=== PATIENT | female | born 1990 | race Caucasian/White ===

== ENCOUNTER 2018-05-20 16:44 | Emergency (ER) | payer MEDICAID ==
[~2018-05-20] VITALS: Ht 167.6 cm; Wt 81.7 kg
[~2018-05-20 16:44] MED LIST: ADVIL200 M1 PO; BACTRIM DS TAB1 EACH PO; CIPRO500 MG PO; NORCO 5-325 TA1 EACH PO; PERCOCET 5-3251 EACH PO; TAMSULOSIN HCL0.4 MG PO; ZOFRAN ODT4 MG PO; ZOFRAN ODT4 MG SL
[2018-05-20] MEDS ORDERED: CLEOCIN HCL300 MG PO (17:05)
== END 2018-05-20 20:35 | disposition short-term general hospital (02) ==
LOC: ED 16:44
DX: O86.0 Infection of obstetric surgical wound (principal); Z87.891 Personal history of nicotine dependence; Z88.0 Allergy status to penicillin; Z88.1 Allergy status to other antibiotic agents
CPT/HCPCS: 74177; 80053; 81001; 85025; 96361; 96374; 96375; 99284; J1170; J3370; J7030; J7060; Q9967

== ENCOUNTER 2020-06-02 13:11 | Emergency (ER) | payer OTHER ==
[~2020-06-02] VITALS: Ht 167.6 cm; Wt 81.7 kg
--- OUTSIDE RECORDS SUMMARY | ~2020-06-02 | XMS | Encounter Summary ---
Demographics + + + | Address | [address] | | | [place] [address] | + + + | Home Phone | | + + + | Preferred Language | Unknown | + + + | Marital Status | Single | + + + | Evangelical Affiliation | 1041 | + + + | Race | White | + + + | Ethnic Group | Not or | + + + Author + + + | Author | [facility] | | | and [place] | + + + | Organization | [facility] | | | and [place] | + + + | Address | Unknown | + + + | Phone | Unavailable | + + + Support + + +---------+ + | Name | Relationship | Address | Phone | + + +---------+ + | Kameron Jones | ECON | Unknown | | + + +---------+ + Care Team Providers + +------+ + | Care Satellite Manager Name | Role | Phone | + +------+ + | No, Physician | PCP | Unavailable | + +------+ + Encounter Details +--------+ + + + + | Date | Type | Department | Care Team | Description | +--------+ + + + + | 10/16/ | Hospital | [facility] | Durga Lozada | Encounter for | | 2020 | Encounter | CENTER OB PROCEDURES | MD Britt [address] | counseling | | | | [address] | [address] | (Primary Dx) | | | | [facility] [place] | [place] [address] | | | | | [address] | [phone] | | | | | [phone] | | | +--------+ + + + + Social History + +-------+ +--------+------+ | Tobacco Use | Types | Packs/Day | Years | Date | | | | | Used | | + +-------+ +--------+------+ | Former Smoker | | 0.25 | | | + +-------+ +--------+------+ + + + | Sex Assigned at | Date Recorded | | | | + + + | Not on file | | + + + documented as of this encounter Medications at Time of Discharge + + + +---------+ + + | Medication | Sig | Dispensed | Refills | Start | End Date | | | | | | Date | | + + + +---------+ + + | | TAKE 1 TO 2 CAPSULES | | 0 | 08/20/20 | | | [id number] | BY MOUTH 4 TIMES | | | 19 | | | UTALBITAL [phone] | DAILY NEEDED FOR | | | | | | MG CAPS | UP TO 10 DAYS | | | | | + + + +---------+ + + | docusate sodium | Take 1 capsule by | 60 | 0 | 10/15/20 | | | (COLACE) 100 mg | mouth 2 times daily. | capsule | | 19 | | | capsule | | | | | | + + + +---------+ + + | hydrOXYzine | Take 1 tablet by | 60 | 0 | 08/20/20 | | | hydrochloride | mouth every 6 hours | tablet | | 19 | | | (ATARAX) 25 mg | as needed for | | | | | | tablet | Itching, Anxiety or | | | | | | | Other (pain). | | | | | + + + +---------+ + + | methylPREDNISolone | Follow package | 21 | 0 | 10/15/20 | | | (MEDROL DOSEPAK) 4 | directions. | tablet | | 19 | | | mg tablet | | | | | | + + + +---------+ + + | Misc. Devices | Dispense 1 electric | 1 each | 0 | 08/05/20 | | | (BREAST PUMP) MISC | pump | | | 19 | | + + + +---------+ + + | 27-0.8 mg | Take 1 tablet by | | 0 | 03/05/20 | | | multivitamin tablet | mouth daily with | | | 18 | | | | breakfast. | | | | | + + + +---------+ + + | promethazine | Take 1 tablet by | 30 | 0 | 08/05/20 | | | (PHENERGAN) 25 mg | mouth every 8 hours | tablet | | 19 | | | tablet | as needed. | | | | | + + + +---------+ + + | ibuprofen | Take 1 tablet by | 30 | 0 | 10/15/20 | | | (ADVIL,MOTRIN) 800 | mouth every 8 hours | tablet | | 19 | 0 | | MG tablet | as needed for Pain | | | | | | | for up to 14 days. | | | | | + + + +---------+ + + | oxyCODONE | Take 1 tablet by | 12 | 0 | 10/15/20 | | | (ROXICODONE) 5 mg | mouth every 4 hours | tablet | | 19 | 0 | | tablet | as needed for Pain | | | | | | | for up to 6 days. | | | | | + + + +---------+ + + | | Take 1 tablet by | 14 | 0 | 10/16/19 | | | sulfamethoxazole-tri | mouth 2 times daily | tablet | | 20 | 0 | | methoprim (BACTRIM | for 7 days. | | | | | | DS) 800-160 mg per | | | | | | | tabletIndications: | | | | | | | Wound cellulitis | | | | | | | after surgery | | | | | | + + + +---------+ + + documented as of this encounter Miscellaneous Notes Note - Radha Laguerre RN - 10/16/2019 10:00 AM PSTPt here for PPC has been mos tly just and using occasional bottles of pumped milk as supplement. Pt pumped 2 oz from one breast yesterday. Baby latching well after a couple of attempts, then had sust ained rhythmic sucking with gulping at the breast. Having wet and yellow liquid stools at ea ch feeding. Nipples are not sore. Wt: 3232g, -3.7% Ac pc: 28g on the Left, 26 g on the Right= 54g total Bili: 10.3@83h, low risk Plan feed on demand, pump as needed to relieve engorgement, and pt to call for follow up qu estions about antbx Rx received for possible wound infection today, f/u for wound check at [facility] tomorrow per Dr. Mariscal. documented in this encounter Plan of Treatment Not on filedocumented as of this encounter Visit Diagnoses + + | Diagnosis | + + | Encounter for counseling - Primary | + + documented in this encounter"
--- OUTSIDE RECORDS SUMMARY | ~2020-06-02 | XMS | Encounter Summary ---
Demographics + + + | Address | [address] | | | [place] [address] | + + + | Home Phone | | + + + | Preferred Language | Unknown | + + + | Marital Status | Single | + + + | Episcopalian Affiliation | 1041 | + + + | Race | White | + + + | Ethnic Group | Not or | + + + Author + + + | Author | [facility] | | | and [place] | + + + | Organization | [facility] | | | and [...] Team Providers + +------+ + | Care Lining Feller Name | Role | Phone | + +------+ + | Unknown, Physician | PCP | | + +------+ + Reason for Visit + +--------+ + | Reason | Onset | Comments | | | Date | | + +--------+ + | Follow-up | 07/16/ | | | | 2019 | | + +--------+ + Encounter Details +--------+ + + + + | Date | Type | Department | Care Team | Description | +--------+ + + + + | 07/16/ | Telephone | [facility] | Jamir SHAN Fernández | Follow-up | | 2018 | | [facility] | | | | | | [facility] | | | | | | [address] | | | | | | [address] [facility] | | | | | | [place] [address] | | | | | | [phone] | | | +--------+ + + + [...] documented as of this encounter Miscellaneous Notes Telephone Encounter - Jolene Bowie RN - 07/16/2019 10:41 AM PDTPt called directly. She i s 25 weeks . She is having a backache and migraines off/on for 2 days. Says back p ain is sharp and constant. Says she is also feeling dizzy and having blurred vision. C/o h er hands feeling more swollen. Denies any urinary symptoms. Says she does get short of feliciano ath when she walks across the room. She has been eating regularly. Offered pt an appt today in office if someone is able to bring her. Declines this, as she lives in [place], [place]. P t will have someone drive her to [facility] to be seen, as it is closer. Advised he r to do this soon, as she at least needs her BP taken. States understanding and is agreeable . documented in this enc ounter Plan of Treatment Not on filedocumented as of this encounter Visit Diagnoses Not on filedocumented in this encounter"
--- OUTSIDE RECORDS SUMMARY | ~2020-06-02 | XMS | Encounter Summary ---
Demographics + + + | Address | [address] | | | [place] [address] | + + + | Home Phone | | + + + | Preferred Language | Unknown | + + + | Marital Status | Single | + + + | Mandaen Affiliation | 1041 | + + + | Race | White | + + + | Ethnic Group | Not or | + + + Author + + + | Author | [facility] | | | and [place] | + + + | Organization | [facility] | | | and [...] Team Providers + +------+ + | Care Employment Agency Manager Name | Role | Phone | + +------+ + | Unknown, Physician | PCP | | + +------+ + Reason for Visit + + + | Reason | Comments | + + + | Routine | | | Visit | | + + + Encounter Details +--------+ + + + + | Date | Type | Department | Care Team | Description | +--------+ + + + + | 08/20/ | Routine | [facility] | Marisela Garcia | GA: 30 | | 2019 | | [facility]ATED | MD [address] | | | | | [facility] | [address] | | | | | [address] | [place] [address] | | | | | [address] [place], | [phone] | | | | | [place] [address] | | | | | | [phone] | | | +--------+ + + + [...] + + documented as of this encounter Last Filed Vital Signs + + + + + | Vital Sign | Reading | Time Taken | Comments | + + + + + | Blood Pressure | 128/72 | 08/20/2019 9:10 AM | | | | | PST | | + + + + + | Pulse | - | - | | + + + + + | Temperature | - | - | | + + + + + | Respiratory Rate | - | - | | + + + + + | Oxygen Saturation | - | - | | + + + + + | Inhaled Oxygen | - | - | | | Concentration | | | | + + + + + | Weight | 95.4 kg (210 lb 6.4 | 08/20/2019 9:10 AM | | | | oz) | PST | | + + + + + | Height | - | - | | + + + + + | Body Mass Index | 33.96 | 03/07/2019 11:27 AM | | | | | PDT | | + + + + + documented in this encounter Progress Notes Jose, Marisela Summers MD - 08/20/2019 9:00 AM PSTPt denies any contractions, leaking, bleeding. Good movements. Normal symptoms of 3rd trimester discussed. PTL precautions. We discussed contraception options - not wanting TL [facility] needs preauth- will send in Hydroxyzine instead - to use with tylenol Labor process discussed forms signed today She does not want Tubal sterilization Continue DFMR F/U 2w Valerie Arevalo Automotive Painter - 08/20/2019 9:00 AM [id number] 30w1d BP 128/72 | Wt 95.4 kg (210 lb 6.4 oz) | BMI 33.96 kg/m TW.8 kg (30 lb 6.4 oz) IWlb Concerns: 1.) Unable to get [facility] Rx due to needed prior authorization. Will call pharmacy to fax ove r and completed LILIA. Tdap: planned - HD due to insurance Rhogam: not indicated do cumented in this encounter Plan of Treatment Not on filedocumented as of this encounter Visit Diagnoses + + | Diagnosis | + + | Supervision of high risk , antepartum - Primary | + + | Desires (vaginal after ) trial Previous delivery, | | unspecified as to episode of care or not applicable | + + | Previous delivery, antepartum | + + documented in this encounter"
--- OUTSIDE RECORDS SUMMARY | ~2020-06-02 | XMS | Encounter Summary ---
Demographics + + + | Address | [address] | | | [place] [address] | + + + | Home Phone | | + + + | Preferred Language | Unknown | + + + | Marital Status | Single | + + + | [employer] Affiliation | 1041 | + + + | Race | White | + + + | Ethnic Group | Not or | + + + Author + + + | Author | [facility] | | | and Hanyana | + + + | Organization | [facility] | | | [...] Team Providers + +------+ + | Care Breading Machine Tender Name | Role | Phone | + +------+ + PCP | Unavailable | + +------+ + Encounter Details +--------+ + + + + | Date | Type | Department | Care Team | Description | +--------+ + + + + | 02/18/ | Emergency | [facility] | Darrell Sow | Pelvic pain; | | 2016 | | [facility] | DO [address] | Elevated blood | | | | [facility] | [place] | pressure; PID (acute | | | | [address] | [place] | pelvic inflammatory | | | | [place] | [address] | disease) | | | | [address] | [phone] | | | | | [phone] | | | +--------+ + + + + Social History + +-------+ +--------+------+ | Tobacco Use | Types | Packs/Day | Years | Date | | | | | Used | | + +-------+ +--------+------+ | Never Assessed | | | | | + +-------+ +--------+------+ + [...] + + + | Blood Pressure | 133/77 | 02/18/2017 11:49 AM | | | | | PDT | | + + + + + | Pulse | 81 | 02/18/2017 11:49 AM | | | | | PDT | | + + + + + | Temperature | 36.6 C (97.9 F) | 02/18/2017 11:49 AM | | | | | PDT | | + + + + + | Respiratory Rate | 14 | 02/18/2017 11:49 AM | | | | | PDT | | + + + + + | Oxygen Saturation | - | - | | + + + + + | Inhaled Oxygen | - | - | | | Concentration | | | | + + + + + | Weight | 77.1 kg (169 lb 15.5 | 02/18/2017 11:49 AM | | | | oz) | PDT | | + + + + + | Height | 167.6 cm (5' 6") | 02/18/2017 11:49 AM | | | | | PDT | | + + + + + | Body Mass Index | 27.43 | 02/18/2017 11:49 AM | | | | | PDT | | + + + + + documented in this encounter ED Notes Conversion Transaction, Provider Unknown - 02/18/2017 10:23 AM PDTFormatting of this note m ight be different from the original. ED Notes by Gracie Cedillo RN at 02/18/17 1023 Author: Gracie Cedillo RN Service: (none) Author Type: Registered Nurse Filed: 02/18/17 1023 Date of Service: 02/18/17 102 Status: Signed Cotton Gin Yard Supervisor: Gracie Cedillo RN (Registered Nurse) Patient given instructions on how to obtain a clean catch urine specimen. Patient verbaliz ed understanding. Specimen cup and towelettes provided. Patient to bathroom to attempt col lection. Gracie Cedillo RN 02/18/17 1023 EEDEvans, Ash Burrell PA-C - 02/18/2017 10:23 AM PDT ED Provider Notes by Ash Anand PA-C at 02/18/17 1023 Author: Ash Anand PA-C Service: (none) Author Type: Physician Boxing Instructor Filed: 02/18/17 1258 Date of Service: 02/18/17 102 Status: Attested Cotton Gin Yard Supervisor: Ash Anand PA-C (Physician Boxing Instructor) Cosigner: Darrell Sow DO at 0 02/20/171846 Attestation signed by Darrell Sow DO at 02/20/171846 I have reviewed the patient's chart. I was available for consultation during the care of the patient. Darrell Sow DO Procedures [facility] EM[facility]Y [facility]MENT IN [place] History of Present Illness Patient Identification Hannah Cody is a 27 y.o. female. Patient information was obtained from patient. History/Exam limitations: none. Patient presented to the Emergency Department by: Car Chief Complaint Chief Complaint Patient presents with Pelvic Pain Pt reports bilateral "ovary pain" for a few months, which became unbearable today. 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 Pt denies abdnormal vagi nal bleeding or discharge. She also reports nausea but denies emesis, diarrhea, fever, and d ysuria. The patient complains of pelvic pain. Onset of symptoms was few months ago, worsening today . Pain is described as to her lower abdomen on both sides. Pt denies prior history of ovaria n cysts, endometriosis, vaginal bleeding, or vaginal discharge. Denies fever, diarrhea, or d ysuria. She denies concerns for STI. LMP 01/28/17. Pain not associated with menses. Past Medical History Diagnosis Date Kidney stones Past Surgical History Procedure Laterality Date Foot surgery Left 2005 Cholecystectomy 2012 Prior to Admission medications Medication Sig Start Date End Date Taking? Authorizing Provider albuterol (VENTOLIN HFA) 108 (90 Base) MCG/ACT inhaler Inhale 2 puffs into the lungs every 4 (four) hours as needed for Wheezing or Shortness of Breath (Or Cough). With spacer. Disp 1 spacer 02/13/17 02/13/18 Phil U Sam, PALLIATIVE CARE NURSE ALBUTEROL IN Inhale into the lungs. Historical Provider azithromycin (ZITHROMAX) 250 MG tablet 2 tablets PO on day 1. Then 1 tablet daily until go ne 02/13/17 Phil U Sam, PALLIATIVE CARE NURSE benzonatate (TESSALON) 200 MG capsule Take 1 capsule by mouth 3 (three) times daily as need ed for Cough. 02/13/17 02/20/17 Phil U Sam, PALLIATIVE CARE NURSE predniSONE (DELTASONE) 20 MG tablet Take 2 tablets by mouth daily. 02/13/17 02/17/17 Phil U Sam, PALLIATIVE CARE NURSE promethazine-dextromethorphan (PROMETHAZINE-DM) 6.25-15 MG/5ML syrup Take 10 mLs by mouth 3 (three) times daily as needed for Cough. 02/13/17 02/20/17 Phil U Sam, PALLIATIVE CARE NURSE Allergies Allergen Reactions Keflex [Cephalexin] Hives Penicillins Hives Social History Social History Marital Status: Single Spouse Name: N/A Number of Children: N/A Years of Education: N/A Occupational History Not on file. Social History Main Topics Smoking status: Current Every Day Smoker -- 0.25 packs/day for 7 years Smokeless tobacco: Never Used Alcohol Use: Yes Comment: occasional Drug Use: No Sexual Activity: Partners: Male Control/ Protection: Condom Other Topics Concern Not on file Social History Narrative History reviewed. No pertinent family history. ROS Review of Systems Constitutional: Negative for: fever, chills, fatigue, sweats or weight loss Eyes: Negative for: decreased vision or irritated eyes Nose: Negative for: nosebleed Throat: Negative for: mouth sores Cardiovascular/Respiratory: Negative for: chest pain, shortness of breath, cough Gastrointestinal: Negative for: abdominal pain, vomiting, diarrhea, black or bloody stools Genitourinary: Negative for: dysuria, hematuria, urinary problems Positive for: pelvic pain Musculoskeletal: Negative for: myalgias and arthralgias Skin: Negative for: laceration or lesion Neuro and psych: Negative for: fainting, head injury, seizure, trouble walking Endocrine/Heme/Lymph: Negative for: swollen lymph nodes, easy bruising Physical Exam BP 127/91 mmHg | Pulse 81 | Temp(Src) 97.9 F (36.6 C) (Oral) | Resp 12 | Ht 1.676 m (5' 6") | Wt 77.1 kg (169 lb 15.6 oz) | BMI 27.45 kg/m2 | SpO2 96% | LMP 01/28/2017 (Exact Date ) Pulse Oximetry interpretation: Normal General: Alert, in moderate distress, tearful Eyes: Normal inspection, pupils equal and round, non-icteric Cardiovascular: Rate and rhythm normal No murmurs Respiratory: Breath sounds normal bilaterally Abdomen: Soft, TTP to lower abdomen, non-distended No guarding or rebound Genitourinary: Normal external genitalia. Mild erythema to transition zone with small amoun t of offwhite discharge Tenderness with bimanual examination to bilateral adnexa's and cervix Rectal exam: Deferred Back: Normal inspection ED Course Medical Decision Making and Emergency Department Course ED Department Course Differential diagnosis includes, but not limited to: PID, ovarian cyst, ovarian torsion, ST I, endometrosis, IBD, UTI, appendicitis, versus others Discussed labs, pelvic exam and US for which patient is agreeable. 1050 Pelvic examination preformed with SHAN Bowman as size stamper, see above findings. 1055 CBC resulted, leukocytosis noted. 1115 CMP with mild hyponatremia otherwise unremarkable. CRP normal. Urine not overwhelming for UTI, automatically reflexed to culture. Wet prep with WBC's otherwise unremarkable. Kalyan morrissey US read 1117 POC reviewed with patient, awaiting US results. Pt appears comfortable at current time . Will treat with 1 g Azithromycin to cover chlamydia. Ceftriaxone not given secondary to Ke flex allergy. 1135 US resulted, normal in appearance. US reviewed with patient. Pt aware of culture callb ack. Pt is feeling better and ready for discharge. PID diagnosis discussed with patient. Fol low up with Delivery Driver recommended and return to ED if symptoms worsen. Records Reviewed Old medical records. Nursing notes. Labs & Radiology Results Laboratory Evaluation Results Procedure Component Value Ref Range Date/Time Genital culture [[id number]] Collected: 02/18/17 1048 Order Status: Sent Specimen Information: Genital from Cervix Updated: 02/18/17 1245 Wet Prep [[id number]] Collected: 02/18/17 1048 Order Status: Completed Specimen Information: Genital from Cervix Updated: 02/18/17 1 105 Specimen Description CERVIX CULTURE WBC'S SEEN NO YEAST,TRICHOMONAS,OR CLUE CELLS SEEN NO SPERM SEEN Complete Metabolic Panel [[id number]] (Abnormal) Collected: 02/18/17 1033 Order Status: Completed Specimen Information: Blood Updated: 02/18/17 1103 SODIUM 132 (L) 135 - 145 mmol/L POTASSIUM 3.7 3.5 - 4.9 mmol/L CHLORIDE 98 (L) 99 - 109 mmol/L CO2 29 23 - 32 mmol/L ANION GAP AGAP 9 5 - 20 mmol/L GLUCOSE 87 65 - 99 mg/dL BUN 12 8 - 25 mg/dL CREATININE 0.84 0.50 - 1.00 mg/dL BUN/CREAT 14 CALCIUM 9.2 8.5 - 10.5 mg/dL TOTAL PROTEIN 8.2 6.3 - 8.2 g/dL Albumin 4.4 3.6 - 5.0 g/dL GLOBULIN 3.8 1.3 - 4.9 g/dL A/G 1.2 1.0 - 2.4 TBIL 0.2 0.1 - 1.5 mg/dL ALK PHOS 85 35 - 115 U/L AST 16 10 - 45 U/L ALT 34 10 - 65 U/L EGFR >60 >60 mL/min/1.73m2 C-Reactive Protein [[id number]] Collected: 02/18/17 1033 Order Status: Completed Specimen Information: Blood Updated: 02/18/17 1103 CRP <0.2 <0.5 mg/dL GC/Chlamydia Probe-Aptima [[id number]] Collected: 02/18/17 1048 Order Status: Sent Specimen Information: Cervix, Endocervical Updated: 02/18/17 1056 Urine microscopic only [[id number]] (Abnormal) Collected: 02/18/17 1033 Order Status: Completed Updated: 02/18/17 1053 WBC 6-10 0 - 5 /hpf RBC 0-2 0 - 5 /hpf EPITHELIAL 16-25 /lpf BACTERIA 2+ (A) NONE SEEN Urinalysis Comments CULTURE TO FOLLOW Urinalysis (reflex to microscopic/reflex to culture) [[id number]] (Abnormal) Collected: 02/18/17 103 Order Status: Completed Specimen Information: Urine from Urine, Clean Catch Updated: 02/18/17 1052 COLOR UA YELLOW CLARITY CLEAR Specific [place], UA 1.010 1.001 - 1.035 LEUKOCYTE ESTERASE TRACE (A) NEGATIVE NITRITE NEGATIVE NEGATIVE UROBILINOGEN 0.2 <1.1 mg/dL PROTEIN NEGATIVE NEGATIVE mg/dL PH,URINE 6.0 4.6 - 8.0 BLOOD NEGATIVE NEGATIVE KETONES NEGATIVE NEGATIVE mg/dL BILIRUBIN NEGATIVE NEGATIVE GLUCOSE NEGATIVE NEGATIVE mg/dL Urine Test [[id number]] Collected: 02/18/17 103 Order Status: Completed Specimen Information: Urine from Urine, Clean Catch Updated: 02/18/17 1047 Preg Test, Ur NEGATIVE NEGATIVE CBC w Auto Diff [[id number]] (Abnormal) Collected: 02/18/17 1033 Order Status: Completed Specimen Information: Blood Updated: 02/18/17 1046 WBC 18.59 (H) 3.80 - 11.00 K/uL RBC 5.34 (H) 3.70 - 5.10 M/uL HGB 15.9 (H) 11.3 - 15.5 g/dL HCT 47.1 (H) 34.0 - 46.0 % MCV 88.3 80.0 - 100.0 fl MCH 29.9 27.0 - 34.0 pg MCHC 33.8 32.0 - 35.5 g/dL RDW SD 41.1 37 - 53 fl PLT 257 150 - 400 K/uL MPV 7.5 fl DIFF TYPE AUTOMATED NEUTROPHILS 76.52 % LYMPHOCYTES 17.68 % MONOCYTES 5.16 % EOSINOPHILS 0.30 % BASOPHILS 0.34 % NEUTROPHILS ABS 14.23 (H) 1.90 - 7.40 K/uL LYMPHOCYTES ABS 3.29 1.00 - 3.90 K/uL MONOCYTES ABS 0.96 (H) 0.00 - 0.80 K/uL EOSINOPHILS ABS 0.06 0.00 - 0.50 K/uL BASOPHILS ABS 0.06 0.00 - 0.10 K/uL Radiology and EKG Evaluation Imaging Results US FEED ELEVATOR WORKER pelvis transabd/endovaginal (Final result) Result time: 02/18/17 11:22:35 Final result by Rad Results In Eliecer (02/18/17 11:22:35) Impression: 1. Normal sonographic appearance of the uterus and ovaries. Narrative: HANNAH CODY 1990 US PELVIS WITH ENDOVAGINAL 02/18/2017 11:19 AM HISTORY: Generalized pelvic pain COMPARISON: None. TECHNIQUE: Transabdominal and endovaginal pelvic ultrasound performed, grayscale and color flow evaluation. FINDINGS: The uterus is anteverted in position. The ovaries are not seen on transabdominal imaging. On endovaginal pelvic ultrasound, the uterus measures 8.5 x 3.8 x 5.4 cm. The endometrial c omplex measures 1.1 cm in thickness with a trilaminar appearance. The left ovary measures 2.0 x 2.2 x 3.5 cm. Scattered follicles are seen along the peripher y of the left ovary. Normal arterial waveforms are documented. The right ovary measures 4.3 x 2.5 x 3.4 cm. There are normal arterial waveforms of the rig ht ovary. Scattered follicles are seen along the periphery of the right ovary. There is no f ree fluid in the cul-de-sac. Diagnosis & Disposition ED Diagnoses Final diagnoses Pelvic pain Elevated blood pressure PID (acute pelvic inflammatory disease) Disposition: ED Disposition Discharge Condition at discharge: Stable Follow-up Information Follow up With Details Comments Contact Info [facility] Emergency Department in [place] If symptoms worsen [address] [facility] [address] Your Delivery Driver Schedule an appointment as soon as possible for a visit Call for the nex t available appointment [facility] Schedule an appointment as soon as possible for a visit If you would prefer to follow up with another OB [address], [address] [facility] [address] [facility] MD [place] In 4 weeks For elevated blood pressure [address] [facility] [address] Discharge Medications: Discharge Medication List as of 02/18/2017 11:45 AM START taking these medications Details doxycycline (VIBRA-TABS) 100 MG tablet Take 1 tablet by mouth 2 (two) times daily., Startin g 02/18/2017, Until 03/04/17, Print HYDROcodone-acetaminophen (NORCO) 5-325 MG per tablet Take 1-2 tablets by mouth every 6 (si x) hours as needed. Do not exceed 8 in a 24 hour period. Do not take Tylenol, as this medic ation has Tylenol in it., Starting 02/18/2017, Until Discontinued, Print Ash Anand PA-C 02/18/17 1258 Darrell Sow DO 02/20/17 6657 documented in this encounter Plan of Treatment Not on filedocumented as of this encounter Procedures + +--------+ + + + | Procedure Name | Priori | Date/Time | Associated Diagnosis | Comments | | | ty | | | | + +--------+ + + + | US PELVIS W | Routin | 02/18/2017 | | Results for this | | TRANSVAGINAL | e | 11:19 AM | | procedure are in the | | | | PDT | | results section. | + +--------+ + + + | GC/CHLAM APTIMA | Routin | 02/18/2017 | | Results for this | | | e | 10:48 AM | | procedure are in the | | | | PDT | | results section. | + +--------+ + + + | RONAL GENITAL | Timed | 02/18/2017 | | Results for this | | | | 10:48 AM | | procedure are in the | | | | PDT | | results section. | + +--------+ + + + | COLLIN KING | STAT | 02/18/2017 | | Results for this | | | | 10:48 AM | | procedure are in the | | | | PDT | | results section. | + +--------+ + + + | EXTERNAL LAB: CBC | Routin | 02/18/2017 | | Results for this | | | e | 10:33 AM | | procedure are in the | | | | PDT | | results section. | + +--------+ + + + | URINALYSIS, REFLEX | Routin | 02/18/2017 | | Results for this | | MICROSCOPIC AND/OR | e | 10:33 AM | | procedure are in the | | CULTURE | | PDT | | results section. | + +--------+ + + + | URINALYSIS, | Routin | 02/18/2017 | | Results for this | | MICROSCOPIC ONLY | e | 10:33 AM | | procedure are in the | | | | PDT | | results section. | + +--------+ + + + | HCG, URINE, QUAL | Routin | 02/18/2017 | | Results for this | | | e | 10:33 AM | | procedure are in the | | | | PDT | | results section. | + +--------+ + + + | CULTURE, URINE | Routin | 02/18/2017 | | Results for this | | | e | 10:33 AM | | procedure are in the | | | | PDT | | results section. | + +--------+ + + + | C-REACTIVE PROTEIN | Routin | 02/18/2017 | | Results for this | | | e | 10:33 AM | | procedure are in the | | | | PDT | | results section. | + +--------+ + + + | COMPREHENSIVE | Routin | 02/18/2017 | | Results for this | | METABOLIC PANEL | e | 10:33 AM | | procedure are in the | | | | PDT | | results section. | + +--------+ + + + documented in this encounter Results US Pelvis W Transvaginal (02/18/2017 11:19 AM PDT) + + | Specimen | + + | | + + + + + | Impressions | Performed At | + + + | 1. Normal sonographic appearance of the uterus and ovaries. | | | | | + + + + + + | Narrative | Performed At | + + + | HANNAH GLO 1990 US PELVIS WITH ENDOVAGINAL 02/18/2017 | | | 11:19 AM HISTORY: Generalized pelvic pain COMPARISON: None. | | | TECHNIQUE: Transabdominal and endovaginal pelvic ultrasound | | | performed, grayscale and color flow evaluation. FINDINGS: The | | | uterus is anteverted in position. The ovaries are not seen on | | | transabdominal imaging. On endovaginal pelvic ultrasound, the | | | uterus measures 8.5 x 3.8 x 5.4 cm. The endometrial complex measures | | | 1.1 cm in thickness with a trilaminar appearance. The left ovary | | | measures 2.0 x 2.2 x 3.5 cm. Scattered follicles are seen along the | | | periphery of the left ovary. Normal arterial waveforms are documented. | | | The right ovary measures 4.3 x 2.5 x 3.4 cm. There are normal | | | arterial waveforms of the right ovary. Scattered follicles are seen | | | along the periphery of the right ovary. There is no free fluid in the | | | cul-de-sac. | | + + + + + | Procedure Note | + + | Harry Gonzáles Conversion - 05/30/2019 2:18 AM PDT HANNAH CODY1990US PELVIS WITH | | ENDOVAGINAL02/18/2017 11:19 AM HISTORY: Generalized pelvic pain COMPARISON: None. | | TECHNIQUE: Transabdominal and endovaginal pelvic ultrasound performed, grayscale and | | color flow evaluation. FINDINGS: The uterus is anteverted in position. The ovaries are | | not seen on transabdominal imaging. On endovaginal pelvic ultrasound, the uterus | | measures 8.5 x 3.8 x 5.4 cm. The endometrial complex measures 1.1 cm in thickness with a | | trilaminar appearance. The left ovary measures 2.0 x 2.2 x 3.5 cm. Scattered follicles | | are seen along the periphery of the left ovary. Normal arterial waveforms are | | documented. The right ovary measures 4.3 x 2.5 x 3.4 cm. There are normal arterial | | waveforms of the right ovary. Scattered follicles are seen along the periphery of the | | right ovary. There is no free fluid in the cul-de-sac. IMPRESSION: 1. Normal | | sonographic appearance of the uterus and ovaries. | |On endovaginal pelvic ultrasound, the uterus measures 8.5 x 3.8 x 5.4 cm. The endometrial c omplex measures 1.1 cm in thickness with a trilaminar appearance. | | | |The left ovary measures 2.0 x 2.2 x 3.5 cm. Scattered follicles are seen along the peripher y of the left ovary. Normal arterial waveforms are documented. | | | |The right ovary measures 4.3 x 2.5 x 3.4 cm. There are normal arterial waveforms of the rig ht ovary. Scattered follicles are seen along the periphery of the right ovary. There is no f ree fluid in the cul-de-sac. | | | |IMPRESSION: | |1. Normal sonographic appearance of the uterus and ovaries. | | | | | + + Culture, Genital (02/18/2017 10:48 AM PDT) + + | Specimen | + + | | + + + + + | Narrative | Performed At | + + + | Specimen Description CERVIX CULTURE | EXTERNAL LAB | | 2+ | | | NORMAL GENITAL AMOR | | | NO FURTHER WORKUP | | + + + + +---------+ + + | Performing | Address | City/State/Zipcode | Phone Number | | Organization | | | | + +---------+ + + | EXTERNAL LAB | | | | + +---------+ + + [place], Genital (02/18/2017 10:48 AM PDT) + + | Specimen | + + | | + + + + + | Narrative | Performed At | + + + | Specimen Description CERVIX CULTURE | EXTERNAL LAB | | WBC'S SEEN | | | NO YEAST,TRICHOMONAS,OR CLUE CELLS | | | SEEN NO SPERM | | | SEEN | | + + + + +---------+ + + | Performing | Address | City/State/Zipcode | Phone Number | | Organization | | | | + +---------+ + + | EXTERNAL LAB | | | | + +---------+ + + GC/Chlam Aptima (02/18/2017 10:48 AM PDT) + + + + + + | Component | Value | Ref Range | Performed | Pathologist | | | | | At | Signature | + + + + + + | Source | CERVIXComment: Testing | | EXTERNAL | | | | performed at [facility], [address] | [address] | | [address], | | | | | | [place] [address] | | | | + + + + + + | Chlamydia | Not Detected | | EXTERNAL | | | Trachomatis | | | LAB | | | Naat | | | | | + + + + + + | Result | Not DetectedComment: | | EXTERNAL | | | | Testing performed at | | LAB | | | | [facility], [address] [facility] | | | | | | [place] | | | | | | [address] | | | | + + + + + + + + | Specimen | + + | | + + + +---------+ + + | Performing | Address | City/State/Zipcode | Phone Number | | Organization | | | | + +---------+ + + | EXTERNAL LAB | | | | + +---------+ + + Culture, Urine (02/18/2017 10:33 AM PDT) + + | Specimen | + + | | + + + + + | Narrative | Performed At | + + + | Specimen Description CLEAN CATCH URINE CULTURE | EXTERNAL LAB | | <10,000 CFU/ML | | | MIXED GRAM POSITIVE AMOR | | | NO FURTHER WORKUP | | + + + + +---------+ + + | Performing | Address | City/State/Zipcode | Phone Number | | Organization | | | | + +---------+ + + | EXTERNAL LAB | | | | + +---------+ + + Urinalysis, Reflex Microscopic and/or Culture (02/18/2017 10:33 AM PDT) + + + + + + | Component | Value | Ref Range | Performed | Pathologist | | | | | At | Signature | + + + + + + | Color | YELLOW | | EXTERNAL | | | | | | LAB | | + + + + + + | Clarity, | CLEAR | | EXTERNAL | | | Urine | | | LAB | | + + + + + + | Specific | 1.010 | 1.001 - 1.035 | EXTERNAL | | | [place], | | | LAB | | | Urine | | | | | + + + + + + | Leukocyte | TRACE (A) | | EXTERNAL | | | Esterase, | | | LAB | | | Urine | | | | | + + + + + + | Nitrite, | NEGATIVE | | EXTERNAL | | | Urine | | | LAB | | + + + + + + | Urobilinoge | 0.2 | mg/dL | EXTERNAL | | | n, Urine | | | LAB | | + + + + + + | Protein, | NEGATIVE | mg/dL | EXTERNAL | | | Urine | | | LAB | | + + + + + + | pH, Urine | 6.0 | 4.6 - 8.0 | EXTERNAL | | | | | | LAB | | + + + + + + | Blood, | NEGATIVE | | EXTERNAL | | | Urine | | | LAB | | + + + + + + | Ketones | NEGATIVE | mg/dL | EXTERNAL | | | | | | LAB | | + + + + + + | Bilirubin, | NEGATIVE | | EXTERNAL | | | Urine | | | LAB | | + + + + + + | Glucose, | NEGATIVEComment: Testing | mg/dL | EXTERNAL | | | Urine | performed at [facility], [address] | | [address] | | | | [address], | | | | | | [place] [address] | | | | + + + + + + + + | Specimen | + + | Urine specimen | | (specimen) | + + + +---------+ + + | Performing | Address | City/State/Zipcode | Phone Number | | Organization | | | | + +---------+ + + | EXTERNAL LAB | | | | + +---------+ + + , Urine, Qual (02/18/2017 10:33 AM PDT) + + + + + + | Component | Value | Ref Range | Performed | Pathologist | | | | | At | Signature | + + + + + + | Preg Test, | NEGATIVEComment: Testing | | EXTERNAL | | | Ur | performed at [facility], [address] | | LAB | | [address] | [address], | | | | | | [place] [address] | | | | + + + + + + + + | Specimen | + + | Urine specimen | | (specimen) | + + + +---------+ + + | Performing | Address | City/State/Zipcode | Phone Number | | Organization | | | | + +---------+ + + | EXTERNAL LAB | | | | + +---------+ + + Urinalysis, Microscopic Only (02/18/2017 10:33 AM PDT) + + + + + + | Component | Value | Ref Range | Performed | Pathologist | | | | | At | Signature | + + + + + + | WBC, UA | 6-10 | 0 - 5 /hpf | EXTERNAL | | | | | | LAB | | + + + + + + | RBC, UA | 0-2 | 0 - 5 /hpf | EXTERNAL | | | | | | LAB | | + + + + + + | Epithelial | 16-25 | /lpf | EXTERNAL | | | Cells | | | LAB | | + + + + + + | Bacteria, | 2+ (A) | | EXTERNAL | | | UA | | | LAB | | + + + + + + | Urinalysis | CULTURE TO | | EXTERNAL | | | Comments | FOLLOWComment: Testing | | LAB | | | | performed at [facility], [address] | | [address], | | | | | | [place] [address] | | | | + + + + + + + + | Specimen | + + | | + + + +---------+ + + | Performing | Address | City/State/Zipcode | Phone Number | | Organization | | | | + +---------+ + + | EXTERNAL LAB | | | | + +---------+ + + External Lab: CBC (02/18/2017 10:33 AM PDT) + + + + + + | Component | Value | Ref Range | Performed | Pathologist | | | | | At | Signature | + + + + + + | WBC | 18.59 (H) | 3.80 - 11.00 | EXTERNAL | | | | | K/uL | LAB | | + + + + + + | Non- | 5.34 (H) | 3.70 - 5.10 | EXTERNAL | | | Red Blood | | M/uL | LAB | | | Cells | | | | | | Counted | | | | | + + + + + + | Hemoglobin | 15.9 (H) | 11.3 - 15.5 | EXTERNAL | | | | | g/dL | LAB | | + + + + + + | Hematocrit, | 47.1 (H) | 34.0 - 46.0 % | EXTERNAL | | | POC | | | LAB | | + + + + + + | MCV | 88.3 | 80.0 - 100.0 fl | EXTERNAL | | | | | | LAB | | + + + + + + | MCH | 29.9 | 27.0 - 34.0 pg | EXTERNAL | | | | | | LAB | | + + + + + + | MCHC | 33.8 | 32.0 - 35.5 | EXTERNAL | | | | | g/dL | LAB | | + + + + + + | RDW-CV | 41.1 | 37 - 53 fl | EXTERNAL | | | | | | LAB | | + + + + + + | Platelet | 257 | 150 - 400 K/uL | EXTERNAL | | | Count | | | LAB | | | Plasma | | | | | + + + + + + | MPV | 7.5 | fl | EXTERNAL | | | | | | LAB | | + + + + + + | Differentia | AUTOMATED | | EXTERNAL | | | l Type | | | LAB | | + + + + + + | % Segmented | 76.52 | % | EXTERNAL | | | | | | LAB | | | Neutrophils | | | | | + + + + + + | % | 17.68 | % | EXTERNAL | | | Lymphocytes | | | LAB | | + + + + + + | % Monocytes | 5.16 | % | EXTERNAL | | | | | | LAB | | + + + + + + | % | 0.30 | % | EXTERNAL | | | Eosinophils | | | LAB | | + + + + + + | % Basophils | 0.34 | % | EXTERNAL | | | | | | LAB | | + + + + + + | Absolute | 14.23 (H) | 1.90 - 7.40 | EXTERNAL | | | Segmented | | K/uL | LAB | | | Neutrophils | | | | | + + + + + + | Absolute | 3.29 | 1.00 - 3.90 | EXTERNAL | | | Lymphocytes | | K/uL | LAB | | + + + + + + | Absolute | 0.96 (H) | 0.00 - 0.80 | EXTERNAL | | | Monocytes | | K/uL | LAB | | + + + + + + | Absolute | 0.06 | 0.00 - 0.50 | EXTERNAL | | | Eosinophils | | K/uL | LAB | | + + + + + + | Absolute | 0.06Comment: Testing | 0.00 - 0.10 | EXTERNAL | | | Basophils | performed at [facility], [address] | [address] | | | | [address] [place], | | | | | | [place] [address] | | | | + + + + + + + + | Specimen | + + | Blood specimen | | (specimen) | + + + +---------+ + + | Performing | Address | City/State/Zipcode | Phone Number | | Organization | | | | + +---------+ + + | EXTERNAL LAB | | | | + +---------+ + + C-Reactive Protein (02/18/2017 10:33 AM PDT) + + + + + + | Component | Value | Ref Range | Performed | Pathologist | | | | | At | Signature | + + + + + + | CRP | <0.2Comment: Testing | mg/dL | EXTERNAL | | | | performed at [facility], [address] | | LAB | | | | [address], | | | | | | [place] [address] | | | | + + + + + + + + | Specimen | + + | Blood specimen | | (specimen) | + + + +---------+ + + | Performing | Address | City/State/Zipcode | Phone Number | | Organization | | | | + +---------+ + + | EXTERNAL LAB | | | | + +---------+ + + Comprehensive Metabolic Panel (02/18/2017 10:33 AM PDT) + + + + + + | Component | Value | Ref Range | Performed | Pathologist | | | | | At | Signature | + + + + + + | Na | 132 (L) | 135 - 145 | EXTERNAL | | | | | mmol/L | LAB | | + + + + + + | K | 3.7 | 3.5 - 4.9 | EXTERNAL | | | | | mmol/L | LAB | | + + + + + + | Cl | 98 (L) | 99 - 109 mmol/L | EXTERNAL | | | | | | LAB | | + + + + + + | CO2 | 29 | 23 - 32 mmol/L | EXTERNAL | | | | | | LAB | | + + + + + + | Anion Gap | 9 | 5 - 20 mmol/L | EXTERNAL | | | | | | LAB | | + + + + + + | Glucose, | 87 | 65 - 99 mg/dL | EXTERNAL | | | Fasting | | | LAB | | + + + + + + | BUN | 12 | 8 - 25 mg/dL | EXTERNAL | | | | | | LAB | | + + + + + + | Creatinine | 0.84 | 0.50 - 1.00 | EXTERNAL | | | | | mg/dL | LAB | | + + + + + + | BUN/Creatin | 14 | | EXTERNAL | | | ine Ratio | | | LAB | | + + + + + + | Calcium | 9.2 | 8.5 - 10.5 | EXTERNAL | | | | | mg/dL | LAB | | + + + + + + | Protein, | 8.2 | 6.3 - 8.2 g/dL | EXTERNAL | | | Total | | | LAB | | + + + + + + | Albumin | 4.4 | 3.6 - 5.0 g/dL | EXTERNAL | | | | | | LAB | | + + + + + + | Globulin | 3.8 | 1.3 - 4.9 g/dL | EXTERNAL | | | | | | LAB | | + + + + + + | A/G Ratio | 1.2 | 1.0 - 2.4 | EXTERNAL | | | | | | LAB | | + + + + + + | Bilirubin | 0.2 | 0.1 - 1.5 mg/dL | EXTERNAL | | | Total | | | LAB | | + + + + + + | ALP, | 85 | 35 - 115 U/L | EXTERNAL | | | External | | | LAB | | + + + + + + | AST | 16 | 10 - 45 U/L | EXTERNAL | | | | | | LAB | | + + + + + + | ALT | 34 | 10 - 65 U/L | EXTERNAL | | | | | | LAB | | + + + + + + | Estimated | >60Comment: GFR <60: | mL/min/1.73m2 | EXTERNAL | | | GFR | CHRONIC KIDNEY DISEASE, | | LAB | | | | IF FOUND OVER A 3 MONTH | | | | | | PERIOD.GFR <15: KIDNEY | | | | | | FAILURE.FOR | | | | | | AMERICANS, MULTIPLY THE | | | | | | CALCULATED GFR BY | | | | | | 1.210.Testing performed | | | | | | at [facility], [address] | | | | | | [place] | | | | | | [address] | | | | + + + + + + + + | Specimen | + + | Blood specimen | | (specimen) | + + + +---------+ + + | Performing | Address | City/State/Zipcode | Phone Number | | Organization | | | | + +---------+ + + | EXTERNAL LAB | | | | + +---------+ + + documented in this encounter Visit Diagnoses + + | Diagnosis | + + | Pelvic pain | + + | Elevated blood pressure Elevated blood pressure reading without diagnosis of | | hypertension | + + | PID (acute pelvic inflammatory disease) Acute parametritis and pelvic cellulitis | + + documented in this encounter
--- OUTSIDE RECORDS SUMMARY | ~2020-06-02 | XMS | Encounter Summary ---
Demographics + + + | Address | [address] | | | [place] [address] | + + + | Home Phone | | + + + | Preferred Language | Unknown | + + + | Marital Status | Single | + + + | Yarsani Affiliation | 1041 | + + + | Race | White | + + + | Ethnic Group | Not or | + + + Author + + + | Author | [facility] | | | and Hanyana | + + + | Organization | [facility] | | | and [...] Team Providers + +------+ + | Care Merchandise Buyer Name | Role | Phone | + +------+ + | No, Physician | PCP | Unavailable | + +------+ + Encounter Details +--------+ + + + + | Date | Type | Department | Care Team | Description | +--------+ + + + + | 03/05/ | Orders Only | [facility] | Conversion | | | 2018 | | CONVERSION [phone] | Transaction, | | | | | [address] | Provider Unknown | | | | | [place], [place] | | | | | | [phone] | (Fax) | | | | | | | | +--------+ + + + [...] + + documented as of this encounter Plan of Treatment Not on filedocumented as of this encounter Visit Diagnoses Not on filedocumented in this encounter"
--- OUTSIDE RECORDS SUMMARY | ~2020-06-02 | XMS | Clinical Summary ---
Demographics + + + | Address | [address] | | | [place] [address] | + + + | Home Phone | | + + + | Preferred Language | Unknown | + + + | Marital Status | Single | + + + | Cheondoism Affiliation | 1041 | + + + | Race | White | + + + | Ethnic Group | Not or | + + + Author + + + | Author | [facility] | | | and Hanyana | + + + | Organization | [facility] | | | and [...] Team Providers + +------+ + | Care Training Representative Name | Role | Phone | + +------+ + | No, Physician | PCP | Unavailable | + +------+ + Allergies + + + + + + | Active Allergy | Reactions | Severity | Noted | Comments | | | | | Date | | + + + + + + | Chlorhexidine | Rash | High | 11/07/19 | I recommend using | | Gluconate | | | 20 | iodine-based prep in | | | | | | the future. Very | | | | | | clinically | | | | | | significant rash | | | | | | occurred in the area | | | | | | of the ChloraPrep | | | | | | exposed prep area. | | | | | | Did not cause any | | | | | | respiratory issues | | | | | | but required | | | | | | systemic steroid | | | | | | therapy to control | | | | | | the itching symptoms | + + + + + + | Cephalexin | Hives | High | 02/14/20 | | | | | | 17 | | + + + + + + | Penicillins | Hives | High | 02/14/20 | | | | | | 17 | | + + + + + + | Sumatriptan | Other (See Comments) | Medium | 01/01/20 | | | | | | 19 | | + + + + + + | Vancomycin | Hives | High | 08/27/20 | | | | | | 18 | | + + + + + + Medications + + + +---------+------+------+-------+ | Medication | Sig | Dispensed | Refills | Star | End | Statu | | | | | | t | Date | s | | | | | | Date | | | + + + +---------+------+------+-------+ | 27-0.8 mg | Take 1 tablet by | | 0 | 05/2 | | Activ | | multivitamin tablet | mouth daily with | | | 1/20 | | e | | | breakfast. | | | 18 | | | + + + +---------+------+------+-------+ | Misc. Devices | Dispense 1 electric | 1 each | 0 | 10/2 | | Activ | | (BREAST PUMP) MISC | pump | | | 1/20 | | e | | | | | | 19 | | | + + + +---------+------+------+-------+ | promethazine | Take 1 tablet by | 30 | 0 | 10/2 | | Activ | | (PHENERGAN) 25 mg | mouth every 8 hours | tablet | | 1/20 | | e | | tablet | as needed. | | | 19 | | | + + + +---------+------+------+-------+ +---+ + | | Additional | | | InformationPatient | | | not taking. Reported | | | on 10/17/2019 2:20 | | | PM | +---+ + + + +--------+---+------+---+-------+ | hydrOXYzine | Take 1 tablet by | 60 | 0 | 11/0 | | Activ | | hydrochloride | mouth every 6 hours | tablet | | 5/20 | | e | | (ATARAX) 25 mg | as needed for | | | 19 | | | | tablet | Itching, Anxiety or | | | | | | | | Other (pain). | | | | | | + + +--------+---+------+---+-------+ +---+ + | | Additional | | | InformationPatient | | | not taking. Reported | | | on 10/17/2019 2:20 | | | PM | +---+ + + + +---------+---+------+---+-------+ | | TAKE 1 TO 2 CAPSULES | | 0 | 11/0 | | Activ | | [id number] | BY MOUTH 4 TIMES | | | 5/20 | | e | | UTALBITAL 50-325-40 | DAILY NEEDED FOR | | | 19 | | | | MG CAPS | UP TO 10 DAYS | | | | | | + + +---------+---+------+---+-------+ | methylPREDNISolone | Follow package | 21 | 0 | 12/3 | | Activ | | (MEDROL DOSEPAK) 4 | directions. | tablet | | /20 | | e | | mg tablet | | | | 19 | | | + + +---------+---+------+---+-------+ | docusate sodium | Take 1 capsule by | 60 | 0 | 12/3 | | Activ | | (COLACE) 100 mg | mouth 2 times daily. | capsule | | 1/20 | | e | | capsule | | | | 19 | | | + + +---------+---+------+---+-------+ | clotrimazole | Apply twice daily to | 24 g | 1 | 01/0 | | Activ | | (LOTRIMIN) 1% | affected area | | | 2/20 | | e | | creamIndications: | | | | 20 | | | | Tinea cruris | | | | | | | + + +---------+---+------+---+-------+ Active Problems + + + | Problem | Noted Date | + + + | Tinea cruris | 10/17/2019 | + + + + + | Overview: October 17, 2019, some evidence of tinea cruris in | | her pannus fold and groin, antifungal recommended. Image taken | | and can be seen in the media tab | + + + + + | Allergic reaction to chemical substance | 10/17/2019 | + + + + + | Overview: 10/17/2019, pt had a rxnto the abdominal prep | | solution at time of her , it has now worsened and she | | has issues w/ her pannus fold, no bactera infection | + + + + + | Delivered by delivery following previous | 10/14/2019 | | delivery | | + + + | Delivery outcome of single liveborn | 10/14/2019 | + + + | Urticaria | 10/14/2019 | + + + | Onset (spontaneous) of labor after 37 completed weeks of | 10/12/2019 | | gestation but before 39 completed weeks gestation, with delivery | | | by (planned) section | | + + + + + | Overview: Patient presented in early labor and underwent | | repeat delivery | + + + + + | Excessive growth affecting management of in third | 08/05/2019 | | trimester | | + + + | Supervision of high risk , antepartum | 07/08/2019 | + + + + + | Overview: Patient is high risk due to history of prior | | delivery | + + + + + | Short interval between pregnancies affecting , | 03/19/2019 | | antepartum | | + + + | Previous delivery, antepartum | 03/19/2019 | + + + + + | Overview: Operation Report dated 05/14/2018. [id number], | | Arrest of Dilation. Primary Low Transverse Section | + + + + + | Desires (vaginal after ) trial | 03/19/2019 | + + + + + | Overview: Based on recent obstetrical visit patient has opted | | for repeat section and this was scheduled for October 21 | | with Dr. Garcia | + + + + + | History of acute PID | 02/28/2017 | + + + Immunizations + + + + | Name | Administration Dates | Next Due | + + + + | DTP (PED) | 1996, 09/03/1992, 1991, | | | | 1991, 1991 | | + + + + | HEP A, 2 DOSE | 02/23/2000, 07/22/1999 | | | (PED/ADOL) | | | + + + + | HIB HBOC CONJUGATE, | 07/15/1992, 06/19/1992, 1991, | | | 4 DOSE (PED) | 1991, 1991 | | + + + + | Hep B (PED/ADOL) 3 | 12/10/1999, 05/07/1999, 03/25/1999 | | | DOSE | | | + + + + | INFLUENZA TRIV | 08/29/2019 | | | W/PRES(PED/ADOL/ADUL | | | | T),MULTIDOSE | | | + + + + | MMR, 2 DOSE | 05/07/1999, 07/15/1992, 06/19/1992 | | | (PED/ADULT) | | | + + + + | POLIOVIRUS,OPV | 1996, 09/03/1992, 1991, | | | (LIVE) | 1991 | | + + + + | TDAP, (ADOL/ADULT) | 08/29/2019, 03/13/2018, 11/21/2013 | | + + + + Family History + + +------+ + | Medical History | Relation | Name | Comments | + + +------+ + | Diabetes, NIDDM | Father | | | + + +------+ + | Multiple sclerosis | Mother | | | + + +------+ + | Breast cancer | Neg Hx | | | + + +------+ + | Diabetes, IDDM | Neg Hx | | | + + +------+ + | Heart defect | Neg Hx | | | + + +------+ + | Heart disease | Neg Hx | | | + + +------+ + | Uterine cancer | Neg Hx | | | + + +------+ + + +------+ + + | Relation | Name | Status | Comments | + +------+ + + | Brother | | Alive | | + +------+ + + | Father | | Alive | | + +------+ + + | Father | | | | + +------+ + + | Maternal Grandfather | | | | + +------+ + + | Maternal Grandmother | | | | + +------+ + + | Mother | | Alive | | + +------+ + + | Mother | | | | + +------+ + + | Paternal Grandfather | | | | + +------+ + + | Paternal Grandmother | | Alive | | + +------+ + + | Sister | | Alive | | + +------+ + + | Sister | | Alive | | + +------+ + + | Sister | | Alive | | + +------+ + + Social History + +-------+ +--------+------+ [...] on file | | + + + Last Filed Vital Signs + + + + + | Vital Sign | Reading | Time Taken | Comments | + + + + + | Blood Pressure | 118/68 | 10/17/2019 2:17 PM | | | | | PST | | + + + + + | Pulse | 64 | 10/17/2019 2:17 PM | | | | | PST | | + + + + + | Temperature | 36.6 C (97.9 F) | 10/15/2019 8:00 AM | | | | | PST | | + + + + + | Respiratory Rate | 18 | 10/15/2019 8:00 AM | | | | | PST | | + + + + + | Oxygen Saturation | 100% | 10/17/2019 2:17 PM | | | | | PST | | + + + + + | Inhaled Oxygen | - | - | | | Concentration | | | | + + + + + | Weight | 95.3 kg (210 lb 1.6 | 10/17/2019 2:17 PM | | | | oz) | PST | | + + + + + | Height | 168.1 cm (5' 6.2") | 10/12/2019 1:31 PM | | | | | PST | | + + + + + | Body Mass Index | 33.71 | 10/12/2019 1:31 PM | | | | | PST | | + + + + + Plan of Treatment + + + + + | Health Maintenance | Due Date | Last | Comments | | | | Done | | + + + + + | Hepatitis C | | | | | Screening | 1 | | | + + + + + | Cervical Cancer | | | | | Screening (Pap) | 2 | | | + + + + + | Vaccine: Influenza | | 08/29/20 | | | (#1) | 0 | 19 | | + + + + + | Vaccine: | | 08/29/20 | | | Dtap/Tdap/Td (9 - | | 19, | | | Td) | | 03/13/20 | | | | | 18, | | | | | 11/21/19 | | | | | 14, | | | | | Addition | | | | | al | | | | | history | | | | | exists | | + + + + + Results Not on filefrom Last 3 Months Insurance + +--------+ +--------+ +---------+--------+ | Payer | Benefi | Subscriber | Effect | Phone | Address | Type | | | t Plan | ID | shannan | | | | | | / | | Dates | | | | | | Group | | | | | | + +--------+ +--------+ +---------+--------+ | [place] | MEDICA | [id number] | 10/16/19 | [phone] | | Med[place] | | | [place] | | 19-Pre | 2 | | id | | | PLUS | | sent | | | | + +--------+ +--------+ +---------+--------+ + +--------+ +--------+ + + | Guarantor Name | Accoun | Relation to | Date | Phone | Billing Address | | | t Type | Patient | of | | | | | | | | | | + +--------+ +--------+ + + | Hannah Reddy | Person | Self | [birth year] | [address] [place], | | [place] | al/Fam | | 1989 | [phone] | [place] [address] | | | karen | | | 9 (Home) | | + +--------+ +--------+ + + Advance Directives + + + + + | Type | Date Recorded | Patient | Explanation | | | | Psychological Operations | | + + + + + | Power of | | | | | Assistant Signal Maintainer | | | | + + + + + | Advance | 10/12/2019 | | | | Directive | 2:05 PM | | | + + + + + + + + + + | Code Status | Date | Date | Comments | | | Activated | Inactivated | | + + + + + | Full Code | 10/12/2019 | 10/15/2019 | | | | 8:56 PM | 3:17 PM | | + + + + +
--- OUTSIDE RECORDS SUMMARY | ~2020-06-02 | XMS | Encounter Summary ---
Demographics + + + | Address | [address] | | | [place] [address] | + + + | Home Phone | | + + + | Preferred Language | Unknown | + + + | Marital Status | Single | + + + | Bahai Affiliation | 1041 | + + + | Race | White | + + + | Ethnic Group | Not or | + + + Author + + + | Author | [facility] | | | and Hanyana | + + + | Organization | [facility] | | [...] Team Providers + +------+ + | Care Speech And Language Assistant Name | Role | Phone | + +------+ + | No, Physician | PCP | Unavailable | + +------+ + Encounter Details +--------+ + + + + | Date | Type | Department | Care Team | Description | +--------+ + + + + | 10/17/ | Orders Only | 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
--- OUTSIDE RECORDS SUMMARY | ~2020-06-02 | XMS | Encounter Summary ---
Demographics + + + | Address | [address] | | | [place] [address] | + + + | Home Phone | | + + + | Preferred Language | Unknown | + + + | Marital Status | Single | + + + | Orthodoxy Affiliation | 1041 | + + + | Race | White | + + + | Ethnic Group | Not or | + + + Author + + + | Author | [facility] | | | and Hanyana | + + + | Organization | [facility] | | | and [...] Team Providers + +------+ + | Care Fishing Rod Mechanic Name | Role | Phone | + +------+ + | Unknown, Doctor | PCP | | + +------+ + Encounter Details +--------+ + + + + | Date | Type | Department | Care Team | Description | +--------+ + + + + | 08/27/ | Orders Only | [facility] | Max Anderson PA-C | | | 2017 | | URGENT CARE XRAY | [address] | | | | | [address] | [place] | | | | | [place] | [address] | | | | | [address] | | | | | | [phone] | | | +--------+ + + + [...] | + +--------+ + + + | XR CHEST 2 VIEWS | Routin | 08/27/2018 | | Results for this | | | e | 2:59 PM | | procedure are in the | | | | PST | | results section. | + +--------+ + + + documented in this encounter Results XR Chest 2 Vws (08/27/2018 2:59 PM PST) + + | Specimen | + + | | + + + + + | Impressions | Performed At | + + + | 1. No acute process. | | + + + + + + | Narrative | Performed At | + + + | [facility] X[facility] CHEST 2 VIEW FRONTAL AND LATERAL HISTORY: | | | 28 years. Female. Cough. TECHNIQUE: Frontal and lateral views of | | | the chest were obtained. COMPARISON: 09/02/2017 FINDINGS: | | | The heart is normal in size. No pulmonary vascular congestion. No | | | pneumothorax. No focal airspace disease or pleural effusion. | | + + + + + | Procedure Note | + + | Eliecer, Rad Conversion - 06/06/2019 4:36 PM PDT [facility] CHEST 2 VIEW FRONTAL | | AND LATERAL HISTORY:28 years. Female. Cough. TECHNIQUE:Frontal and lateral views of the | | chest were obtained. COMPARISON:09/02/2017 FINDINGS:The heart is normal in size. No | | pulmonary vascular congestion. No pneumothorax. No focal airspace disease or pleural | | effusion. IMPRESSION: 1. No acute process. | |TECHNIQUE: | |Frontal and lateral views of the chest were obtained. | | | |COMPARISON: | |09/02/2017 | | | |FINDINGS: | |The heart is normal in size. No pulmonary vascular congestion. No pneumothorax. No focal ai rspace disease or pleural effusion. | | | |IMPRESSION: | |1. No acute process. | | | | | + + documented in this encounter Visit Diagnoses Not on filedocumented in this encounter"
--- OUTSIDE RECORDS SUMMARY | ~2020-06-02 | XMS | Encounter Summary ---
Demographics + + + | Address | [address] | | | [place] [address] | + + + | Home Phone | | + + + | Preferred Language | Unknown | + + + | Marital Status | Single | + + + | Sabianism Affiliation | [id number] | + + + | Race | White | + + + | Ethnic Group | Not or | + + + Author + + + | Author | [facility] | | | and [place] | + + + | Organization | [facility] | | [...] Team Providers + +------+ + | Care Parts Identifier Name | Role | Phone | + +------+ + PCP | Unavailable | + +------+ + Encounter Details +--------+ + + + + | Date | Type | Department | Care Team | Description | +--------+ + + + + | 05/13/ | Orders Only | [facility] | Rahul Eli | | | 2019 | | [facility]OC[facility]ATED | Tony ROMERO MD [address] | | | | | [facility] | [address] | | | | | [address] | [place] [address] | | | | | [address], | [phone] | | | | | [place] [address] | | | | | | [phone] | | | +--------+ + + + [...] + + + | Blood Pressure | 112/62 | 05/13/2019 1:53 PM | | | | | PDT | [...] + + + + | Weight | 86.2 kg (190 lb) | 05/13/2019 1:53 PM | | | | | PDT | | + + + + + | Height | - | - | | + + + + + | Body Mass Index | 30.67 | 03/07/2019 11:27 AM | | | | | PDT | | + + + + + documented in this encounter Progress Notes Rahul Eli III, MD - 05/13/2019 1:40 PM PDT Progress Notes by Rahul Eli III, MD at 05/13/19 3272 Author: Rahul Eli III, MD Service: (none) Author Type: Physician Filed: 05/18/19 0630 Encounter Date: 05/13/2019 Status: Signed Anchor Operator: Rahul Eli III, MD (Physician) Records reviewed, scan date 05/13/2019. Operation Report dated 05/14/2018. [id number], Arrest of Dilation. Primary Low Transverse Section Rahul Zhang III, MD - 05/13/2019 1:40 PM PDTFormatting of this note might be differen t from the original. Progress Notes by Rahul Eli III, MD at 05/13/19 1340 Author: Rahul Eli III, MD Service: (none) Author Type: Physician Filed: 05/13/19 5655 Encounter Date: 05/13/2019 Status: Signed Anchor Operator: Rahul Eli III, MD (Physician) I recommended [facility]SA[facility] for ONTD screening. She declines at this time. She would reconsider this after her anatomy ultrasound. Rahul Zhang III, MD - 05/13/2019 1:40 PM PDTFormatting of this note might be differen t from the original. Progress Notes by Rahul Eli III, MD at 05/13/19 8183 Author: Rahul Eli III, MD Service: (none) Author Type: Physician Filed: 05/13/19 8335 Encounter Date: 05/13/2019 Status: Signed Anchor Operator: Rahul Eli III, MD (Physician) 29-year-old P2 [id number] MANUEL of October 28 based from 8-week ultrasound labs reviewed. She is Rh+. Panorama results are low risk, female fetus. Complains of UTI symptoms today, urine dip is negative. Will send urine for culture and tr eat accordingly. First was delivered vaginally. This was followed by her primary section April 2018 secondary to nonreassuring feta l heart tracing. Surgery was done at [facility]. We will request the operation report. She would like a trial o f labor after . We discussed control options. She had never used hormonal control. She is not wanting permanent sterilization. I recommended norethindrone. onvers ion Transaction, Provider Unknown - 05/13/2019 1:40 PM PDT Progress Notes by Kristine Moura MA at 05/13/19 1340 Author: Kristine Moura MA Service: (none) Author Type: Retail Sales Teammate Filed: 05/13/19 1403 Encounter Date: 05/13/2019 Status: Signed Anchor Operator: Kristine Moura MA (Retail Sales Teammate) IWlb TWlb Concerns: Pt thinks she might have a UTI. Reports having urinary frequency. Anatomical US scheduled 06/10/19. docume nted in this encounter Plan of Treatment Not on filedocumented as of this encounter Procedures + +--------+ + + + | Procedure Name | Priori | Date/Time | Associated Diagnosis | Comments | | | ty | | | | + +--------+ + + + | POCT URINALYSIS | Routin | 05/13/2019 | | Results for this | | DIPSTICK | e | 2:08 PM | | procedure are in the | | | | PDT | | results section. | + +--------+ + + + documented in this encounter Results POCT Urinalysis Dipstick Non-Automated (05/13/2019 2:08 PM PDT) + + + + + + | Component | Value | Ref Range | Performed | Pathologist | | | | | At | Signature | + + + + + + | Color, UA, | Yellow | | EXTERNAL | | | POC | | | LAB | | + + + + + + | Clarity, | Clear | | EXTERNAL | | | UA, POC | | | LAB | | + + + + + + | Glucose, | Negative | mg/dl | EXTERNAL | | | UA, POC | | | LAB | | + + + + + + | Bilirubin, | Negative | | EXTERNAL | | | UA, POC | | | LAB | | + + + + + + | Ketones, | Negative | mg/dl | EXTERNAL | | | POC | | | LAB | | + + + + + + | Specific | 1.010 | 1.001 - 1.030 | EXTERNAL | | | [place], | | | LAB | | | UA, POC | | | | | + + + + + + | Blood, UA, | Negative | | EXTERNAL | | | POC | | | LAB | | + + + + + + | pH, UA, POC | 6.5 | 5.0 - 7.5 | EXTERNAL | | | | | | LAB | | + + + + + + | Protein, | Negative | mg/dl | EXTERNAL | | | UA, POC | | | LAB | | + + + + + + | Urobilinoge | 0.2 | 0.2 - 1.0 mg/dl | EXTERNAL | | | n, UA, POC | | | LAB | | + + + + + + | Leukocyte | Negative | | EXTERNAL | | | Esterase, | | | LAB | | | UA, POC | | | | | + + + + + + | Nitrite, | Negative | | EXTERNAL | | | UA, POC | | | LAB | | + + + + + + | Appearance, | | | EXTERNAL | | | Body Fluid | | | LAB | | + [...]
--- OUTSIDE RECORDS SUMMARY | ~2020-06-02 | XMS | Encounter Summary ---
Demographics + + + | Address | [address] | | | [place] [address] | + + + | Home Phone | | + + + | Preferred Language | Unknown | + + + | Marital Status | Single | + + + | Buddhist Affiliation | [id number] | + + + | Race | White | + + + | Ethnic Group | Not or | + + + Author + + + | Author | [facility] | | | and Hanyana | + + + | Organization | [facility] | | | [...] Team Providers + +------+ + | Care Battalion Fire Chief Name | Role | Phone | + +------+ + | No, Physician | PCP | Unavailable | + +------+ + Reason for Visit + + + | Reason | Comments | + + + | Contractions | Started about 3 hours ago consistently; hazel HAMMER DFM, | | | bleeding. | + + + Auth/Cert +--------+--------+ + + + + | Status | Reason | Specialty | Diagnoses / | Referred By | Referred To | | | | | Procedures | Contact | Contact | +--------+--------+ + + + + | | | | Diagnoses | | | | | | | Previous | | | | | | | | | | | | | | delivery, | | | | | | | antepartum | | | | | | | Procedures | | | | | | | NE FULL | | | | | | | CHARBEL REAVES | | | | | | | CARE,CESAREA | | | | | | | N DELIV | | | | | | | REPEAT | | | | | | | | | | | | | | SECTION | | | +--------+--------+ + + + + Encounter Details +--------+---------+ + + + | Date | Type | Department | Care Team | Description | +--------+---------+ + + + | 10/12/ | Surgery | [facility] | Jose Mariseladiane Vazqueza | REPEAT | | 2019 | | [facility] | MD [address]ina [address] | SECTION | | | | [address] DEL[address] | [address] | | | | | [address] | [place] [address] | | | | | [place], [place] | [phone] | | | | | [address] | | | | | | [phone] | | | +--------+---------+ + + + Social History + +-------+ [...] + + + | Blood Pressure | 118/73 | 10/12/2019 9:23 PM | | | | | PST | | + + + + + | Pulse | 74 | 10/12/2019 9:23 PM | | | | | PST | | + + + + + | Temperature | 36.7 C (98 F) | 10/12/2019 8:37 PM | | | | | PST | | + + + + + | Respiratory Rate | 15 | 10/12/2019 8:37 PM | | | | | PST | | + + + + + | Oxygen Saturation | - | - | | + + + + + | Inhaled Oxygen | - | - | | | Concentration | | | | + + + + + | Weight | 98.4 kg (216 lb 14.9 | 10/12/2019 1:31 PM | | | | oz) | PST | | + + + + + | Height | 168.1 cm (5' 6.2") | 10/12/2019 1:31 PM | | | | | PST | | + + + + + | Body Mass Index | 34.8 | 10/12/2019 1:31 PM | | | | | PST | | + + + + + documented in this encounter Discharge Summaries Durga Lozada MD - 10/15/2019 12:43 PM PST [facility] Service: Obstetrics and Gynecology Discharge Summary Date of Admission: 10/12/2019 Date of Discharge: 10/15/2019 Discharge Provider: Durga Lozada MD Attending Provider: Durga Lozada MD BRIEF HISTORY OF PRESENTATION: Hannah Reddy is a 29 y.o. female who presented in labor with history of prio r delivery. HOSPITAL COURSE: Primary OB Provider: Dr. Lozada weight caller OB Clinician: Dr. Lozada CHIEF COMPLAINT: Contractions and lower abdominal pain HISTORY OF PRESENT ILLNESS The patient is a 29 y.o. female with No LMP recorded. Patient is . who pres ents with 37-week 5-day EGA. Patient is known to me from care we have a s ection planned on 21 October. Patient reports significant lower abdominal pain with the cont ractions but the pain comes and goes with contractions. She denies tearing or searing type pain. She has had 1 prior section as well as a prior vaginal delivery. She has op colten for repeat section. She desires to keep fertility options open. Surgery was subsequently carried out. A repeat low transverse section without ext ensions was performed. I will include the operative note below for completeness sake. Post operatively the patient did well with the exception of a significant rash that looked very s imilar to PPUPs however it was in the distribution of the prep and most likely was because of that. We tried topical therapy but subsequently ended up having to use oral steroids bec ause the pruritus was so significant that it did require systemic steroid therapy. She was sent home on a Medrol Dosepak. Past Medical History: Diagnosis Date Kidney stones stones Past Surgical History: Procedure Laterality Date SECTION 05/14/2018 [facility] SECTION N/A 10/12/2019 Procedure: REPEAT SECTION; Surgeon: Marisela Garcia MD; [place] [facility] [place] [facility] CHOLE[facility]STECTOMY 2013 FOOT SURGERY Left 2006 [facility] Allergies Allergen Reactions Keflex [Cephalexin] Hives Penicillins Hives Vancomycin Hives Sumatriptan Other (See Comments) Medications Prior to Admission Medication Sig Dispense Refill [id number]-[id number] 50-325-40 MG CAPS TAKE 1 TO 2 CAPSULES BY MOUTH 4 TIMES D AILY NEEDED FOR UP TO 10 DAYS 0 hydrOXYzine hydrochloride (ATARAX) 25 mg tablet Take 1 tablet by mouth every 6 hours as needed for Itching, Anxiety or Other (pain). 60 tablet 0 Misc. Devices (BREAST PUMP) MISC Dispense 1 electric pump 1 each 0 27-0.8 mg multivitamin tablet Take 1 tablet by mouth daily with breakfast. promethazine (PHENERGAN) 25 mg tablet Take 1 tablet by mouth every 8 hours as needed. 3 0 tablet 0 DISCHARGE EXAM Last Vital Signs: BP 139/83 | Pulse 80 | Temp 36.6 C (97.9 F) (Oral) | Resp 18 | Ht 1.681 m (5' 6.2") | Wt 98.4 kg (216 lb 14.9 oz) | SpO2 99% | Unknown | BM I 34.80 kg/m Physical Exam Physical Exam Constitutional: She is oriented to person, place, and time. She appears well-developed and well-nourished. Pulmonary/Chest: Effort normal. Abdomina/Gl: Soft. Appropriate tenderness for post op status. Incision looks great and is C/D/I.. Fundus firm, not tender, appropriate for stage Genitourinary: Scant non-foul locia Neurological: She is alert and oriented to person, place, and time. Skin: Skin is warm and dry and has a significant papular rash throughout the distribution o f the areas where the prep was utilized. ChloraPrep will be added to her allergies. I woul d encourage only Betadine preps in the future. Psychiatric: Her behavior is normal. Thought content normal. Vitals reviewed. DATA No results found for this or any previous visit (from the past 48 hour(s)). PLAN Disposition: home Condition: Good Code Status: Full Code Discharge Procedure Orders Ambulatory referral to Standing Status: Future Referral Priority: Routine Referral Type: Evaluate & Treat Referral Reason: Specialty Services Required Requested Specialty: Services Number of Visits Requested: 1 Expiration Date: 10/11/20 Follow up: [facility] [address] [facility] [phone] Go on 12/03/2019 as scheduled already [address] Dr[address] Garcia Discharge Medications New Medications Details methylPREDNISolone 4 mg tablet Follow package directions. aka: MEDROL DOSEPAK Unchanged Medications Details UZGUNNDILAMYS-CZNO-HTTBANLVEI 50-325-40 MG Caps TAKE 1 TO 2 CAPSULES BY MOUTH 4 TIMES DAILY NEEDED FOR UP TO 10 DAYS Breast Pump Misc Dispense 1 electric pump hydrOXYzine hydrochloride 25 mg tablet Take 1 tablet by mouth every 6 hours as needed for Itching, Anxiety or Other (pain). aka: ATARAX 27-0.8 mg multivitamin tablet Take 1 tablet by mouth daily with breakfast. promethazine 25 mg tablet Take 1 tablet by mouth every 8 hours as needed. aka: PHENERGAN Discharge took 25 minutes, to include final examination, discussion of admission, and prepa ration of prescriptions, instructions for on-going care, follow-up and documentation of disc harge summary. Durga Lozada MD 10/15/2019 documented in this encounter Discharge Instructions Instructions Elva Khanna RN - 10/15/2019POSTPARTUM DISCHARGE INSTRUCTIONS Warning Signs Check List Notify your clinician immediately if you are experiencing any of the following: Heavy bleeding from the vagina (blood is bright-red and soaks a pad in an hour or less) Normal bleeding decreases in amount over time and is: Bright-red (lasts two to three days). Pinkish or brown (lasts from about the third day to the tenth day). Creamy or yellow (usually lasts one to two weeks). Discharge from the vagina that has a bad odor. Temperature over 100.4 (38 C) or you feel cold and have the chills (you are shiv ering). Urination that is painful, difficult, or too frequent. Difficulty having a bowel movement. Painful, very red, and swollen incision or leaking of any fluids. Breasts that are full and or/painful (swollen, hot, tight, itchy, lumpy, shiny, flat nip ples, or sore spots with flu-like symptoms). Pain that becomes worse and unrelieved by medication. Trouble breathing, dizziness, or faintness. Crying spells or mood swings that feel out of control. Pain, redness, warmth or firmness in the lower calf. Unusual or excessive swelling in your face or hands. Severe or constant headaches. Blurred vision or spots in front of your eyes. Sudden weight gain of more than one pound a day for several days. Persistent pain in the upper right part of your abdomen. Activity/Exercise Do not drive while you are taking narcotics. If you had a section, try driving maneuvers while parked to ensure no increase in incisional pain. Gradually increase your daily activities until you are back to your normal routine. Rest frequently. Remember to continue to drink plenty of fluids and eat frequently if yo u are . Heavy lifting or other strenuous exertion is unlikely to disrupt your incision or lacera tion but it may cause an increase in pain. Your provider will tell you if additional restric tions apply to you. Bowels and Regularity constipation is common; you make take Docusate sodium or Milk of Magnesia to alleviate discomfort Painful bowel movements or rectal pain may result from hemorrhoids; use Tucks and/or top ical treatment like Anusol-HC. Sitz baths can also help. Normal Bleeding Vaginal spotting may last up to six weeks. It is important that you change your pad on a regular basis. Your menstrual period may occur as early as six weeks to two months after your delivery. Care of Stitches You should feel less discomfort every day from your stitches. Perineal stitches will dissolve within 2-4 weeks. You may shower or bathe with stitches; drip plain or soapy water over the incision and d ry gently with a clean towel. If you have serina you may shower (no tub bathing), and dry g ently with a clean towel. If you had any serina that were not removed during your hospitalization they will need to be removed in your provider's office. Steri-strips may fall off on their own or can be removed at post-op visit. Sex/Douching/Tampons Do not place anything in the vagina for the first six weeks after delivery. Your healthcare provider may advise you to wait up to six weeks for intercourse. Once th e bleeding has stopped, it is alright to have intercourse if you feel ready. Keep in mind yo u are at risk of getting . You may find your vagina feels dry, making sex uncomfortable. This can last several hany hs due to changing hormone levels. To help lubricate your vagina, you may purchase a waterso luble lubricant (e.g., Astroglide) from your local drug store. This will help make intercour se more comfortable. SECTION POST OPERATIVE RECOMMENDATIONS, LIMITATIONS, AND EXPECTATIONS Once at home I would like you to not lift more than the weight of the baby and car seat co mbined for the first week After the first week I would still like for you to avoid lifting more than 20 pounds until at least 6 weeks after surgery if you can avoid doing that If you do have to lift more than 20 pounds then try and use the best body mechanics you can and to minimize the times that you need to do exertional activity or lift more than 20 poun ds. Another way of looking at activity restrictions is to practice what I call "SMART ACTIVITY" and means that I want you to, "Be Smart and avoid doing strenuous activity " As a general rule I would like you to avoid the following as much as possible for the first 6 weeks after surgery: significant repetitive bending, straining, squatting or lifting vigorous activity, exercise sex I understand that there will be circumstances where you may need to deviate from these qing mmendations, but please do try to follow them as a general rule. It is likely that you will be able to drive by the end of the second first week and almost certainly by the end of the third week as long as you are able to move your foot safely from gas to brake, turn to check your blind spots quickly and pain-free, and of course be off a ll narcotics. You will likely have some spotting, and maybe even bleeding, that may occur up to 3 months after surgery. It should not require more than a light panty liner however. PAIN MANAGEMENT STRATEGY Please use ibuprofen as instructed on the bottle for the first 3 days after surgery whether it is needed or not. Then use the ibuprofen as needed to maintain pain relief as instructed on the bottle. If the ibuprofen does not meet your pain management needs, please continue taking the ibupr ofen and add Tylenol/acetaminophen. These 2 medications are different from each other and work in different ways. Tylenol and ibuprofen can be used at the same time. Use them both a s directed on the bottles. You may purchase theTylenol/acetaminophen at your pharmacy without a prescription. . If you still need even more pain relief, then continue taking the ibuprofen and acetaminoph en/Tylenol as directed, and add the oxycodone or tramadol as well. I want you to continue t o take the ibuprofen and acetaminophen because even if they do not provide enough pain relie f, they are doing something to help with pain relief however you may simply require the wanda tional medication. If this does not provide adequate pain management then please contact e office documented in this encounter Medications at Time of Discharge + + + +---------+ + + | Medication | Sig | Dispensed | Refills | Start | End Date | | | | | | Date | | + + + +---------+ + + | | TAKE 1 TO 2 CAPSULES | | 0 | 08/20/20 | | | [id number] | BY MOUTH 4 TIMES | | [...] + + documented as of this encounter Progress Notes Elva Khanna RN - 10/15/2019 10:09 AM PSTRash to abdomen, around incision and pubic re gion is reddened, raised and warm to the touch. None of the raised bumps are open at this t shivani though some appear to be close to opening. Bumps are more raised on lower abdomen around th incision area and onto pubic region. Entire rash remains itchy. Hyun Edwards MD - 10/15/2019 5:53 AM PST [facility] Service: Obstetrics Physician Progress Note Hannah Reddy - 10/15/2019 APW analytical scientist for stay: Dr. Lozada Brief Summary: Hannah Reddy is a 29 y.o.-year-old who presented on 10/12/2019 with contr actions. She delivered on 10/12/19 via delivery. Indication for delivery w as prior section. See delivery note for details. Complications of labor and deliver y include: none. Since delivery the patient has developed an urticarial rash on her abdomen extending to the mons pubis. This is believed to be secondary to C/S prep. Subjective She is post- day 3 status post repeat delivery. She feels okay overall. She complains of the rash on her abdomen. She has received benadryl, hydrocortisone cream, and k enalog cream. She believes the benadryl has helped to improve the itchiness a lot and thinks it looks a little less red compared to yesterday. She continues to experience incisional pain, requiring multiple doses of oral oxycodone thr oughout the day. She is passing flatus and is tolerating a diet. She is ambulating. Lochia normal. She denie s fevers, chills, headaches, shortness of breath, chest pain. Also denies: headache, blurry vision, visual changes, right upper quadrant pain, shoulder p ain, sudden weight gain, low back pain. Objective BP 130/82 | Pulse 84 | Temp 36.7 C (98 F) (Oral) | Resp 16 | Ht 1.681 m (5' 6.2") | Wt 98.4 kg (216 lb 14.9 oz) | SpO2 99% | Unknown | BMI 34.80 kg/m I/O last 3 completed shifts: In: 750 [P.O.:750] Out: 2350 [Urine:2350] Physical Exam General: no apparent distress HEENT: normocephalic atraumatic Neck: supple, no lymphadenopathy Cardiac: regular rate and rhythm Chest/Pulmonary: bilateral breath sounds Abdominal: Soft, appropriately tender to palpation, nondistended. Fundus firm and near leve l of umbilicus. Pfannenstiel incision is intact. Serous, non-purulent fluid observed to be d raining from incision site onto peripad. Urticarial rash present, but feels less warm to tavares ch and appears less erythematous. Extremities: moves all extremities equally. Trace nonpitting lower extremity edema Skin: warm and well-perfused Neurological: nonfocal. Normal reflexes Back: nontender. No deformities Lab Results Component Value Date WBC 16.78 (H) 10/13/2019 HGB 11.4 10/13/2019 HCT 33.4 (L) 10/13/2019 MCV 88.5 10/13/2019 PLT 222 10/13/2019 Principal Problem: Delivered by delivery following previous delivery Active Problems: Previous delivery, antepartum Onset (spontaneous) of labor after 37 completed weeks of gestation but before 39 complete d weeks gestation, with delivery by (planned) section Delivery outcome of single liveborn Urticaria A&P 1. 29 y.o.-year-old female, post- day 3 status post repeat delivery for prev ious C/S. She is doing well. - Encourage ambulation as tolerated - General diet - Pain control with scheduled acetaminophen and ibuprofen. Oxycodone as needed - Incentive spirometer 10x/hour for pulmonary toilet - Continue current routine care - Appreciate help of nursing staff 2. Urticaria Likely secondary to cleanser. Patient continues to be afebrile and does not have purulent d rainage. The rash's improvement following benadryl administration is reassuring. - Continue to monitor drainage and incision site today - Continue kenalog cream - Continue Benadryl, PO, Q6H PRN - Continue hydrocortisone cream PRN The preceding was discussed with Durga Lozada MD who agreed with the assessment and p isidro. Hyun Freeman MD Resident Physician [facility] [place], [place] 10/15/2019 5:53 AM Associated attestation - Durga Lozada MD - 10/22/2019 8:18 AM PSTAttending attestat vidal, I agree with the note below and have been directly supervising the PGY-1 Family Medicin e Resident during care of this patient Baldemar Watts RN - 10/15/2019 4:21 AM PSTRN noted incision was very moist, so RN instru cted patient to keep jennifer pad at incision at all times. Patient currently afebrile. Educated patient on s/sx of infection and told her to notify nurse if symptoms occur. Baldemar Watts RN Hyun Edwards MD - 10/14/2019 5:58 PM PST [facility] Service: Obstetrics Physician Progress Note Hannah Reddy - 10/14/2019 APW analytical scientist for stay: Dr. Lozada Brief Summary: Hannah Reddy is a 29 y.o.-year-old who presented on 10/12/2019 with contr actions. She delivered on 10/12/19 via delivery. Indication for delivery w as prior section. See delivery note for details. Complications of labor and deliver y include none. Subjective She is post- day 2 status post delivery. She feels okay overall. She complai ns of incisional pain and an itchy rash around incision and abdomen. She is concerned that t here is an infection because she had cellulitis following her previous C/S. This is thought to be secondary to cleanser used for C/S. Nursing has started to apply kenalog cream, but do es not believe it has improved so far.She is passing flatus and is tolerating a diet. She is ambulating. Lochia normal. She denies fevers, chills, headaches, shortness of breath, chest pain. Also denies: headache, blurry vision, visual changes, right upper quadrant pain, shoulder p ain, sudden weight gain, anxiety, low back pain. Objective BP 127/88 | Pulse 85 | Temp 36.3 C (97.4 F) (Oral) | Resp 20 | Ht 1.681 m (5' 6.2") | Wt 98.4 kg (216 lb 14.9 oz) | SpO2 100% | Unknown | BMI 34.80 kg/m I/O last 3 completed shifts: In: 2600 [I.V.:2600] Out: 7650 [Urine:7050; Blood:600] Physical Exam General: no apparent distress HEENT: normocephalic atraumatic Neck: supple, no lymphadenopathy Cardiac: regular rate and rhythm Chest/Pulmonary: bilateral breath sounds Abdominal: Soft, appropriately tender to palpation, nondistended. Fundus firm and near leve l of umbilicus. Pfannenstiel is clean, dry, and intact. No drainage observed. The mons pubis is covered by an urticarial rash that extends to the upper 2/3's of the abdomen. The rash i s erythematous with wheals and slightly warm to palpation. It is poorly demarcated and appea rs worse in areas compressed by underwear and sleeping pajamas. Extremities: moves all extremities equally. Trace nonpitting lower extremity edema Skin: warm and well-perfused Neurological: nonfocal. Normal reflexes Back: nontender. No deformities Lab Results Component Value Date WBC 16.78 (H) 10/13/2019 HGB 11.4 10/13/2019 HCT 33.4 (L) 10/13/2019 MCV 88.5 10/13/2019 PLT 222 10/13/2019 Principal Problem: Delivered by delivery following previous delivery Active Problems: Previous delivery, antepartum Onset (spontaneous) of labor after 37 completed weeks of gestation but before 39 complete d weeks gestation, with delivery by (planned) section Delivery outcome of single liveborn Urticaria A&P 1. 29 y.o.-year-old female, post- day 2 status post repeat delivery for prev ious C/S. She is doing well. - Encourage ambulation as tolerated - General diet - Pain control with scheduled acetaminophen and ibuprofen. Oxycodone as needed - Incentive spirometer 10x/hour for pulmonary toilet - Continue current routine care - Consider discharge tomorrow - Appreciate help of nursing staff 2. Urticaria Likely secondary to cleanser used in C/S. DDx included cellulitis and abscess, which are le ss likely in an afebrile patient without induration or purulent drainage. Patient reassured and encouraged to wear less tight fitting clothing. - Continue topical kenalog - Reevaluate in AM The preceding was discussed with Durga Lozada MD who agreed with the assessment and p isidro. Hyun Freeman MD Resident Physician [facility] [place], [place] 10/14/2019 5:58 PM Associated attestation - Durga Lozada MD - 10/22/2019 8:19 AM PSTAttending attestat vidal, I agree with the note below and have been directly supervising the PGY-1 Family Medicin e Resident during care of this patient Donna Marshall RN - 10/13/2019 11:15 PM PSTPt has apparent reaction to iodine from CS. Notified Dr. Paige and he ordered 25-50 mg Benadryl and 0.1% Kenalog creme. Gloria ctronically signed by Donna Marshall RN at 10/13/2019 11:17 PM Ashanti Souza MD - 10/13/2019 9:45 AM PSTFormatting of this note might be different from the origi nal. Pt was seen by me in the am of 10/13/19 As I left after my call shift ended Vs reviewed , pt interviewed and evaluated Doing well with good pain management at that time Plan to reeval in am 10/14 I spoke with rn that am and pt needing to work on pain control issues Plan was to eval later RN tells me pain management still and issue so will have pgy 1 see pt and will anticipate p ossible discharge tomorrow; Lab Results Component Value Date WBC 16.78 (H) 10/13/2019 HCT 33.4 (L) 10/13/2019 MCV 88.5 10/13/2019 LABPLAT 223 03/19/2019 PLT 222 10/13/2019 haz Mello DO - 10/13/2019 2:33 AM PST [facility] Service: Obstetrics Physician Progress Note Hannah Reddy - 10/13/2019 APW analytical scientist for stay: Dr. Lozada Brief Summary: Hannah Reddy is a 29 y.o.-year-old who presented on 10/12/2019 with contr actions. She delivered on 10/12/19 via delivery. Indication for delivery w as repeat . See delivery note for details. Complications of labor and delivery incl ude: none. Subjective She is post- day 1 status post delivery. She feels good overall. She compla ins of incisional pain. She is passing flatus and is tolerating a diet. She ambulating. Loch ia normal. She denies fevers, chills, headaches, shortness of breath, chest pain. Also denies: headache, blurry vision, visual changes, right upper quadrant pain, shoulder p ain, sudden weight gain, anxiety, low back pain. Scheduled Meds: acetaminophen 1,000 mg Oral 3 times per day ferrous sulfate 325 mg Oral Daily with breakfast ketorolac 30 mg Intravenous 4 times per day Followed by [START ON 10/14/2019] ibuprofen 600 mg Oral 3 times per day 27-0.8 mg multivitamin 1 tablet Oral Daily rho(D) immune globulin 300 mcg Intramuscular One Time Vaccine Continuous Infusions: oxytocin 350 connie-units/min (10/12/192037) PRN Meds:.aluminum & magnesium hydroxide-simethicone, calcium carbonate, carboprost, diphen hydrAMINE, docusate sodium, ePHEDrine, fentaNYL (PF), fentaNYL (PF), HYDROmorphone, labetalo l, lanolin, loperamide, meperidine, methylergonovine, miSOPROStol OR miSOPROStol, nalbup pravin, naloxone, ondansetron, ondansetron, oxytocin, oxytocin, promethazine, simethicone, tra nexamic acid Objective BP 116/61 | Pulse 68 | Temp 36.4 C (97.6 F) (Axillary) | Resp 14 | Ht 1.681 m (5' 6 .2") | Wt 98.4 kg (216 lb 14.9 oz) | Unknown | BMI 34.80 kg/m I/O last 3 completed shifts: In: 2600 [I.V.:2600] Out: 5300 [Urine:4700; Blood:600] Physical Exam General: no apparent distress HEENT: normocephalic atraumatic Neck: supple, no lymphadenopathy Cardiac: regular rate and rhythm Chest/Pulmonary: bilateral breath sounds Abdominal: Soft, appropriately tender to palpation, nondistended. Fundus firm and below lev el of umbilicus. Incision clean, dry and free of discharge and bleeding Extremities: moves all extremities equally. Trace nonpitting lower extremity edema Skin: warm and well-perfused Neurological: nonfocal. Normal reflexes Back: nontender. No deformities Lab Results Component Value Date WBC 16.78 (H) 10/13/2019 HGB 11.4 10/13/2019 HCT 33.4 (L) 10/13/2019 MCV 88.5 10/13/2019 PLT 222 10/13/2019 Principal Problem: Previous delivery, antepartum Active Problems: Onset (spontaneous) of labor after 37 completed weeks of gestation but before 39 complete d weeks gestation, with delivery by (planned) section A&P 1. 29 y.o.-year-old female, post- day 1 status post . She is doing well. - Encourage ambulation as tolerated - General diet - Pain control with scheduled acetaminophen and ibuprofen. Oxycodone as needed - Incentive spirometer 10x/hour for pulmonary toilet - Continue current routine care - Appreciate help of nursing staff The preceding was discussed with Durga Lozada MD who agreed with the assessment and p isidro. Chaz Mello DO Resident Physician [facility] [place], [place] 10/13/2019 7:59 AM Associated attestation - Durga Lozada MD - 10/13/2019 11:17 AM PSTAttending attestat vidal I agree with the note below and have been directly supervising the PGY-1 Family Medicin e Resident during care of this patient documented in this encounter H&P Notes Durga Lozada MD - 10/12/2019 6:52 PM PST [facility] Service: Obstetrics & Gynecology Admission and History Note Subjective: Primary OB Provider: Dr. Lozada weight caller OB Clinician: Dr. Lozada CHIEF COMPLAINT: Contractions and lower abdominal pain HISTORY OF PRESENT ILLNESS The patient is a 29 y.o. female with No LMP recorded. Patient is . who pres ents with 37-week 5-day EGA. Patient is known to me from care we have a s ection planned on 21 October. Patient reports significant lower abdominal pain with the cont ractions but the pain comes and goes with contractions. She denies tearing or searing type pain. She has had 1 prior section as well as a prior vaginal delivery. She has op colten for repeat section. She desires to keep fertility options open. Symptom description: Location of pain/issue: Lower abdomen and pelvic region Quality of issue describes as contractions and sharp pain during the contraction. Severity of pain: moderate in nature Duration of symptoms: Started this morning and has been persistent throughout the day despi te IV hydration and morphine here in labor and delivery Timing/frequency of issue: Contractions occurring every 5 minutes or more frequently. Context of pain: This was a spontaneous series of contractions Modifying factors: None and not relieved with subcutaneous morphine Other associated signs and symptoms besides the chief complaint: Reports her fetus is a ctive, denies vaginal bleeding or ruptured membranes REVIEW OF SYSTEMS ROS obtained from patient. Overall Neg except as per the HPI CONSTITUTIONAL: negative EYES: negative for Blurry vistion or scotomata HEENT: negative for earaches and sore throat RESPIRATORY: negative for cough, or breathing problems CARDIOVASCULAR: negative for chest pain, palpitations GASTROINTESTINAL: negative for nausea, vomiting GENITOURINARY: negative for dysuria, hematuria and genital lesions and vaginal discharge INTEGUMENT/BREAST: rash and skin lesion(s) HEMATOLOGIC/LYMPHATIC: negative for bruising and lymphadenopathy ENDOCRINE: negative for heat intolerance, cold intolerance MUSCULOSKELETAL: negative for myalgias and arthralgias NEUROLOGICAL: negative for headaches, dizziness, seizures, coordination problems, gait pro blems and pain BEHAVIOR/PSYCH: negative for agitated and anxiety OB History Para Term AB Living 3 2 2 0 0 2 SAB TAB Ectopic Molar Multiple Live Births 0 0 0 0 0 2 # Outcome Date GA Lbr Sanchez/2nd Weight Sex Delivery Anes PTL Lv 3 Current 2 Term 05/14/18 39w0d 3.374 kg (7 lb 7 oz) M CS-Unspec Spinal N DEMETRIUS Comments: umbilical cord was wrapped around the neck and shoulder Name: Asif Gannon Term 08/19/10 41w0d 3.685 kg (8 lb 2 oz) M Vag-Spont EPI N DEMETRIUS Name: Kameron Past Medical History: Diagnosis Date Kidney stones stones Past Surgical History: Procedure Laterality Date SECTION 05/14/2018 [facility] CHOLECYSTECTOMY 2013 FOOT SURGERY Left 2006 [facility] Allergies Allergen Reactions Keflex [Cephalexin] Hives Penicillins Hives Vancomycin Hives Sumatriptan Other (See Comments) Medications Prior to Admission Medication Sig Dispense Refill BOMDGLIEQUNUR-[id number] 50-325-40 MG CAPS TAKE 1 TO 2 CAPSULES BY MOUTH 4 TIMES D AILY NEEDED FOR UP TO 10 DAYS 0 hydrOXYzine hydrochloride (ATARAX) 25 mg tablet Take 1 tablet by mouth every 6 hours as needed for Itching, Anxiety or Other (pain). 60 tablet 0 Misc. Devices (BREAST PUMP) MISC Dispense 1 electric pump 1 each 0 27-0.8 mg multivitamin tablet Take 1 tablet by mouth daily with breakfast. promethazine (PHENERGAN) 25 mg tablet Take 1 tablet by mouth every 8 hours as needed. 3 0 tablet 0 Family History Problem Relation Age of Onset Multiple sclerosis Mother Diabetes, NIDDM Father Breast cancer Neg Hx Uterine cancer Neg Hx Diabetes, IDDM Neg Hx Heart defect Neg Hx Heart disease Neg Hx Social History Tobacco Use Smoking Status Former Smoker Packs/day: 0.25 Social History Substance and Sexual Activity Alcohol Use Not on file Comment: Alcoholic Drinks/day: occasional Social History Substance and Sexual Activity Drug Use Not on file Comment: Drug use: No Spouse/partner name Kameron Beasley Objective: BP 131/84 | Pulse 81 | Ht 1.681 m (5' 6.2") | Wt 98.4 kg (216 lb 14.9 oz) | BMI 34.80 kg/m General: alert, appears stated age and cooperative Skin: warm and dry, no rash noted Head and Neck Without apparent abnormality, no LAD , thyroid not enlarged Lungs: clear to auscultation bilaterally Heart: regular rate and rhythm Back No CVAT Abdomen: Gravid, soft, non-tender FHT: category 1 / Pelvis: Cervix is 2+ centimeters dilated, soft cervix, rather posterior, -4 station, ballotable Uterine Size: appropriate for gestational age Presentation: vertex Extremities: Neurologic exam: Not tender, calves soft Grossly intact, normal gait, no deficit noted Lab Review CBC: Lab Results Component Value Date WBC 10.61 07/31/2019 RBC 4.16 07/31/2019 RBC 4.82 03/19/2019 HGB 12.8 07/31/2019 HGB 16.7 (A) 07/08/2017 HCT 37.6 07/31/2019 MCV 90.2 07/31/2019 MCH 30.6 07/31/2019 MCHC 34.0 07/31/2019 PLT 231 07/31/2019 MPV 8.4 07/31/2019 DIFFTYPE AUTOMATED 07/31/2019 Platelets: Lab Results Component Value Date PLT 231 07/31/2019 CMP: Lab Results Component Value Date NA 141 09/22/2017 K 3.9 09/22/2017 CL 110 (H) 09/22/2017 CO2 24 09/22/2017 ANIONGAP 11 09/22/2017 GLUF 82 08/02/2019 BUN 9 09/22/2017 GLOB 3.2 09/22/2017 AGRATIO 1.2 09/22/2017 BILITOT 0.2 09/22/2017 AST 16 09/22/2017 ALT 29 09/22/2017 EGFR >60 09/22/2017 Hepatic Function Panel: Lab Results Component Value Date BILITOT 0.2 09/22/2017 AST 16 09/22/2017 ALT 29 09/22/2017 GTT: @breiflab(gtt)@ HgBA1c: No results found for: LABGLYC TSH: No results found for: TSH ABO Rh Date Value Ref Range Status 03/19/2019 o positive Final , No results found for: LABANTI, Hematocrit Date Value Ref Range Status 07/31/2019 37.6 34.0 - 46.0 % Final , Hemoglobin, POC Date Value Ref Range Status 07/08/2017 16.7 (A) 11.3 - 15.5 g/dL Final Comment: abnormal results verified by repeat anaylsis Hemoglobin Date Value Ref Range Status 07/31/2019 12.8 11.3 - 15.5 g/dL Final , No components found for: HEPBSAG, No components found for: TREP, Rubella IgG Ab, Screen Date Value Ref Range Status 03/19/2019 137.6 [iU]/mL Final Comment: Susceptible: <5.0 Indeterminate: 5 to 10 Immune: >10 , No components found for: HIV1X2, No results found for: GLUTP PROBLEM LIST Principal Problem: Previous delivery, antepartum ASSESSMENT & PLAN This does not appear to be advancing labor however with the severity of the patient 's pain and discomfort the concern is for potential scar separation. I discussed w ith her options of expectant management and continued in-house observation versus proceeding with delivery. Risks and benefits of both of those were discussed. Patient would like to proceed with delivery at this time and I think that is a very reasonable option. A lthough I do not clinically believe that she has a uterine separation the risks and benefits of gambling against that and being wrong is certainly not worth that effort at this stage o f the . She understands that even though she is at 37 weeks and 5 days EGA and it is a female fetus, certain issues such as breathing difficulties currently could occur and a ffect the fetus as well as its course. Risks and benefits to the patient regardin g delivery were discussed. Appropriate consents explained and signed and she accep colten meyer as I deem necessary. This document has been prepared with a voice recognition system. The possibility of "sound alike" lab asst errors, addition and/or deletions may occur. If there is any question p lease contact the author of the document. documented in this encounter Miscellaneous Notes Note - Radha Laguerre RN - 10/15/2019 10:45 AM PSTPt states baby is latching b jodi and milk is coming in, she has a pump and is continuing the feeding plan. PPC 10/16.Elec tronically signed by Radha Laguerre RN at 10/15/2019 11:42 AM PSTPlan of Care - Hyacinth Khanna RN - 10/15/2019 9:50 AM PST Problem: Adult Inpatient Plan of Care Goal: Plan of Care Review Outcome: Ongoing, progressing Plan of care for the day reviewed. No further needs at this time. lan of Care - Baldemar Watts RN - 10/14/2019 9:43 PM PST Problem: Pain ( Vaginal Delivery) Goal: Acceptable Pain Control Outcome: Ongoing, progressing Pain managed with oxycodone. actation Note - Deanna Benson RN - 10/14/2019 11:07 AM PSTVisited with pt about breast feeding, pumping and returning for a clinic appt along with repeat bili check. Set up appt and discussed the joao efit of pumping after feeds to help maintain good milk supply since baby was born 2 weeks ea rly and may have issues with milk transfer. Pt very interested in return for clinic and has a pump at home. lan [facility] - Gege Geller RN - 10/14/2019 8:56 AM PST Problem: Adult Inpatient Plan of Care Goal: Plan of Care Review Outcome: Ongoing, progressing Goal: Patient-Specific Goal Outcome: Ongoing, progressing Goal: Absence of Hospital-Acquired Illness or Injury Outcome: Ongoing, progressing Goal: Optimal Comfort and Wellbeing Outcome: Ongoing, progressing Goal: Readiness for Transition of Care Outcome: Ongoing, progressing Goal: Rounds/Family Conference Outcome: Ongoing, progressing Problem: Bleeding ( Delivery) Goal: Bleeding is Controlled Outcome: Ongoing, progressing Problem: Adjustment to Role Transition ( Delivery) Goal: Successful Maternal Role Transition Outcome: Ongoing, progressing Problem: Postoperative Nausea and Vomiting ( Delivery) Goal: Nausea and Vomiting Relief Outcome: Ongoing, progressing Plan of care reviewed TPlan [facility] - Donna Marshall RN - 10/14/2019 12:22 AM PST Problem: Adult Inpatient Plan of Care Goal: Optimal Comfort and Wellbeing Outcome: Ongoing, progressing Problem: Bleeding ( Delivery) Goal: Bleeding is Controlled Outcome: Ongoing, progressing Problem: Adjustment to Role Transition ( Delivery) Goal: Successful Maternal Role Transition Outcome: Ongoing, progressing Pt vs stable, pain is being managed with oxycodone, pt showered and abd removed, bleeding is light, attentive to infant needs, will continue to monitor. nesthesia Pain Management - Micaela Aguirre CRNA - 10/13/2019 9:15 PM PSTFormatting of this note might be different from the o riginal. Patient is status post section 1 Day Post-Op. Patient with no current complaints. Tolerating food by mouth, no current nausea or vomiting, patient ambulating without any dif ficulty and denies symptoms of a post dural puncture headache. Patient states good pain con trol with current pain regimen. Patient states return of normal sensory and motor function of extremities. doing well. Vital signs: BP 128/78 | Pulse 86 | Temp 36.7 C (98.1 F) (Oral) | Resp 18 | Ht 1.68 1 m (5' 6.2") | Wt 98.4 kg (216 lb 14.9 oz) | SpO2 97% | Unknown | BMI 34. 80 kg/m Temp: 36.7 C (98.1 F) Pulse: 86 Resp: 18 BP: 128/78 SpO2:97 % Recent Labs Lab 10/13/19 0518 10/12/19 1835 WBC 16.78* 11.51* RBC 3.77 4.22 HGB 11.4 12.8 HCT 33.4* 37.2 MCV 88.5 88.0 MCH 30.2 30.3 MCHC 34.1 34.4 PLT 222 234 MPV 8.2 8.2 VSS, NAD, return of motor and sensory function with no observed weakness or sensory deficit s. Assesment/Plan: 1. Patient doing well post op. 2. Resolution of spinal morphine appropriate. 3. No complications noted. 4. No additional follow up needed. Vitals: 10/13/19 0224 10/13/19 0800 10/13/19 1400 10/13/19 1933 BP: 116/61 121/68 117/65 128/78 Pulse: 68 70 78 86 Resp: 14 18 16 18 Temp: 36.4 C (97.6 F) 36.6 C (97.9 F) 36.9 C (98.4 F) 36.7 C (98.1 F) TempSrc: Axillary Axillary Axillary Oral SpO2: 97% Weight: Height: actation Note - Rekha Iglesias RN - 10/13/2019 7:30 PM PSTExperienced mother stated she breast fed he r 10 yr old for one month and her 18 month old for 4 months until she had to return to work. Her has been sleepy today but has still be eating every 2 - 3 hours. She has also supplemented her with formula afterwards. She had her latched in the cradle position . Reviewed correct latch techniques and helped with a deeper more comfortable latch. Her [facility] office is in [place]. 7: 30 PM PSTPlan of Care - Hannah Gary RN - 10/12/2019 9:46 PM PSTRN reviewed plan of care with patient, patient stated understanding. No questions at this time. p Note - Durga Lozada MD - 10/12/2019 8:57 PM PSTPREOP DIAGNOSIS: Prior section, desires fertility options to reain open, Early labor , abdominal pain over scar area POST OP DX: Same PROCEDURE: Repeat low transverse section without extensions SURGEON: Durga Lozada M.D. REGIONAL MARKETING DIRECTOR: Dr. Chaz Mello PGY-1 ANESTHESIOLOGY PROVIDER:Narciso Guzman CRNA ANESTHETIC TYPE: spinal with duamorph EBL: 600 ml FINDINGS: viable female infant, clear fluid, apgars 9 and 9. Normal placenta and 3 VC , Normal uterus, ovaries and fallopian tubes, lower segment normal thickness, Normal appen janae noted Patient was taken to the room identified and anesthesia was administered. A timeout was hel d appropriate consents were verified and confirmed. She had been prepped and draped in usual manner and Nuñez catheter was draining clear urine. Pfannenstiel incision was made through the old scar. Subcutaneous tissue divided and fascia identified. Fascia was incised and extended cephalad and laterally. Fascia was dissected off the rectus muscle. Midline was identified and and the peritoneal cavity entered sharply. The incision was extended then a self-retaining Michael O. Retractor was placed. Once deploy ed the inner ring was inspected and failed to reveal any evidence of entrapped bowel or omen donovan. A bladder flap was created. A hysterotomy was performed and extended by finger fractionation. Clear fluid was noted. head was flexed and delivered through the hysterotomy with gentle fundal pressure. Nuchal cord was noted and reduced. Suctioning was carried out on the abdomen and again after delivery of the remainder of the body. The cord was doubly clamped and divided after allowing approximately 45-60 seconds for expa nsion of lungs and pulmonary vascular system to open up The infant was handed off to the waiting pediatric team for evaluation. Cord gases were not indicated. An aliquot of blood was obtained. The placenta was delivered spontaneously, intact, and the three-vessel cord was noted. A cord segment was obtained per protocol. The uterus remained in situ, was curetted with a dry lap sponge, and then the hysterotomy w as reapproximated with a 0 Monocryl suture in a locking stitch and then an imbricating stitc h. The uterus tubes and ovaries were then inspected and the external surface was noted to be n ormal. The appendix was inspected and appeared to be normal. Counts were noted to be correct after irrigation was carried out and the gutters were noted to be clean and dry. The retractor was then removed. Peritoneum was closed with 2-0 Vicryl in a running stitch and then the muscle then was reap proximated with interrupted stitches of 2-0 Vicryl as well. Fascia was closed across a dry muscle bed with a 0 PDS x2 in a running stitch which met in the midline. Subcutaneous tissue was copiously irrigated, small bleeders rendered hemostatic with the Alex vie, 2-0 plain gut was used to reapproximate the subcutaneous tissue. The skin was then closed with 4-0 Vicryl in a subcuticular manner. Benzoin and Steri-Strips were then applied. A dressing was placed and the vagina was then expressed of residual blood and clot. Patient was transferred to her bed and taken to her room for recovery in excellent conditio n. lan of Care - Mayra Mayo RN - 10/12/2019 6:37 PM PSTFundal checks per order documented in this encounter Plan of Treatment + + +--------+ + + | Name | Type | Priori | Associated Diagnoses | Order Schedule | | | | ty | | | + + +--------+ + + | Ambulatory referral | Outpatient | Routin | Previous | 1 Occurrences | | to | Referral | e | delivery, antepartum | starting 10/15/2019 | | | | | | until 10/11/2020 | + + +--------+ + + documented as of this encounter Procedures + +--------+ + + + | Procedure Name | Priori | Date/Time | Associated Diagnosis | Comments | | | ty | | | | + +--------+ + + + | CBC NO DIFFERENTIAL | Routin | 10/13/2019 | | Results for this | | | e | 5:18 AM | | procedure are in the | | | | PST | | results section. | + +--------+ + + + | REPEAT | | 10/12/2019 | Previous | | | SECTION | | 7:04 PM | delivery, antepartum | | | | | PST | | | + +--------+ + + + | CBC NO DIFFERENTIAL | STAT | 10/12/2019 | | Results for this | | | | 6:35 PM | | procedure are in the | | | | PST | | results section. | + +--------+ + + + | TYPE AND SCREEN | STAT | 10/12/2019 | | Results for this | | | | 6:35 PM | | procedure are in the | | | | PST | | results section. | + +--------+ + + + documented in this encounter Results CBC no Differential (10/13/2019 5:18 AM PST) + + + + + + | Component | Value | Ref Range | Performed | Pathologist | | | | | At | Signature | + + + + + + | WBC | 16.78 (H) | 3.80 - 11.00 | [facility] | | | | | K/uL | LABORATORY | | + + + + + + | Red Blood | 3.77 | 3.70 - 5.10 | [facility] | | | Cells | | M/uL | LABORATORY | | + + + + + + | Hemoglobin | 11.4 | 11.3 - 15.5 | [facility] | | | | | g/dL | LABORATORY | | + + + + + + | Hematocrit | 33.4 (L) | 34.0 - 46.0 % | [facility] | | | | | | LABORATORY | | + + + + + + | MCV | 88.5 | 80.0 - 100.0 fl | [facility] | | | | | | LABORATORY | | + + + + + + | MCH | 30.2 | 27.0 - 34.0 pg | [facility] | | | | | | LABORATORY | | + + + + + + | MCHC | 34.1 | 32.0 - 35.5 | [facility] | | | | | g/dL | LABORATORY | | + + + + + + | RDW-SD | 42.4 | 37 - 53 fl | [facility] | | | | | | LABORATORY | | + + + + + + | Platelet | 222 | 150 - 400 K/uL | [facility] | | | Count | | | LABORATORY | | + + + + + + | MPV | 8.2Comment: Testing | fl | [facility] | | | | performed at [facility], [address] | | LABORATORY | | | | [address] [place], | | | | | | [place] [address] | | | | + + + + + + + + | Specimen | + + | Blood | + + + + + + + | Performing | Address | City/State/Zipcode | Phone Number | | Organization | | | | + + + + + | [facility] | [address] | [place] [address] | [phone] | + + + + + CBC no Differential (10/12/2019 6:35 PM PST) + + + + + + | Component | Value | Ref Range | Performed | Pathologist | | | | | At | Signature | + + + + + + | WBC | 11.51 (H) | 3.80 - 11.00 | [facility] | | | | | K/uL | LABORATORY | | + + + + + + | Red Blood | 4.22 | 3.70 - 5.10 | [facility] | | | Cells | | M/uL | LABORATORY | | + + + + + + | Hemoglobin | 12.8 | 11.3 - 15.5 | [facility] | | | | | g/dL | LABORATORY | | + + + + + + | Hematocrit | 37.2 | 34.0 - 46.0 % | [facility] | | | | | | LABORATORY | | + + + + + + | MCV | 88.0 | 80.0 - 100.0 fl | [facility] | | | | | | LABORATORY | | + + + + + + | MCH | 30.3 | 27.0 - 34.0 pg | [facility] | | | | | | LABORATORY | | + + + + + + | MCHC | 34.4 | 32.0 - 35.5 | [facility] | | | | | g/dL | LABORATORY | | + + + + + + | RDW-SD | 42.4 | 37 - 53 fl | [facility] | | | | | | LABORATORY | | + + + + + + | Platelet | 234 | 150 - 400 K/uL | [facility] | | | Count | | | LABORATORY | | + + + + + + | MPV | 8.2Comment: Testing | fl | [facility] | | | | performed at [facility] [place] | | LABORATORY | | | | [address];[place] | | | | | | [id number] | | | | + + + + + + + + | Specimen | + + | Blood | + + + + + + + | Performing | Address | City/State/Zipcode | Phone Number | | Organization | | | | + + + + + | [facility] | [address] | [place] [address] | [phone] | + + + + + Type and Screen (10/12/2019 6:35 PM PST) + + + + + + | Component | Value | Ref Range | Performed | Pathologist | | | | | At | Signature | + + + + + + | ABO Rh | O POSITIVE | | [facility] | | | | | | LABORATORY | | + + + + + + | Antibody | NEGATIVE | | [facility] | | | Screen | | | LABORATORY | | + + + + + + | BB BAND | [address] | | [facility] | | | | | | LABORATORY | | + + + + + + | BB BAND | Testing performed at | | [facility] | | | | [facility];[address] | LABORATORY | | | | [address];[place] [address] | | | | + + + + + + + + | Specimen | + + | Blood | + + + + + + + | Performing | Address | City/State/Zipcode | Phone Number | | Organization | | | | + + + + + | [facility] | [address] | [place] [address] | [phone] | + + + + + documented in this encounter Visit Diagnoses + + | Diagnosis | + + | Previous delivery, antepartum | + + documented in this encounter Admitting Diagnoses + + | Diagnosis | + + | Previous delivery, antepartum | + + documented in this encounter Administered Medications + +--------+ + +------+------+ | Medication Order | MAR | Action | Dose | Rate | Site | | | Action | Date | | | | + +--------+ + +------+------+ | acetaminophen (TYLENOL) tablet | Given | 10/15/20 | 1,000 mg | | | | 1,000 mg 1,000 mg, Oral, 3 TIMES | | 19 12:10 | | | | | DAILY, First dose (after last | | PM PST | | | | | modification) on 10/13/19 at | | | | | | | 2000, Start 8 hours after pre-op | | | | | | | dose., | | | | | | + +--------+ + +------+------+ +-------+ + +---+---+ | Given | 10/15/20 | 1,000 mg | | | | | 19 4:12 | | | | | | AM PST | | | | +-------+ + +---+---+ | Given | 10/14/20 | 1,000 mg | | | | | 19 8:01 | | | | | | PM PST | | | | +-------+ + +---+---+ + +---+ | | | + +---+ | benzocaine 20%-menthol | | | (DERMOPLAST) topical spray | | | Topical, EVERY 6 HOURS PRN, Pain, | | | Starting 10/15/19 at 0440, | | | Apply to: Abdomen-LLQ, | | | Abdomen-LUQ, Abdomen-RLQ, | | | Abdomen-RUQ, Groin-Left, | | | Groin-Right | | + +---+ | | | + +---+ + +-------+ +-------+---+---+ | diphenhydrAMINE (BENADRYL) | Given | 10/15/20 | 25 mg | | | | capsule 25 mg 25 mg, Oral, EVERY | | 19 10:07 | | | | | 6 HOURS PRN, Itching, Starting | | AM PST | | | | | 10/13/19 at 2312 | | | | | | + +-------+ +-------+---+---+ +-------+ +-------+---+---+ | Given | 10/15/20 | 25 mg | | | | | 19 4:12 | | | | | | AM PST | | | | +-------+ +-------+---+---+ | Given | 10/14/20 | 25 mg | | | | | 19 2:21 | | | | | | PM PST | | | | +-------+ +-------+---+---+ +---+---+ | | | +---+---+ + +-------+ +--------+---+---+ | docusate sodium (COLACE) | Given | 10/15/20 | 100 mg | | | | capsule 100 mg 100 mg, Oral, 2 | | 19 8:18 | | | | | TIMES DAILY, First dose on Sun | | AM PST | | | | | 10/13/19 at 1130, 1st line agent | | | | | | | for constipation relief., | | | | | | + +-------+ +--------+---+---+ +-------+ +--------+---+---+ | Given | 10/14/20 | 100 mg | | | | | 19 8:02 | | | | | | PM PST | | | | +-------+ +--------+---+---+ | Given | 10/14/20 | 100 mg | | | | | 19 8:36 | | | | | | AM PST | | | | +-------+ +--------+---+---+ +---+---+ | | | +---+---+ + +-------+ +--------+---+---+ | ferrous sulfate tablet 325 mg | Given | 10/15/20 | 325 mg | | | | 325 mg, Oral, DAILY WITH | | 19 8:17 | | | | | BREAKFAST, First dose on Sun | | AM PST | | | | | 10/13/19 at 0800, | | | | | | + +-------+ +--------+---+---+ +-------+ +--------+---+---+ | Given | 10/14/20 | 325 mg | | | | | 19 8:36 | | | | | | AM PST | | | | +-------+ +--------+---+---+ | Given | 10/13/20 | 325 mg | | | | | 19 8:07 | | | | | | AM PST | | | | +-------+ +--------+---+---+ +---+---+ | | | +---+---+ + +-------+ +---+---+---+ | hydrocortisone 1% cream | Given | 10/15/20 | | | | | Topical, PRN, Rash, itching, | | 19 10:08 | | | | | Starting 10/15/19 at 0455, | | AM PST | | | | | Apply to: Abdomen-LLQ, | | | | | | | Abdomen-LUQ, Abdomen-RLQ, | | | | | | | Abdomen-RUQ | | | | | | + +-------+ +---+---+---+ +-------+ +---+---+---+ | Given | 10/15/20 | | | | | | 19 5:31 | | | | | | AM PST | | | | +-------+ +---+---+---+ +---+---+ | | | +---+---+ + +-------+ +------+---+---+ | HYDROmorphone (DILAUDID) | Given | 10/12/20 | 1 mg | | | | injection 0.25-1 mg 0.25-1 mg, | | 19 10:36 | | | | | Intravenous, EVERY 2 HOURS PRN, | | PM PST | | | | | Pain, Starting 10/12/19 at | | | | | | | 2056, If oral route not an | | | | | | | option. Slow IV push, not faster | | | | | | | than 0.3mg/minute. First dose | | | | | | | must be lowest dose, titrate to | | | | | | | effective dose by repeat of | | | | | | | lowest dose every 30 minutes prn | | | | | | | pain, may not exceed maximum dose | | | | | | | ordered per interval. Use Pasero | | | | | | | Sedation Scale., Post-op/Phase | | | | | | | II | | | | | | + +-------+ +------+---+---+ +---+---+ | | | +---+---+ + +-------+ +--------+---+---+ | ibuprofen (ADVIL,MOTRIN) tablet | Given | 10/15/20 | 600 mg | | | | 600 mg 600 mg, Oral, 3 TIMES | | 19 12:10 | | | | | DAILY, First dose (after last | | PM PST | | | | | modification) on 10/13/19 at | | | | | | | 2000, Give with food., | | | | | | + +-------+ +--------+---+---+ +-------+ +--------+---+---+ | Given | 10/15/20 | 600 mg | | | | | 19 4:12 | | | | | | AM PST | | | | +-------+ +--------+---+---+ | Given | 10/14/20 | 600 mg | | | | | 19 8:02 | | | | | | PM PST | | | | +-------+ +--------+---+---+ + +---+ | | | + +---+ | miSOPROStol (CYTOTEC) tablet | | | 600 mcg 600 mcg, Oral, PRN, | | | Post- hemorrhage, Starting | | | 10/12/19 at 2055, For 1 dose, | | | If general anesthesia give per | | | rectum. May give only after | | | delivery., | | + +---+ | | | + +---+ | miSOPROStol (CYTOTEC) tablet | | | 800 mcg 800 mcg, Rectal, PRN, | | | Post- hemorrhage, Starting | | | 10/12/19 at 2055, For 1 dose, | | | If unable to administer orally. | | | May give only after delivery., | | | | | + +---+ | | | + +---+ + +-------+ +------+---+---+ | oxyCODONE (ROXICODONE) tablet | Given | 10/15/20 | 5 mg | | | | 5-10 mg 5-10 mg, Oral, EVERY 4 | | 19 12:10 | | | | | HOURS PRN, Pain, Starting Sun | | PM PST | | | | | 10/13/19 at 1042, First dose must | | | | | | | be the lowest dose, can titrate | | | | | | | to effective dose by repeat of | | | | | | | lowest dose every 60 minutes prn | | | | | | | pain, may not exceed maximum dose | | | | | | | ordered per interval. Use Pasero | | | | | | | Sedation Scale., Post-op/Phase | | | | | | | II | | | | | | + +-------+ +------+---+---+ +-------+ +-------+---+---+ | Given | 10/15/20 | 10 mg | | | | | 19 8:18 | | | | | | AM PST | | | | +-------+ +-------+---+---+ | Given | 10/15/20 | 10 mg | | | | | 19 4:12 | | | | | | AM PST | | | | +-------+ +-------+---+---+ +---+---+ | | | +---+---+ + +-------+ + +---+---+ | 27-0.8 mg multivitamin | Given | 10/15/20 | 1 tablet | | | | 1 tablet 1 tablet, Oral, DAILY, | | 19 8:18 | | | | | First dose on 10/13/19 at | | AM PST | | | | | 0900, | | | | | | + +-------+ + +---+---+ +-------+ + +---+---+ | Given | 10/14/20 | 1 tablet | | | | | 19 8:36 | | | | | | AM PST | | | | +-------+ + +---+---+ | Given | 10/13/20 | 1 tablet | | | | | 19 8:28 | | | | | | PM PST | | | | +-------+ + +---+---+ +---+---+ | | | +---+---+ + +-------+ +-------+---+---+ | simethicone (MYLICON) chewable | Given | 10/13/20 | 80 mg | | | | tablet 80 mg 80 mg, Oral, 4 | | 19 7:32 | | | | | TIMES DAILY Suad AYALA for | | PM PST | | | | | indigestion, dyspepsia, Starting | | | | | | | 10/12/19 at 6, | | | | | | + +-------+ +-------+---+---+ +-------+ +-------+---+---+ | Given | 10/13/20 | 80 mg | | | | | 19 1:31 | | | | | | PM PST | | | | +-------+ +-------+---+---+ | Given | 10/13/20 | 80 mg | | | | | 19 8:07 | | | | | | AM PST | | | | +-------+ +-------+---+---+ +---+---+ | | | +---+---+ + +-------+ +---+---+---+ | triamcinolone (KENALOG) 0.1% | Given | 10/15/20 | | | | | cream Topical, 2 TIMES DAILY, | | 19 8:18 | | | | | First dose on 10/13/19 at | | AM PST | | | | | 2330, Apply to: Abdomen-LLQ, | | | | | | | Arm-Left Upper | | | | | | + +-------+ +---+---+---+ +-------+ +---+---+ + | Given | 10/14/20 | | | | | | 19 8:03 | | | | | | PM PST | | | | +-------+ +---+---+ + | Given | 10/14/20 | | | Abdomen- | | | 19 8:37 | | | LLQ | | | AM PST | | | | +-------+ +---+---+ + +---+---+ | | | +---+---+ documented in this encounter
--- OUTSIDE RECORDS SUMMARY | ~2020-06-02 | XMS | Encounter Summary ---
Demographics + + + | Address | [address] | | | [place] [address] | + + + | Home Phone | | + + + | Preferred Language | Unknown | + + + | Marital Status | Single | + + + | Taoist Affiliation | [id number] | + + + | Race | White | + + + | Ethnic Group | Not or | + + + Author + + + | Author | [facility] | | | and Hanyana | + + + | Organization | [facility] | | [...] Team Providers + +------+ + | Care Patient Day Coordinator Name | Role | Phone | + [...] | +--------+ + + + + | 08/05/ | Routine | [facility] | Rahul Eli | GA: 280d | | 2019 | | ASSOCIATED | Tony ROMERO MD [address] | | | | | [facility] | [address] | | | | | [address] | [place] [address] | | | | | [address] [facility] [phone] | | | | | [place] [address] | | | | | | [phone] | Marisela Garcia | | | | | | MD Melina [address] | | | | | | [address] | | | | | | [place] [address] | | | | | | [phone] | | | | | | | [...] + + + | Blood Pressure | 112/72 | 08/05/2019 11:13 AM | | | | | PDT [...] + + + + | Weight | 94.8 kg (209 lb) | 08/05/2019 11:13 AM | | | | | PDT | | + + + + + | Height | - | - | | + + + + + | Body Mass Index | 33.73 | 03/07/2019 11:27 AM | | | | | PDT | | + + + + + documented in this encounter Patient Instructions Patient Instructions Valerie Thorne, Nuclear Waste Process Operator - 08/05/2019 10:40 AM PDTYou loulou n receive the Tdap and Flu vaccine at any Health Department in [place] or your pharmacy. Kick Counts It s normal to worry about your baby s health. One way you can knowyour baby s doin g well is to record the baby s movements once a day. This is called a kick count.Alleye r to take your kick count records to all your appointments with your healthcare provider. How to count kicks Here are tips for counting kicks: Choose a time when the baby is active, such as after a meal. Sit comfortably or lie on your side. The first time the baby moves,write downthe time. Count each movement until the baby has [id number]. This can take from 20 minutes t o 2hours. Try to do it at the same time each day. When to call your healthcare provider Call your healthcare providerright awayif you notice any of the following: Your baby moves fewer than 10times [id number] while you re doing kick counts. Your baby moves much less often than on thedays before. You have not felt your baby move all day. Date Last Reviewed: 09/15/[id number] [employer]. [address] [place] [address], [place] [address]. All righ ts reserved. This information is not intended as a substitute for professional medical care. Always follow your healthcare professional's instructions. documented in this encounter Progress Notes Marisela Garcia MD - 08/05/2019 10:40 AM PDTPt denies any contractions, leaking, bleeding. Good movements. USG done - Anatomy complete wnl. Growth 95%tile LGA GTT wnl Normal symptoms of 3rd trimester discussed. PTL precautions. Discussed HAMM- Esgic prn Nausea- Promethazine prn PIH precaution We discussed breast feeding And breast pump We discussed contraception options - TL Assistant Counsel decided - [facility] Flu / TDAP Discussed- To [place] [facility] Continue DFMR Will get USG for growth at 37w Would like to Last was 8lbs 4 oz. Then C section for distress- discussed i f LGA- higher Chances of having another c section Will decide after EFW check at 37w SIGN And TUBAL STERILIZATION forms next time F/U 2w Valerie Jackson, Nuclear Waste Process Operator - 08/05/2019 10:40 AM [id number] 28w0d BP 112/72 | Wt 94.8 kg (209 lb) | BMI 33.73 kg/m TW.2 kg (29 lb) IWlb Concerns: 1.) Daily migraines, taking tylenol without relief. Went to the ED due to migraine that [place] 3 days and was given [place] that helped. 2.) Pain in the top of her belly - has some mild heartburn. 3.) Jerson samuel contractions. [facility] instruction sheet added to AVS. Rhogam: not indicated Tdap: planned - Referred to HD due to [place] insurance. 28w labs have been completed. do cumented in this encounter Plan of Treatment Not on filedocumented as of this encounter Results US OB Limited 1 or More Fetus (09/30/2019 9:48 AM PST) + + | Specimen | + + | | + + + + + | Narrative | Performed At | + + + | Indication | [facility] | | ========= Evaluation of growth Method ====== Transabdominal | | | ultrasound examination ========= [place] . | | | Number of fetuses: 1. Dating ====== | | | Date | | | Details | | | | | | Gest. age MANUEL External | | | assessment | | | | | | | | | 36 w + 0 d 10/28/2019 | | | U/S 09/30/2019 | | | based upon AC, BPD, Femur, HC | | | 38 w + 0 | | | d 10/14/2019 Assigned dating | | | Dating performed on 09/30/2019, based on the external | | | assessment 36 w | | | + 0 d 10/28/2019 General Evaluation | | | Cardiac activity present. FHR 142 bpm. Presentation | | | cephalic. Placenta anterior. Amniotic fluid MVP 4.5 cm. ABDIRIZAK 13.7 cm. | | | Q1 2.9 cm, Q2 3.5 cm, Q3 4.5 cm, Q4 2.8 cm. Biometry | | | Main Biometry: BPD | | | 92.6 mm | | | 37w 4d 92% | | | Hadlock OFD | | | 117.9 mm | | | -/- | | | 75% Nicolaides HC | | | 335.7 mm | | | 38w 3d | | | 78% Hadlock AC | | | 352.2 mm | | | 39w 1d | | | >99% Hadlock Femur | | | 72.3 mm | | | 37w 0d 72% | | | Hadlock HC / AC | | | 0.95 | | | -/- | | | 10% Smith Weight Calculation: EFW | | | 3,482 | | | g 39w 2d | | | 96% Hadlock EFW | | | (lb,oz) 7 lb 11 | | | oz EFW by | | | Hadlock ([id number]) Head / Face / Neck Biometry: Cephalic | | | index 0.79 | | | | | | 45% Chitty | | | Extremities / Bony Struc Biometry: FL / BPD | | | 0.78 | | | -/- | | | Hadlock FL / HC | | | 0.22 | | | -/- | | | Hadlock FL / | | | AC 0.21 | | | 17w 4d | | | Hadlock | | | Other Structures Biometry: AF MVP | | | 4.5 cm | | | | | | ABDIRIZAK | | | 13.7 cm | | | | | | FHR | | | 142 | | | bpm Impression ========= | | | Measurements are large for dates. The four quadrant ABDIRIZAK is cm | | | (normal).. The patient received thermal prints. Recommendation | | | BPD/HC is not an accurate due to position of the head | | | lying very low in the pelvis. LGA fetus discuss today Electronically | | | signed by: Marisela Garcia MD on 09/30/2019 at 10:04 | | | | | | | | + + + + + | Procedure Note | + + | Eliecer, Rad Results In - 09/30/2019 10:04 AM PST Indication ========= Evaluation of | | growth Method ====== Transabdominal ultrasound examination ========= | | [place] . Number of fetuses: 1. Dating ====== | | Date Details | | Gest. age MANUEL | | External assessment | | 36 w + 0 d | | 10/28/2019 U/S 09/30/2019 | | based upon AC, BPD, Femur, HC | | 38 w + 0 d 10/14/2019 Assigned dating Dating | | performed on 09/30/2019, based on the external assessment | | 36 w + 0 d 10/28/2019 General Evaluation | | Cardiac activity present. FHR 142 bpm. Presentation cephalic. Placenta anterior. | | Amniotic fluid MVP 4.5 cm. ABDIRIZAK 13.7 cm. Q1 2.9 cm, Q2 3.5 cm, Q3 4.5 cm, Q4 2.8 cm. | | Biometry Main Biometry: BPD | | 92.6 mm 37w 4d 92% | | Hadlock OFD 117.9 mm | | -/- 75% Nicolaides HC | | 335.7 mm | | 38w 3d 78% Hadlock AC | | 352.2 mm 39w 1d | | >99% Hadlock Femur 72.3 | | mm 37w 0d 72% Hadlock | | HC / AC 0.95 | | -/- 10% Smith Weight | | Calculation: EFW 3,482 g | | 39w 2d 96% Hadlock EFW (lb,oz) | | 7 lb 11 oz EFW by | | Hadlock ([id number]) Head / Face / Neck Biometry: Cephalic index | | 0.79 | | 45% Chitty Extremities / Bony Struc Biometry: FL / BPD | | 0.78 -/- | | Hadlock FL / HC | | 0.22 -/- | | Hadlock FL / AC 0.21 | | 17w 4d | | Hadlock Other Structures Biometry: AF MVP 4.5 | | cm | | ABDIRIZAK 13.7 cm | | FHR | | 142 bpm Impression | | ========= Measurements are large for dates. The four quadrant ABDIRIZAK is cm (normal).. | | The patient received thermal prints. Recommendation BPD/HC is not an | | accurate due to position of the head lying very low in the pelvis. LGA fetus discuss | | today | |EFW 3,482 g 3 9w 2d 96% Hadlock | |EFW (lb,oz) 7 lb 11 oz | |EFW by Hadlock ([id number]) | |Head / Face / Neck Biometry: | |Cephalic index 0.79 45% Chitty | |Extremities / Bony Struc Biometry: | |FL / BPD 0.78 -/- Hadlock | |FL / HC 0.22 -/- Hadlock | |FL / AC 0.21 17w 4d Hadlock | |Other Structures Biometry: | |AF MVP 4.5 cm | |ABDIRIZAK 13.7 cm | |FHR 142 bpm | | | |Impression | |========= | | | |Measurements are large for dates. The four quadrant ABDIRIZAK is cm (normal).. The patient rec eived thermal prints. | | | |Recommendation | | | | | |BPD/HC is not an accurate due to position of the head lying very low in the pelvis. | |LGA fetus | |discuss today | | | | | | | + + + +---------+ + + | Performing | Address | City/State/Zipcode | Phone Number | | Organization | | | | + +---------+ + + | [facility] | | | | + +---------+ + + documented in this encounter Visit Diagnoses + + | Diagnosis | + + | Short interval between pregnancies affecting , antepartum - Primary | + + | Excessive growth affecting management of in third trimester, single or | | unspecified fetus | + + | Desires (vaginal after ) trial Previous delivery, | | unspecified as to episode of care or not applicable | + + documented in this encounter"
--- OUTSIDE RECORDS SUMMARY | ~2020-06-02 | XMS | Encounter Summary ---
Demographics + + + | Address | [address] | | | [place] [address] | + + + | Home Phone | | + + + | Preferred Language | Unknown | + + + | Marital Status | Single | + + + | Hinduism Affiliation | 1041 | + + + | Race | White | + + + | Ethnic Group | Not or | + + + Author + + + | Author | [facility] | | | and [place]anyana | + + + | Organization | [facility] | | | and [...] Team Providers + +------+ + | Care Pump House Technician Name | Role | Phone | + +------+ + | No, Physician | PCP | Unavailable | + +------+ + Reason for Visit Auth/Cert +--------+--------+ + + + + | [...] | | | | | | | DE FULL | | | | | | | ROUT OBSTE | | | | | | | CARE,CESAREA | | | | | | | N DELIV | | | | | | | REPEAT | | | | | | | | | | | | | | SECTION | | | +--------+--------+ + + + + Encounter Details +--------+ + + + + | Date | Type | Department | Care Team | Description | +--------+ + + + + | 10/12/ | Anesthesia | [facility] | Narciso Guzman, | | | 2019 | Event | [facility] | LOT ATTENDANT [address] | | | | | [address] | [place] [address] | | | | | [address] | [phone] | | | | | [place], [place] | | | | | | [address] | | | | | | [phone] | | | +--------+ + + + + Anesthesia Record + + + + + | Procedure Name | Responsible | Anesthesia Start | Anesthesia Stop Time | | | Anesthesiologist | Time | | + + + + + | REPEAT | Narciso Guzman CRNA | 10/[birth year]/191923 | 10/12/192040 | | SECTION (N/A | | | | | Abdomen) | | | | + + + + + +----+---+ + + | Da | T | Event | Comment | | te | i | | | | | m | | | | | e | | | +----+---+ + + | 12 | 1 | An Start | Reassessment prior to anesthesia induction/procedure. | | /2 | 9 | | | | 8/ | 2 | | | | 20 | 4 | | | | 19 | | | | +----+---+ + + | | 1 | Quick Note | Clindamycin given immediately preop by SHAN. No further abx needed | | | 9 | | per Dr Lozada | | | 2 | | | | | 4 | | | +----+---+ + + | | 1 | Anesthesia | | | | 9 | Ready | | | | 2 | | | | | 9 | | | +----+---+ + + | | 1 | Quick Note | Skin incision without sensation | | | 9 | | | | | 4 | | | | | 5 | | | +----+---+ + + | | 1 | First | | | | 9 | Inc/Proc St | | | | 4 | | | | | 5 | | | +----+---+ + + | | 1 | Quick Note | Uterine incision | | | 9 | | | | | 5 | | | | | 2 | | | +----+---+ + + | | 1 | Baby Deliv | | | | 9 | | | | | 5 | | | | | 3 | | | +----+---+ + + | | 1 | Quick Note | Placenta in utero; uterine tone adequate per Dr Lozada | | | 9 | | | | | 5 | | | | | 4 | | | +----+---+ + + | | 1 | Quick Note | Placenta in utero; uterine tone adequate per Dr Lozada | | | 9 | | | | | 5 | | | | | 5 | | | +----+---+ + + | | 1 | Quick Note | Placenta in utero; uterine tone adequate per Dr Lozada | | | 9 | | | | | 5 | | | | | 6 | | | +----+---+ + + | | 1 | Quick Note | Placenta expelled; uterine tone adequate per Dr Lozada | | | 9 | | | | | 5 | | | | | 7 | | | +----+---+ + + | | 1 | Quick Note | Major blood loss controlled | | | 9 | | | | | 5 | | | | | 8 | | | +----+---+ + + | | 2 | an stop | | | | 0 | data | | | | 3 | | | | | 4 | | | +----+---+ + + | | 2 | Quick Note | Depart OR | | | 0 | | | | | 3 | | | | | 4 | | | +----+---+ + + | | 2 | An Stop | Patient handed off to recovery nurse. | | | 4 | | | | | 1 | | | +----+---+ + + +------+ | Meds | +------+ + + + | Name | Total | + + + | morphine (Intrathecal) | 200 mcg | + + + | fentaNYL (PF) 50 mcg/mL | 10 mcg | | (intrathecal) | | + + + | bupivacaine 0.75%-dextrose 8.25% | 13 mg | | (MARCAINE SPINAL) | | + + + | oxytocin in IV Bag | 20 Units | + + + | ondansetron | 4 mg | + + + | dexamethasone | 8 mg | + + + | ketorolac | 30 mg | + + + | LR (Infusion) | 2,600 mL | + + + + + | Name | + + | N2O Flow Rate (L/Min) | + + | O2 Flow Rate (L/Min) | + + | Insp O2 | + + | Exp N2O | + + | Air Flow Rate (L/Min) | + + | Secondary O2 Flow Rate | + + + + | No blood administrations on file. | + + +--------+ + + + | Type | Details | Placement | Removal | +--------+ + + + | Wound | 10/12/19; 1910; Incision; | 10/12/191910 by | | | | Bilateral; abdomen | Hannah Nicolas, | | | | | RN | | +--------+ + + + | Periph | 10/12/19; 1834; Right; Posterior | 10/12/191834 by | 10/14/19650 by | | shakira | (dorsal); Forearm; 18 gauge; | Karina Hobbs RN | Donna De La Torre | | IV | Blood Bank, Hematology; 0; | | SHAN Marshall | | | distraction; 10/14/19; 650 | | | +--------+ + + + | Urethr | 10/12/19; 1944; indicated due to | 10/12/191944 by | 10/13/19 1400 by Sharon | | al | specific surgical procedure; All | Hannah Nicolas, | Imani Larry RN | | Cathet | elements; All elements; All | RN | | | er | elements; indwelling single lumen | | | | | catheter; latex; 16; None; 1; | | | | | 10; 10; none; distraction; leg | | | | | bag to dependent drainage; | | | | | 10/13/19; 1400 | | | +--------+ + + + documented in this encounter Social History + +-------+ +--------+------+ | Tobacco [...] + + documented as of this encounter OR Notes Anesthesia Postprocedure Evaluation - Narciso Guzman CRNA - 10/12/2019 9:42 PM PSTFormatt ing of this note might be different from the original. ANESTHESIA POSTANESTHESIA EVALUATION Hannah Reddy 29 y.o. female 1990 [id number] Procedure(s) REPEAT SECTION (N/A Abdomen) Cooperates? Yes Mental Status Performs simple tasks. Respiratory Satisfactory - Airway patent (self maintained). Cardiovascular Satisfactory - Blood pressure and heart rate acceptable Temperature Satisfactory Pain Satisfactory N/V Control Satisfactory Hydration Satisfactory - No signs of dehydration Adverse Events ADVERSE EVENTS: No adverse events Vitals Value Taken Time Temp 36.7 C (98 F) 10/12/2019 8:37 PM Pulse 75 10/12/2019 9:10 PM Resp 15 10/12/2019 8:37 PM BP 118/72 10/12/2019 9:10 PM Arterial Line BP Arterial Line BP 2 SpO2 Electronically signed by Narciso Guzman CRNA 10/12/2019 9:42 PM [facility] CRNA at 9 9:42 PM PSTAnesthesia Procedure Notes - Narciso Guzman CRNA - 10/12/2019 7:35 PM PSTAss ociated Order(s): NeuraxialNeuraxial Procedure Note 10/12/2019 7:27 PM Procedure: single-shot spinal anesthesia Indication: surgical anesthesia Preprocedure check: patient identified, procedure and rescue equipment checked, preevaluati on including airway assessment complete, risks/benefits discussed, consent obtained, timeout performed, reassessment prior to procedure and monitors applied Patient position: sitting Preparation: chlorhexidine/isopropyl alcohol, Introducer used: yes Procedure level: L2-3 Approach: midline Needle: pencil-point Needle size: 25 g Negative findings: no paresthesia and no blood aspirated Positive findings: CSF aspirated Attempts: 1 Ease of procedure: easy Performing provider: Narciso Guzman CRNA Authorizing provider: Narciso Guzman CRNA Please see anesthesia record or flowsheet for vital sign documentation and see anesthesia r ecord or MAR for additional medication documentation. nesthesia Preproced ure Evaluation - Narciso Guzman CRNA - 10/12/2019 6:35 PM PST ANESTHESIA PREANESTHESIA EVALUATION Hannah Reddy 29 y.o. female 1990 [id number] Procedure(s): REPEAT SECTION (N/A Abdomen) Medical,anesthesia, drug, allergy histories reviewed, NPO status verified. Labs reviewed. Review of Systems / Med History Anesthesia History No anesthesia complications except where noted below. Cardiovascular Negative except where noted below. . Pulmonary Negative except where noted below. Gastrointestinal/Hepatic Negative except where noted below. Renal Negative except where noted below. Hematology/Other Negative except where noted below. Neuromuscular Negative except where noted below. Physical Exam Airway MP II, Mouth opening >2 FB. Neck: full ROM, CV Rhythm regular. Rate Normal. Pulm Clear to auscultation bilaterally. Neuro grossly normal. Anesthesia Plan ASA: 2E Type: Spinal. Induction: Local anesthesia. Potential problems: None anticipated. Monitors: Standard ASA monitors. Postop Pain Management: Consent statement: Consenting person understands and agrees to proceed. GA backup. Electronically Signed by: Narciso Guzman CRNA ESig date/time: 10/12/2019 6:35 PM documented in this e ncounter Miscellaneous Notes Addendum Note - Narciso Guzman CRNA - 12/02/2019 9:15 AM PST Addendum created 12/02/19 0915 by Narciso Guzman CRNA Intraprocedure Meds edited nesthesia Post-op Handoff - Narciso Guzman CRNA - 10/12/2019 8:41 PM PSTFormatting of this note might be dif ferent from the original. ANESTHESIA HANDOFF NOTE Hannah Reddy 29 y.o. female 1990 [id number] REPEAT SECTION (N/A Abdomen) HANDOFF NOTE Handoff Protocol Used: post-procedure handoff checklist completed The following were completed during the transfer of care: 1. Identification of patient 2. Identification of responsible practitioner (primary service) 3. Discussion of pertinent medical history 4. Discussion of the surgical/procedure course (procedure, reason for surgery, procedure pe rformed) 5. Intraoperative anesthetic management and issues/concerns 6. Expectations/plans for the early post-procedure period 7. Opportunity for questions and acknowledgement of understanding of report from receiving team Patient Location: Floor Condition: awake, alert and oriented Airway/O2: no supplemental O2 Multimodal analgesia: multimodal analgesia used between 6 hours prior to anesthesia start t o PACU discharge The significant anesthesia concerns and VS in Epic were reviewed with the receiving team. Narciso Guzman CRNA 10/12/2019 9:42 PM [facility] Narciso Guzman CRNA at 9 9:42 PM PSTdocumented in this encounter Plan of Treatment Not on filedocumented as of this encounter Procedures + +--------+ + + + | Procedure Name | Priori | Date/Time | Associated Diagnosis | Comments | | | ty | | | | + +--------+ + + + | ANE EPIDURAL NOTE | Routin | 10/12/2019 | | Results for this | | | e | 7:35 PM | | procedure are in the | | | | PST | | results section. | + +--------+ + + + documented in this encounter Results Neuraxial (10/12/2019 7:35 PM PST) + + + | Narrative | Performed At | + + + | Narciso Guzman CRNA 10/12/2019 7:36 PM Neuraxial Procedure | | | Note 10/12/2019 7:27 PM Procedure: single-shot spinal anesthesia | | | Indication: surgical anesthesia Preprocedure check: patient | | | identified, procedure and rescue equipment checked, preevaluation | | | including airway assessment complete, risks/benefits discussed, | | | consent obtained, timeout performed, reassessment prior to procedure | | | and monitors applied Patient position: sitting Preparation: | | | chlorhexidine/isopropyl alcohol, Introducer used: yes Procedure | | | level: L2-3 Approach: midline Needle: pencil-point Needle size: 25 | | | g Negative findings: no paresthesia and no blood aspirated Positive | | | findings: CSF aspirated Attempts: 1 Ease of procedure: easy | | | Performing provider: Narciso Guzman CRNA Authorizing provider: Narciso Tapia | Willie Guzman CRNA Please see anesthesia record or flowsheet | | | for vital sign documentation and see anesthesia record or MAR for | | | additional medication documentation. | | + + + documented in this encounter Visit Diagnoses Not on filedocumented in this encounter Administered Medications + +--------+ +-------+------+------+ | Medication Order | MAR | Action | Dose | Rate | Site | | | Action | Date | | | | + +--------+ +-------+------+------+ | bupivacaine 0.75%-dextrose | Given | 10/12/20 | 13 mg | | | | 8.25% (MARCAINE SPINAL) injection | | 19 7:29 | | | | | PRN, Starting 10/12/19 at | | PM PST | | | | | 1929, Anesthesia Intra-op | | | | | | + +--------+ +-------+------+------+ +---+---+ | | | +---+---+ + +-------+ +------+---+---+ | dexamethasone (DECADRON) 4 | Given | 10/12/20 | 8 mg | | | | mg/mL injection Intravenous, | | 19 7:54 | | | | | PRN, Starting 10/12/19 at | | PM PST | | | | | 1954, Anesthesia Intra-op | | | | | | + +-------+ +------+---+---+ +---+---+ | | | +---+---+ + +-------+ +--------+---+---+ | fentaNYL (PF) injection | Given | 10/12/20 | 10 mcg | | | | INTRATHECAL, PRN, Starting Sat | | 19 7:29 | | | | | 10/12/19 at 1928, Anesthesia | | PM PST | | | | | Intra-op | | | | | | + +-------+ +--------+---+---+ +---+---+ | | | +---+---+ + +-------+ +-------+---+---+ | ketorolac (TORADOL) injection | Given | 10/12/20 | 30 mg | | | | Intravenous, PRN, Starting Sat | | 19 8:27 | | | | | 10/12/19 at 2026, Anesthesia | | PM PST | | | | | Intra-op | | | | | | + +-------+ +-------+---+---+ +---+---+ | | | +---+---+ + +---------+ +---+---+---+ | lactated ringers (LR) infusion | New Bag | 10/12/20 | | | | | Intravenous, CONTINUOUS PRN, | | 19 7:43 | | | | | Starting 10/12/19 at 1924, | | PM PST | | | | | Anesthesia Intra-op | | | | | | + +---------+ +---+---+---+ +---------+ +---+---+---+ | New Bag | 10/12/20 | | | | | | 19 7:34 | | | | | | PM PST | | | | +---------+ +---+---+---+ | New Bag | 10/12/20 | | | | | | 19 7:24 | | | | | | PM PST | | | | +---------+ +---+---+---+ +---+---+ | | | +---+---+ + +-------+ +---------+---+---+ | morphine (PF) (DURAMORPH) 0.5 | Given | 10/12/20 | 200 mcg | | | | mg/mL injection INTRATHECAL, | | 19 7:29 | | | | | PRN, Starting 10/12/19 at | | PM PST | | | | | 1929, Anesthesia Intra-op | | | | | | + +-------+ +---------+---+---+ +---+---+ | | | +---+---+ + +-------+ +------+---+---+ | ondansetron (ZOFRAN) injection | Given | 10/12/20 | 4 mg | | | | Intravenous, PRN, Starting Sat | | 7:54 | | | | | 10/12/19 at 1954, Anesthesia | | PM PST | | | | | Intra-op | | | | | | + +-------+ +------+---+---+ +---+---+ | | | +---+---+ + +-------+ + +---+---+ | oxytocin (PITOCIN) injection | Given | 10/12/20 | 20 Units | | | | Intravenous, PRN, Starting Sat | | 19 7:53 | | | | | 10/12/19 at 1953, Anesthesia | | PM PST | | | | | Intra-op | | | | | | + +-------+ + +---+---+ +---+---+ | | | +---+---+ documented in this encounter"
--- OUTSIDE RECORDS SUMMARY | ~2020-06-02 | XMS | Encounter Summary ---
Demographics + + + | Address | [address] | | | [place] [address] | + + + | Home Phone | | + + + | Preferred Language | Unknown | + + + | Marital Status | Single | + + + | Quaker Affiliation | 1041 | + + + | Race | White | + + + | Ethnic Group | Not or | + + + Author + + + | Author | [facility] | | | and [place]anyana | + + + | Organization | [facility] | | | [...] Team Providers + +------+ + | Care Employee Communications Intern Name | Role | Phone | + +------+ + | No, Physician | PCP | Unavailable | + +------+ + Encounter Details +--------+ + + + + | Date | Type | Department | Care Team | Description | +--------+ + + + + | 09/30/ | [facility] | [facility] | Marisela Garcia | Excessive | | 2019 | Encounter | [facility] | MD [address] | growth affecting | | | | [address] | [address] | management of | | | | [address] | [place] [address] | in third | | | | [place], [place] | [phone] | trimester, single or | | | | [phone] | | unspecified fetus | | | | [phone] | | | +--------+ + + + [...] | 0 | 08/20/20 | | | [id number] | BY MOUTH 4 TIMES | | [...] + +--------+ + + + | US OB LIMITED 1 OR | Routin | 09/30/2019 | Excessive | Results for this | | MORE FETUS | e | 9:48 AM | growth affecting | procedure are in the | | | | PST | management of | results section. | | | | | in third | | | | | | trimester, single or | | | | | | unspecified fetus | | + +--------+ + + + documented in this encounter Results US OB Limited 1 [...] oz EFW by | | | Hadlock ([id number]) Head / Face / Neck Biometry: Cephalic [...] 11 oz EFW by | | Hadlock ([id number]) Head / Face / Neck Biometry: Cephalic [...] lb 11 oz | |EFW by Hadlock ([id number]) | |Head / Face / Neck Biometry: [...] + | Diagnosis | + + | Excessive growth affecting management of in third trimester, single or | | unspecified fetus | + + documented in this encounter"
--- OUTSIDE RECORDS SUMMARY | ~2020-06-02 | XMS | Encounter Summary ---
Demographics + + + | Address | [address] | | | [place] [address] | + + + | Home Phone [...] Author + + + | Author | [facility] | | | and Hanyana | + + + | Organization | [facility] | | | and [...] Team Providers + +------+ + | Care Information Systems Security Officer Name | Role | Phone | + +------+ + PCP | Unavailable | + +------+ + Encounter Details +--------+ + + + + | Date | Type | Department | Care Team | Description | +--------+ + + + + | 09/22/ | Emergency | [facility] | Ze Jackson, | Abdominal pain | | 2017 | | MEDICAL CENTER | MD Kalina Martin | affecting ; | | | | EMERGENCY CENTER | [place] [address] | Threatened | | | | [address] | [phone] | in first trimester | | | | [place], [place] | | | | | | [address] | | | | | | [phone] | | | +--------+ + + + [...] + + + | Blood Pressure | 110/73 | 09/22/2017 9:52 PM | | | | | PST | | + + + + + | Pulse | 84 | 09/22/2017 9:52 PM | | | | | PST | | + + + + + | Temperature | 36.2 C (97.2 F) | 09/22/2017 9:52 PM | | | | | PST | | + + + + + | Respiratory Rate | 16 | 09/22/2017 9:52 PM | | | | | PST | | + + + + + | Oxygen Saturation | - | - | | + + + + + | Inhaled Oxygen | - | - | | | Concentration | | | | + + + + + | Weight | 80.9 kg (178 lb 5.6 | 09/22/2017 9:52 PM | | | | oz) | PST | | + + + + + | Height | - | - | | + + + + + | Body Mass Index | 28.79 | 09/10/2017 3:46 PM | | | | | PST | | + + + + + documented in this encounter ED Notes Conversion Transaction, Provider Unknown - 09/22/2017 7:30 PM PSTFormatting of this note m ight be different from the original. ED Notes by Jann Holland RN at 09/22/171929 Author: Jann Holland RN Service: (none) Author Type: Registered Nurse Filed: 09/22/171929 Date of Service: 09/22/171929 Status: Signed Field Training Agent: Jann Holland RN (Registered Nurse) Dr. Jackson at bedside with ultrasound Jann Holland RN 09/22/171929 Ze Michelle MD - 09/22/2017 7:29 PM PSTFormatting of this note might be different from the o riginal. ED Provider Notes by Ze Jackson MD at 09/22/171928 Author: Ze Jackson MD Service: (none) Author Type: Physician Filed: 09/24/172100 Date of Service: 09/22/171928 Status: Signed Field Training Agent: Ze Jackson MD (Physician) [facility] Department of Emergency Medicine 7:30 PM History of Present Illness Patient Identification Hannah Reddy is a 27 y.o. female. Patient information was obtained from patient. History/Exam limitations: none. Patient presented to the Emergency Department by: Car Chief Complaint Chief Complaint Patient presents with Problem 7 weeks with cramping. 27 y.o. female presenting with a chief complaint of abd cramping. Onset of symptoms was 1 h our ago with a constant course since that time. The symptoms are described to be of 6/10 sev erity. The patient describes the quality and location of the symptoms as the following: garrett p pressure in the lower abd. The patient also complains of nausea and back pain. Care prior to arrival consisted of none reported. She denies vaginal bleeding or any other Sx at this t shivani. Pt's LMP was August 04. She states that the OB she sees is Carol in [place]. This is t he pt's 2nd . She states that she has a healthy 7 y.o. at home. PCP: Per Pt None (Inactive) Past Medical History Diagnosis Date Kidney stones Past Surgical History Procedure Laterality Date CHOLECYSTECTOMY 2013 FOOT SURGERY Left 2005 Prior to Admission medications Medication Sig Start Date End Date Taking? Authorizing Provider albuterol (PROVENTIL) (2.5 MG/3ML) 0.083% nebulizer solution Take 3 mLs by nebulization nasim ry 4 (four) hours as needed for Wheezing or Shortness of Breath (Cough). Patient not taking: Reported on 09/22/2017 07/08/17 07/08/18 ARLENE Centeno albuterol (VENTOLIN HFA) 108 (90 Base) MCG/ACT inhaler Inhale 1-2 puffs into the lungs ever y 4 (four) hours as needed for Wheezing, Shortness of Breath or Cough. Patient not taking: Reported on 09/22/2017 07/08/17 07/08/18 ARLENE Centeno ALBUTEROL IN Inhale into the lungs. Historical Provider naproxen (NAPROSYN) 500 MG tablet Take 1 tablet by mouth 2 (two) times daily. For pain Patient not taking: Reported on 09/22/2017 09/02/17 09/02/18 Deneen Vinson NP ondansetron (ZOFRAN) 4 MG tablet 08/02/17 Historical Provider Allergies Allergen Reactions Keflex [Cephalexin] Hives Penicillins Hives Social History Social History Marital status: Single Spouse name: N/A Number of children: N/A Years of education: N/A Occupational History Not on file. Social History Main Topics Smoking status: Former Smoker Packs/day: 0.25 Years: 7.00 Smokeless tobacco: Never Used Alcohol use No Comment: occasional Drug use: No Sexual activity: Yes Partners: Male control/ protection: Condom Other Topics Concern Not on file Social History Narrative No narrative on file History reviewed. No pertinent family history. Review of Systems Constitutional: Negative for fever Eyes: Negative for vision changes ENT: Negative for earache CV Negative for chest pain, Resp: Negative for [id number], cough GI: Positive for abd cramping, nausea, Negative for vomiting, or diarrhea : Negative for urinary problems, vaginal bleeding Musculoskeletal: Positive for back pain Negative for joint pain Skin: Negative for rash Neuro/Psych: Negative for headache Other systems reviewed and negative except as noted. Physical Exam BP 138/74 (BP Location: Left upper arm) | Pulse 80 | Temp 97.2 F (36.2 C) (Temporal) | Resp 20 | Wt 80.9 kg (178 lb 5.6 oz) | LMP 08/14/2017 | SpO2 100% | BMI 28.79 kg/m Vital signs interpretation: WNL Pulse Oximetry interpretation: Normal General: Alert, in no apparent distress Eyes: Normal inspection, pupils equal and round, non-icteric ENT: MMM, NCAT Neck: Normal inspection, Supple CV: Rate and rhythm normal, no murmurs Respiratory: Lungs clear to auscultation bilaterally, Normal WOB Abdomen: Soft, non-tender, non-distended, No rebound or guarding Ext: No edema or trauma noted Skin: Warm and dry, No rash Neuro: Normal facial symmetry, Moving extremities spontaneously Medical Decision Making and Emergency Department Course ED Department Course Patient presents to ED with complaints of threatened miscarriage. On exam, the pt appears n ormal. Will perform bedside US, with possible transvaginal US depending on results. Labs/EKG/Imagin:32 PM Trans-abdominal US performed at bedside. Pt with what appears to be a gestational s ac. No obvious pole. We will have a transvaginal US performed. 8:25 PM ABO/Rh tested O Positive. Urinalysis shows leukocyte esterase and 1+ bacteria. CBC is normal. 8:40 PM HCG is elevated (3,563). CMP is unremarkable. Pelvic US showed an IUP without cardiac activity I discussed all ED results and my clinical impression with the patient, including possibili ty of threatened miscarriage. Patient is ready for discharge. I advised patient to follow up with her OB provider and we discussed the emergent signs and symptoms that would necessitat e a return to ED. All questions and concerns addressed. Patient was normotensive on presentation to the emergency department. No acute blood press ure intervention was needed Vitals: 09/22/17 1909 09/22/17 2028 09/22/17 2152 BP: 138/74 113/74 110/73 BP Location: Left upper arm Left upper arm Left upper arm Pulse: 80 78 84 Resp: 20 16 16 Temp: 97.2 F (36.2 C) TempSrc: Temporal SpO2: 100% 100% 99% Weight: 80.9 kg (178 lb 5.6 oz) Medications - No data to display Records Reviewed Old Medical Records Laboratory Evaluation Results Procedure Component Value Ref Range Date/Time Comprehensive metabolic panel [[id number]] (Abnormal) Collected: 09/22/171945 Order Status: Completed Specimen: Blood Updated: 09/22/172037 SODIUM 141 135 - 145 mmol/L POTASSIUM 3.9 3.5 - 4.9 mmol/L CHLORIDE 110 (H) 99 - 109 mmol/L CO2 24 23 - 32 mmol/L ANION GAP AGAP 11 5 - 20 mmol/L GLUCOSE 80 65 - 99 mg/dL BUN 9 8 - 25 mg/dL CREATININE 0.71 0.50 - 1.00 mg/dL BUN/CREAT 12 CALCIUM 8.7 8.5 - 10.5 mg/dL TOTAL PROTEIN 7.0 6.3 - 8.2 g/dL Albumin 3.8 3.6 - 5.0 g/dL GLOBULIN 3.2 1.3 - 4.9 g/dL A/G 1.2 1.0 - 2.4 TBIL 0.2 0.1 - 1.5 mg/dL ALK PHOS 63 35 - 115 U/L AST 16 10 - 45 U/L ALT 29 10 - 65 U/L EGFR >60 >60 mL/min/1.73m2 HCG, QUANTitative (Beta HCG) [[id number]] (Abnormal) Collected: 09/22/171945 Order Status: Completed Specimen: Blood Updated: 09/22/172037 HCG,QUANTITATIVE 3,563 (H) <3 mIU/mL ABO/Rh [[id number]] Collected: 09/22/171945 Order Status: Completed Specimen: Blood Updated: 09/22/172021 ABO/RH(D) -- O POSITIVE Testing performed at [facility] [place] [address];[place] [address] Urinalysis (reflex to microscopic/reflex to culture) [[id number]] (Abnormal) Collected: 09/22/171945 Order Status: Completed Specimen: Urine, Clean Catch Updated: 09/22/172010 COLOR UA YELLOW CLARITY CLEAR Specific [place], UA 1.014 1.002 - 1.030 LEUKOCYTE ESTERASE TRACE (A) NEGATIVE NITRITE NEGATIVE NEGATIVE UROBILINOGEN NORMAL <1.1 mg/dL PROTEIN NEGATIVE NEGATIVE mg/dL PH,URINE 7.0 5.0 - 8.0 BLOOD NEGATIVE NEGATIVE KETONES NEGATIVE NEGATIVE mg/dL BILIRUBIN NEGATIVE NEGATIVE GLUCOSE NEGATIVE NEGATIVE mg/dL WBC 0-2 0 - 5 /hpf RBC 0-2 0 - 5 /hpf BACTERIA 1+ (A) NONE SEEN EPITHELIAL 11-15 /lpf Mucus, UA 1+ CBC with differential [[id number]] Collected: 09/22/176 Order Status: Completed Specimen: Blood Updated: 09/22/172003 WBC 8.36 3.80 - 11.00 K/uL RBC 4.51 3.70 - 5.10 M/uL HGB 13.9 11.3 - 15.5 g/dL HCT 39.4 34.0 - 46.0 % MCV 87.3 80.0 - 100.0 fl MCH 30.9 27.0 - 34.0 pg MCHC 35.3 32.0 - 35.5 g/dL RDW SD 40.7 37 - 53 fl PLT 231 150 - 400 K/uL MPV 6.8 fl DIFF TYPE AUTOMATED NEUTROPHILS 59.49 % LYMPHOCYTES 31.08 % MONOCYTES 5.19 % EOSINOPHILS 3.70 % BASOPHILS 0.54 % NEUTROPHILS ABS 4.97 1.90 - 7.40 K/uL LYMPHOCYTES ABS 2.60 1.00 - 3.90 K/uL MONOCYTES ABS 0.43 0.00 - 0.80 K/uL EOSINOPHILS ABS 0.31 0.00 - 0.50 K/uL BASOPHILS ABS 0.05 0.00 - 0.10 K/uL I personally reviewed the lab results and they have been posted to the chart. Pertinent po sitive and negative findings have been addressed appropriately. Radiology Evaluation Imaging Results US OB less than 14 weeks (Final result) Result time 09/22/17 22:10:42 Final result by Edmund Waters MD (09/22/17 22:10:42) Impression: 1. Gestational sac with yolk sac in the fundal endometrium has to with developing p ole, poorly defined, measuring 2.8 mm, correlating with 5 weeks 6 days gestation. No present cardiac activity, probably due to the early gestational age. Progress sonographic evaluatio n could be performed. 2. Unremarkable appearance of the ovaries. There may be a corpus luteum cyst on the left m easuring approximately 1 cm, poorly defined. Narrative: HISTORY: Nausea. Abdominal pain. Question ectopic gestation. COMPARISON: 02/18/17. TECHNIQUE: 8 MHz curved transvaginal sonographic grayscale, color flow, spectral Doppler evaluation of the pelvis. FINDINGS: Uterus measures 10.3 cm in length by 4.9 cm AP by 5.9 cm transverse. Heterogeneity of the m yometrium. There is a gestation in the fundal endometrium. Yolk sac 2.4 mm. Mean sac diamete r 0.61 cm, less than 5 weeks gestation. There may be a developing pole measuring 2.8 m m, corresponding with 5 weeks 6 days gestation. No cardiac activity seen presently. The right ovary measures 2.2 x 2.5 x 3.3 cm. Left ovary measures 3.2 x 2.1 x 3.1 cm. Color flow and spectral Doppler evaluation of the ovaries is unremarkable. No free fluid. ED Diagnoses Final diagnoses Abdominal pain affecting Threatened in first trimester Disposition: ED Disposition ED Disposition Condition Comment Discharge Good Follow-up Information Follow up With Specialties Details Why Contact [facility] Emergency Department Emergency Medicine If symptoms worsen [address] [place] [address] Your OB doctor Schedule an appointment as soon as possible for a visit in 1 week Discharge Medications: Discharge Medication List as of 09/22/2017 10:20 PM Dictation software, ModuleQ, used which may contain error for similar sounding words even af ter review. Personal communication requested for any clarification. Procedures Additional Documentation Procedures Attending Provider Note: I, Ze Jackson MD personally performed the services described in this documentation, as scribed by Rogerio Briscoe in my presence, and it is both accurate an d complete. Chart Reviewed and Completed: 09/24/2017 9:00 PM Scribe: I Franklin Diaz, scribing for and in the presence of Ze Jackson MD. Signed by: Franklin Diaz 09/22/2017 9:00 PM Ze Jackson MD 09/24/17 2101 documented in this e ncounter Plan of Treatment Not on filedocumented as of this encounter Procedures + +--------+ + + + | Procedure Name | Priori | Date/Time | Associated Diagnosis | Comments | | | ty | | | | + +--------+ + + + | US OB < 14 WEEKS | Routin | 09/22/2017 | | Results for this | | SINGLE OR FIRST | e | 9:57 PM | | procedure are in the | | GESTATION | | PST | | results section. | + +--------+ + + + | EXTERNAL LAB: CBC | Routin | 09/22/2017 | | Results for this | | | e | 7:46 PM | | procedure are in the | | | | PST | | results section. | + +--------+ + + + | URINALYSIS, REFLEX | Routin | 09/22/2017 | | Results for this | | MICROSCOPIC AND/OR | e | 7:46 PM | | procedure are in the | | CULTURE | | PST | | results section. | + +--------+ + + + | HCG, SERUM, QUANT | Routin | 09/22/2017 | | Results for this | | | e | 7:46 PM | | procedure are in the | | | | PST | | results section. | + +--------+ + + + | COMPREHENSIVE | Routin | 09/22/2017 | | Results for this | | METABOLIC PANEL | e | 7:46 PM | | procedure are in the | | | | PST | | results section. | + +--------+ + + + documented in this encounter Results US OB < 14 Weeks Singl or First Gestatio (09/22/2017 9:57 PM PST) + + | Specimen | + + | | + + + + + | Impressions | Performed At | + + + | 1. Gestational sac with yolk sac in the fundal endometrium has to | | | with developing pole, poorly defined, measuring 2.8 mm, | | | correlating with 5 weeks 6 days gestation. No present cardiac | | | activity, probably due to the early gestational age. Progress | | | sonographic evaluation could be performed. 2. Unremarkable | | | appearance of the ovaries. There may be a corpus luteum cyst on the | | | left measuring approximately 1 cm, poorly defined. Electronically | | | signed by Edmund Waters MD on 09/22/2017 10:10 PM | | + + + + + + | Narrative | Performed At | + + + | HISTORY: Nausea. Abdominal pain. Question ectopic gestation. | | | COMPARISON: 02/18/17. TECHNIQUE: 8 MHz curved transvaginal | | | sonographic grayscale, color flow, spectral Doppler evaluation of the | | | pelvis. FINDINGS: Uterus measures 10.3 cm in length by 4.9 cm AP | | | by 5.9 cm transverse. Heterogeneity of the myometrium. There is a | | | gestation in the fundal endometrium. Yolk sac 2.4 mm. Mean sac | | | diameter 0.61 cm, less than 5 weeks gestation. There may be a | | | developing pole measuring 2.8 mm, corresponding with 5 weeks 6 | | | days gestation. No cardiac activity seen presently. The | | | right ovary measures 2.2 x 2.5 x 3.3 cm. Left ovary measures 3.2 x | | | 2.1 x 3.1 cm. Color flow and spectral Doppler evaluation of the | | | ovaries is unremarkable. No free fluid. | | + + + + + | Procedure Note | + + | Eliecer, Rad Conversion - 05/30/2019 2:18 AM PDT HISTORY:Nausea. Abdominal pain. | | Question ectopic gestation. COMPARISON:02/18/17. TECHNIQUE:8 MHz curved transvaginal | | sonographic grayscale, color flow, spectral Doppler evaluation of the pelvis. | | FINDINGS:Uterus measures 10.3 cm in length by 4.9 cm AP by 5.9 cm transverse. | | Heterogeneity of the myometrium. There is a gestation in the fundal endometrium. Yolk | | sac 2.4 mm. Mean sac diameter 0.61 cm, less than 5 weeks gestation. There may be a | | developing pole measuring 2.8 mm, corresponding with 5 weeks 6 days gestation. No | | cardiac activity seen presently. The right ovary measures 2.2 x 2.5 x 3.3 cm. Left | | ovary measures 3.2 x 2.1 x 3.1 cm. Color flow and spectral Doppler evaluation of the | | ovaries is unremarkable. No free fluid. IMPRESSION: 1. Gestational sac with yolk sac in | | the fundal endometrium has to with developing pole, poorly defined, measuring 2.8 | | mm, correlating with 5 weeks 6 days gestation. No present cardiac activity, probably | | due to the early gestational age. Progress sonographic evaluation could be performed.2. | | Unremarkable appearance of the ovaries. There may be a corpus luteum cyst on the left | | measuring approximately 1 cm, poorly defined. | |Left ovary measures 3.2 x 2.1 x 3.1 cm. | | | |Color flow and spectral Doppler evaluation of the ovaries is unremarkable. | | | |No free fluid. | | | |IMPRESSION: | |1. Gestational sac with yolk sac in the fundal endometrium has to with developing po le, poorly defined, measuring 2.8 mm, correlating with 5 weeks 6 days gestation. No present cardiac activity, probably due to the | |early gestational age. Progress | |sonographic evaluation could be performed. | |2. Unremarkable appearance of the ovaries. There may be a corpus luteum cyst on the left m easuring approximately 1 cm, poorly defined. | | | | | + + Urinalysis, Reflex Microscopic and/or Culture (09/22/2017 7:46 PM PST) + + + + + [...] + + + + | Specific | 1.014 | 1.002 - 1.030 | EXTERNAL | | | [place], | | | LAB | | | [...] + + + + | Urobilinoge | NORMAL | mg/dL | EXTERNAL | | | n, Urine | | | LAB | | + + + + + + | Protein, | NEGATIVE | mg/dL | EXTERNAL | | | Urine | | | LAB | | + + + + + + | pH, Urine | 7.0 | 5.0 - 8.0 | EXTERNAL | | | [...] + + + + | Glucose, | NEGATIVE | mg/dL | EXTERNAL | | | Urine | | | LAB | | + + + + + + | WBC, UA | 0-2 | 0 - 5 /hpf | EXTERNAL | | | | | | LAB | | + + + + + + | RBC, UA | 0-2 | 0 - 5 /hpf | EXTERNAL | | | | | | LAB | | + + + + + + | Bacteria, | 1+ (A) | | EXTERNAL | | | UA | | | LAB | | + + + + + + | Epithelial | 11-15 | /lpf | EXTERNAL | | | Cells | | | LAB | | + + + + + + | Mucus, | 1+Comment: Testing | | EXTERNAL | | | Urine | performed at [facility] | | LAB | | | | [address];[place], [place] | | | | | | [address] | | | | + + + + + + + + | Specimen | + + | | + + + +---------+ + + | Performing | Address | City/State/Zipcode | Phone Number | | Organization | | | | + +---------+ + + | EXTERNAL LAB | | | | + +---------+ + + External Lab: CBC (09/22/2017 7:46 PM PST) + + + + + + | Component | Value | Ref Range | Performed | Pathologist | | | | | At | Signature | + + + + + + | WBC | 8.36 | 3.80 - 11.00 | EXTERNAL | | | | | K/uL | LAB | | + + + + + + | Non- | 4.51 | 3.70 - 5.10 | EXTERNAL | | | Red Blood | | M/uL | LAB | | | Cells | | | | | | Counted | | | | | + + + + + + | Hemoglobin | 13.9 | 11.3 - 15.5 | EXTERNAL | | | | | g/dL | LAB | | + + + + + + | Hematocrit, | 39.4 | 34.0 - 46.0 % | EXTERNAL | | | POC | | | LAB | | + + + + + + | MCV | 87.3 | 80.0 - 100.0 fl | EXTERNAL | | | | | | LAB | | + + + + + + | MCH | 30.9 | 27.0 - 34.0 pg | EXTERNAL | | | | | | LAB | | + + + + + + | MCHC | 35.3 | 32.0 - 35.5 | EXTERNAL | | | | | g/dL | LAB | | + + + + + + | RDW-CV | 40.7 | 37 - 53 fl | EXTERNAL | | | | | | LAB | | + + + + + + | Platelet | 231 | 150 - 400 K/uL | EXTERNAL | | | Count | | | LAB | | | Plasma | | | | | + + + + + + | MPV | 6.8 | fl | EXTERNAL | | | | | | LAB | | + + + + + + | Differentia | AUTOMATED | | EXTERNAL | | | l Type | | | LAB | | + + + + + + | % Segmented | 59.49 | % | EXTERNAL | | | | | | LAB | | | Neutrophils | | | | | + + + + + + | % | 31.08 | % | EXTERNAL | | | Lymphocytes | | | LAB | | + + + + + + | % Monocytes | 5.19 | % | EXTERNAL | | | | | | LAB | | + + + + + + | % | 3.70 | % | EXTERNAL | | | Eosinophils | | | LAB | | + + + + + + | % Basophils | 0.54 | % | EXTERNAL | | | | | | LAB | | + + + + + + | Absolute | 4.97 | 1.90 - 7.40 | EXTERNAL | | | Segmented | | K/uL | LAB | | | Neutrophils | | | | | + + + + + + | Absolute | 2.60 | 1.00 - 3.90 | EXTERNAL | | | Lymphocytes | | K/uL | LAB | | + + + + + + | Absolute | 0.43 | 0.00 - 0.80 | EXTERNAL | | | Monocytes | | K/uL | LAB | | + + + + + + | Absolute | 0.31 | 0.00 - 0.50 | EXTERNAL | | | Eosinophils | | K/uL | LAB | | + + + + + + | Absolute | 0.05Comment: Testing | 0.00 - 0.10 | EXTERNAL | | | Basophils | performed at [facility];[address] | K/uL | LAB | | | | [address];[place] | | | | | | [address] | | | | + + + + + + + + | Specimen | + + | Blood specimen | | (specimen) | + + + +---------+ + + | Performing | Address | City/State/Zipcode | Phone Number | | Organization | | | | + +---------+ + + | EXTERNAL LAB | | | | + +---------+ + + HCG, Serum, Quant (09/22/2017 7:46 PM PST) + + + + + + | Component | Value | Ref Range | Performed | Pathologist | | | | | At | Signature | + + + + + + | hCG Quant, | 3,563 (H)Comment: | mIU/mL | EXTERNAL | | | Serum | APPROX GESTATIONAL | | LAB | | | | AGE..APPROX HCG RANGE | | | | | | 0.2 - 1 WEEK . . . . . 5 | | | | | | - 501 - 2 WEEKS . . . . | | | | | | . 50 - 5002 - 3 WEEKS . | | | | | | . . . 100 - 74956 - 4 | | | | | | WEEKS . . . . 500 - | | | | | | [id number] - 5 WEEKS . . . . | | | | | | 1000 - [id number] - 6 WEEKS | | | | | | . . . 31269 - 1475095 | | | | | | - 8 WEEKS . . . [address] | | | | | | - [id number] - 3 MONTHS . | | | | | | . . 48344 - 445416 | | | | | | Testing performed at | | | | | | [facility];[address] [place] [address] | | | | | | [facility];[place] [address] | | | | + + + [...] + +---------+ + + Comprehensive Metabolic Panel (09/22/2017 7:46 PM PST) + + + + + + | Component | Value | Ref Range | Performed | Pathologist | | | | | At | Signature | + + + + + + | Na | 141 | 135 - 145 | EXTERNAL | | | | | mmol/L | LAB | | + + + + + + | K | 3.9 | 3.5 - 4.9 | EXTERNAL | | | | | mmol/L | LAB | | + + + + + + | Cl | 110 (H) | 99 - 109 mmol/L | EXTERNAL | | | | | | LAB | | + + + + + + | CO2 | 24 | 23 - 32 mmol/L | EXTERNAL | | | | | | LAB | | + + + + + + | Anion Gap | 11 | 5 - 20 mmol/L | EXTERNAL | | | | | | LAB | | + + + + + + | Glucose, | 80 | 65 - 99 mg/dL | EXTERNAL | | | Fasting | | | LAB | | + + + + + + | BUN | 9 | 8 - 25 mg/dL | EXTERNAL | | | | | | LAB | | + + + + + + | Creatinine | 0.71 | 0.50 - 1.00 | EXTERNAL | | | | | mg/dL | LAB | | + + + + + + | BUN/Creatin | 12 | | EXTERNAL | | | ine Ratio | | | LAB | | + + + + + + | Calcium | 8.7 | 8.5 - 10.5 | EXTERNAL | | | | | mg/dL | LAB | | + + + + + + | Protein, | 7.0 | 6.3 - 8.2 g/dL | EXTERNAL | | | Total | | | LAB | | + + + + + + | Albumin | 3.8 | 3.6 - 5.0 g/dL | EXTERNAL | | | | | | LAB | | + + + + + + | Globulin | 3.2 | 1.3 - 4.9 g/dL | EXTERNAL [...] + + + + | ALP, | 63 | 35 - 115 U/L | EXTERNAL | | | External | | | LAB | | + + + + + + | AST | 16 | 10 - 45 U/L | EXTERNAL | | | | | | LAB | | + + + + + + | ALT | 29 | 10 - 65 U/L | EXTERNAL [...] | | | | | | at [facility];[address] [place] [address] | | | | | | [facility];[place] [address] | | | | + + + [...] + | Diagnosis | + + | Abdominal pain affecting | + + | Threatened in first trimester Threatened , unspecified as to episode | | of care | + + documented in this encounter"
--- OUTSIDE RECORDS SUMMARY | ~2020-06-02 | XMS | Encounter Summary ---
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 Name | Role | Phone | + +------+ + | Unknown, Physician | PCP | | + +------+ + Encounter Details +--------+ + + + + | Date | Type | Department | Care Team | Description | +--------+ + + + + | 08/05/ | [facility] | [facility] | Rahul Eli | | | 2019 | Encounter | [facility] | Tony ROMERO MD [address] | | | | | [address] | [address] | | | | | [address] | [place] [address] | | | | | [place], [place] | [phone] | | | | | [address] | | | | | | [phone] | | | +--------+ + + + [...] + +---------+ + + | | Take 1-2 tablets by | 30 each | 0 | 08/05/20 | | | [id number] | mouth 4 times daily | | | 19 | 9 | | UTALBITAL (ESGIC) | as needed for up to | | | | | | 50-325-40 MG CAPS | 10 days. | | | | | + + + +---------+ + + | | Take 1-2 tablets by | | 0 | 07/16/20 | | | HYDROcodone-acetamin | mouth. | | | 19 | 9 | | ophen (NORCO) 5-325 | | | | | | | mg per tablet | | | | | | [...] OB LIMITED 1 OR | Routin | 08/05/2019 | Previous | Results for this | | MORE FETUS | e | 10:36 AM | delivery, antepartum | procedure are in the | | | | PDT | Short interval | results section. | | | | | between pregnancies | | | | | | affecting , | | | | | | antepartum | | + +--------+ + + + documented in this encounter Results US OB Limited 1 or More Fetus (08/05/2019 10:36 AM PDT) + + | Specimen | + + | | + + + + + | Narrative | Performed At | + + + | Indication | [facility] | | ========= Follow up anatomy previously not seen: kidneys, face. | | | Method ====== Transabdominal ultrasound examination. View: Sufficient | | | ========= [place] . Number of fetuses: 1. | | | Dating ====== | | | Date Details | | | | | | Gest. age | | | MANUEL External assessment | | | | | | | | | 28 w + 0 d | | | 10/28/2019 U/S | | | 08/05/2019 | | | based upon AC, BPD, Femur, HC | | | 29 w + 4 d | | | 10/17/2019 Assigned dating Dating performed | | | on 08/05/2019, based on the external assessment | | | 28 w + 0 d | | | 10/28/2019 General Evaluation Cardiac activity | | | present. FHR 129 bpm. Presentation cephalic. Placenta Placental site: | | | anterior. Amniotic fluid MVP 5.1 cm. ABDIRIZAK 18.3 cm. Q1 3.6 cm, Q2 5.0 | | | cm, Q3 4.7 cm, Q4 5.1 cm. Biometry Main | | | Biometry: BPD | | | 71.7 mm | | | 28w 5d 64% | | | Hadlock OFD | | | 98.2 mm | | | 29w 0d 86% | | | Nicolaides HC | | | 270.5 mm | | | 29w 4d 67% | | | Hadlock AC | | | 259.9 mm | | | 30w 1d 94% | | | Hadlock Femur | | | 57.0 mm 29w | | | 6d 86% | | | Hadlock HC / AC | | | 1.04 | | | -/- 3% | | | Smith Weight Calculation: EFW | | | 1,473 g | | | 29w 4d | | | 95% Hadlock EFW (lb,oz) | | | 3 lb 4 oz EFW by | | | Hadlock | | | ([id number]) Head / Face / Neck Biometry: Cephalic index | | | 0.73 | | | | | | 9% Chitty Extremities / Bony Struc | | | Biometry: FL / BPD | | | 0.80 | | | -/- | | | Hadlock FL / HC | | | 0.21 | | | -/- | | | Hadlock FL / AC | | | 0.22 | | | 20w 2d | | | Hadlock Other Structures | | | Biometry: AF MVP 5.1 | | | cm | | | | | | ABDIRIZAK | | | 18.3 cm | | | | | | FHR | | | 129 bpm | | | Maternal Structures Cervix | | | Cervical length 48.8 mm | | | Casey Saw Operator Comments The size is greater | | | than dates suggest. Kidneys, face, nose, lips and profile visualized. | | | The patient received thermal prints. Impression ========= LGA | | | ABDIRIZAK generous Plac ant kidneys face nose lips normal Monitor growth | | | Will discus with pt today | | |kidneys face nose lips normal | | |Monitor growth | | |Will discus with pt today | | | | | | | | | | | | | | + + + + + | Procedure Note | + + | Eliecer, Rad Results In - 08/06/2019 11:19 AM PDT Indication ========= Follow up | | anatomy previously not seen: kidneys, face. Method ====== Transabdominal ultrasound | | examination. View: Sufficient ========= [place] . Number of | | fetuses: 1. Dating ====== Date | | Details | | Gest. age MANUEL External assessment | | | | 28 w + 0 d 10/28/2019 | | U/S 08/05/2019 based upon AC, | | BPD, Femur, HC 29 w + 4 d | | 10/17/2019 Assigned dating Dating performed on 08/05/2019, based on | | the external assessment 28 w + 0 d | | 10/28/2019 General Evaluation Cardiac activity present. FHR 129 bpm. | | Presentation cephalic. Placenta Placental site: anterior. Amniotic fluid MVP 5.1 cm. ABDIRIZAK | | 18.3 cm. Q1 3.6 cm, Q2 5.0 cm, Q3 4.7 cm, Q4 5.1 cm. Biometry Main | | Biometry: BPD 71.7 mm | | 28w 5d 64% Hadlock OFD | | 98.2 mm 29w 0d | | 86% Nicolaides HC | | 270.5 mm 29w 4d 67% | | Hadlock AC 259.9 mm | | 30w 1d 94% Hadlock Femur | | 57.0 mm 29w 6d | | 86% Hadlock HC / AC | | 1.04 -/- 3% | | Smith Weight Calculation: EFW | | 1,473 g 29w 4d 95% | | Hadlock EFW (lb,oz) 3 lb 4 | | oz EFW by Hadlock ([id number]) Head / Face / | | Neck Biometry: Cephalic index 0.73 | | 9% Chitty Extremities | | / Bony Struc Biometry: FL / BPD 0.80 | | -/- | | Hadlock FL / HC 0.21 | | -/- Hadlock FL / AC | | 0.22 20w 2d | | Hadlock Other Structures Biometry: AF MVP | | 5.1 cm | | ABDIRIZAK | | 18.3 cm | | FHR 129 | | bpm Maternal Structures Cervix | | Cervical length 48.8 mm Casey Saw Operator Comments The | | size is greater than dates suggest. Kidneys, face, nose, lips and profile | | visualized. The patient received thermal prints. Impression ========= LGA infant ABDIRIZAK | | generous Plac ant kidneys face nose lips normal Monitor growth Will discus with pt today | | | |EFW by Hadlock ([id number]) | |Head / Face / Neck Biometry: | |Cephalic index 0.73 9% Chitty | |Extremities / Bony Struc Biometry: | |FL / BPD 0.80 -/- Hadlock | |FL / HC 0.21 -/- Hadlock | |FL / AC 0.22 20w 2d Hadlock | |Other Structures Biometry: | |AF MVP 5.1 cm | |ABDIRIZAK 18.3 cm | |FHR 129 bpm | | | |Maternal Structures | | | | | |Cervix Cervical length 48.8 mm | | | |Casey Saw Operator Comments | | | | | |The size is greater than dates suggest. Kidneys, face, nose, lips and profile visuali zed. The patient received thermal prints. | | | |Impression | |========= | | | |LGA | |ABDIRIZAK generous | |Plac ant | |kidneys face nose lips normal | |Monitor growth | |Will discus with pt today | | | | | | [...]
--- OUTSIDE RECORDS SUMMARY | ~2020-06-02 | XMS | Encounter Summary ---
Demographics + + + | Address | [address] | | | [place] [address] | + + + | Home Phone | | + + + | Preferred Language | Unknown | + + + | Marital Status | Single | + + + | Rastafarian Affiliation | 1041 | + + + | Race | White | + + + | Ethnic Group | Not or | + + + Author + + + | Author | [facility] | | | and Hanyana | + + + | Organization | [facility] | | | [...] Team Providers + +------+ + | Care Fire Observer Name | Role | Phone | + +------+ + PCP | Unavailable | + +------+ + Encounter Details +--------+ + + + + | Date | Type | Department | Care Team | Description | +--------+ + + + + | 09/10/ | Emergency | [facility] | Carroll Valdes MD | Right foot pain; | | 2017 | | [facility] | [address] [facility] [facility] | Muscle spasm; | | | | [facility] | [place] [address] | Elevated blood | | | | [address] | [phone] | pressure reading | | | | [place] | | | | | | [address] | | | | | | [phone] | | | +--------+ + + + [...] + + + | Blood Pressure | 131/79 | 09/10/2017 3:46 PM | | | | | PST | | + + + + + | Pulse | 94 | 09/10/2017 3:46 PM | | | | | PST | | + + + + + | Temperature | 36.7 C (98.1 F) | 09/10/2017 3:46 PM | | | | | PST | | + + + + + | Respiratory Rate | 16 | 09/10/2017 3:46 PM | | | | | PST | | + + + + + | Oxygen Saturation | - | - | | + + + + + | Inhaled Oxygen | - | - | | | Concentration | | | | + + + + + | Weight | 80.1 kg (176 lb 9.4 | 09/10/2017 3:46 PM | | | | oz) | PST | | + + + + + | Height | 167.6 cm (5' 6") | 09/10/2017 3:46 PM | | | | | PST | | + + + + + | Body Mass Index | 28.5 | 09/10/2017 3:46 PM | | | | | PST | | + + + + + documented in this encounter ED Notes Conversion Transaction, Provider Unknown - 09/10/2017 2:09 PM PSTFormatting of this note m ight be different from the original. ED Notes by Sylvester Miller RN at 09/10/17 1409 Author: Sylvester Miller RN Service: (none) Author Type: Registered Nurse Filed: 09/10/17 1410 Date of Service: 09/10/17 1409 Status: Signed Interventional Neuroradiologist: Sylvester Miller RN (Registered Nurse) Pt denies headache/migraine at this time, pain decreased down to a 6/10 right foot, still t urned inward. Provider made aware. Sylvester Miller RN 09/10/17 141 onver britney Transaction, Provider Unknown - 09/10/2017 1:42 PM PST ED Notes by Sylvester Miller RN at 09/10/17 1342 Author: Sylvester Miller RN Service: (none) Author Type: Registered Nurse Filed: 09/10/17 1343 Date of Service: 09/10/17 1342 Status: Signed Interventional Neuroradiologist: Sylvester Miller RN (Registered Nurse) Pt reports "I've had really bad migraines, I forgot to mention that". Provider made aware. Sylvester Miller RN 09/10/17 134 Carroll Yen MD - 09/10/2017 1:10 PM PSTFormatting of this note might be different from the or iginal. ED Provider Notes by Carroll Valdes MD at 09/10/17 1310 Author: Carroll Valdes MD Service: (none) Author Type: Physician Filed: 09/10/17 6333 Date of Service: 09/10/17 1310 Status: Signed Interventional Neuroradiologist: Carroll Valdes MD (Physician) Formerly [facility] Department of Emergency Medicine No flowsheet data found. 1:26 PM History of Present Illness Patient Identification Hannah Cody is a 27 y.o. female. Hannah Cody Patient information was obtained from patient. History/Exam limitations: none. Patient presented to the Emergency Department by: Car Chief Complaint Chief Complaint Patient presents with Foot Swelling Bilaterally, started a day ago per patient, worse on right foot Foot Pain right foot primarily, pt reports it started swelling and she got a cramp and it's been hu rting ever since; hx of foot surgery on the left foot 27 y.o. F presents to ED with chief complaint of foot swelling. Onset of symptoms was a co uple days ago with a worsening course since that time. The symptoms are described to be of moderate severity. Pt describes the quality and location as swelling in bilateral feet, wor se on the R foot. Pt reports pain/symptoms do not radiate. Pt states nothing makes the oanh n/symptoms better and nothing makes the pain/symptoms worse. Pt also complains of foot pain (cramping) which is worse with movement or putting weight on it and myalgia. Pt states that the pain feels like her tendons are tightening. Pt denies h/o foot injury or similar Sx. Pt denies fever, rash, or any other symptoms at this time. Care prior to arrival reported as ibuprofen and ice treatment, with no results. Pt currently takes albuterol. She reportedly l ast used ciprofloxacin last month. PCP: Per Pt None Past Medical History Diagnosis Date Kidney stones Past Surgical History Procedure Laterality Date CHOLECYSTECTOMY 2012 FOOT SURGERY Left 2005 Prior to Admission medications Medication Sig Start Date End Date Taking? Authorizing Provider albuterol (PROVENTIL) (2.5 MG/3ML) 0.083% nebulizer solution Take 3 mLs by nebulization nasim ry 4 (four) hours as needed for Wheezing or Shortness of Breath (Cough). 07/08/17 07/08/18 Yes ARLENE Centeno albuterol (VENTOLIN HFA) 108 (90 Base) MCG/ACT inhaler Inhale 1-2 puffs into the lungs ever y 4 (four) hours as needed for Wheezing, Shortness of Breath or Cough. 07/08/17 07/08/18 ARLENE Leary ALBUTEROL IN Inhale into the lungs. Historical Provider naproxen (NAPROSYN) 500 MG tablet Take 1 tablet by mouth 2 (two) times daily. For pain 08/1609/02/18 Deneen Vinson NP ondansetron (ZOFRAN) 4 MG tablet 08/02/17 Historical Provider cetirizine (ZYRTEC) 10 MG tablet Take 1 tablet by mouth daily. 09/02/17 09/10/17 Deneen Vinson NP guaiFENesin (MUCINEX) 600 MG 12 hr tablet Take 2 tablets by mouth 2 (two) times daily. 08/1609/10/17 Deneen Vinson NP methylPREDNISolone 4 MG dose pack Take 4 mg by mouth daily. Follow package directions. 07/0809/10/17 ARLENE Centeno Allergies Allergen Reactions Keflex [Cephalexin] Hives Penicillins Hives Social History Social History Marital status: Single Spouse name: N/A Number of children: N/A Years of education: N/A Occupational History Not on file. Social History Main Topics Smoking status: Former Smoker Packs/day: 0.25 Years: 7.00 Smokeless tobacco: Never Used Alcohol use Yes Comment: occasional Drug use: No Sexual activity: Yes Partners: Male control/ protection: Condom Other Topics Concern Not on file Social History Narrative No narrative on file No family history on file. Review of Systems Constitutional: Negative for: fever, chills, fatigue, sweats or weight loss Eyes: Negative for: decreased vision or irritated eyes Nose: Negative for: nosebleed Throat: Negative for: mouth sores Cardiovascular/Respiratory: Negative for: chest pain, shortness of breath, cough Gastrointestinal: Negative for: abdominal pain, vomiting, diarrhea, black or bloody stools Genitourinary: Negative for: dysuria, hematuria, urinary problems Musculoskeletal: Positive for: swelling in bilateral feet, R foot pain, myalgia Negative for: arthralgias Skin: Negative for: laceration or lesion Neuro and psych: Negative for: fainting, head injury, seizure, trouble walking Endocrine/Heme/Lymph: Negative for: swollen lymph nodes, easy bruising All systems reviewed and otherwise negative Physical Exam BP 120/76 (BP Location: Left upper arm) | Pulse 97 | Temp 98.2 F (36.8 C) | Resp 20 | Ht 1.676 m (5' 6") | Wt 80.1 kg (176 lb 9.4 oz) | LMP 08/09/2017 (Within Days) | SpO2 98% | BMI 28.50 kg/m Vital signs reviewed and WNL Pulse Oximetry interpretation: Normal General: Alert, in no apparent distress Eyes: Normal inspection, pupils equal and round, non-icteric ENT: Ears normal Nose normal Pharynx normal Neck: Normal inspection Supple No lymphadenopathy No meningismus Cardiovascular: Rate and rhythm normal No murmurs Respiratory: Breath sounds normal bilaterally Abdomen: Soft, non-tender, non-distended No guarding or rebound Genitourinary: Deferred Rectal exam: Deferred Back: Normal inspection Extremities: Full ROM in hip, knee, ankle, and all digits. Strong DP pulse. No ecchymosis, no skin breakdown, tenderness over medial aspect of R foot and mild ttp over left medial fo ot. No focal bony tenderness. There is apparent muscle spasming of medial aspect of foot. Pt 's foot is angulated with plantar aspect towards the medial side (R>L). Able to fully extend and place plantar surface completely on the ground however this elicits mild pain over medi al aspect of both feet. Skin: Color normal Warm and dry No rash Neuro: No motor deficit No sensory deficit No confusion Medical Decision Making and Emergency Department Course Records Reviewed Old medical records. Nursing notes. ED Department Course Patient is here with foot pain right greater than left. Appears to be a muscle or tendon sp asm. On exam is well appearing clinically and neurovascularly intact. Differential includes but not limited to fracture (no focal bony ttp), contusion (mild pain and ttp), sprain/strai n (consistent mechanism and diffuse ttp), dislocation (full ROM). No signs of infection incl uding cellulitis, abscess, osteomyelitis, necrotizing soft tissue infection. Will obtain xra y imaging and laboratory evaluation 2:30 PM Reviewed labs. Pt has leukocytosis (12.67) but labs are otherwise unremarkable. --> Electrolytes are normal 3:01 PM Reviewed xray with patient, no acute fracture or injury noted. Reviewed no obvious acute injury. Likely sprain/strain and contusion. ED Medication Administration from 09/10/2017 1243 to 09/10/2017 1534 Date/Time Order Dose Route Action Action by 09/10/2017 1345 sodium chloride (PF) 0.9 % flush 10 mL 10 mL Intravenous Given Sylvester Pedraza RN 09/10/2017 1348 LORazepam (ATIVAN) injection 1 mg 1 mg Intravenous Given Sylvester Toney RN However sometimes small fracture is not visualized on initial image, if persistent pain ne eds repeat work up with PCP. This does not appear to be a neurological or vascular issue. I do not see signs of fracture. Exam is consistent with muscle spasming. We will trial conserv ative outpatient management. Also referred to orthopedic. I reviewed expected course of symp toms and appropriate treatment including NSAIDs rest, ice, tylenol, and gentle ROM. Reviewed needs close PCP f/u. Patient confirmed understanding of ED return precautions. Laboratory Evaluation Labs Reviewed CBC W/AUTO DIFF (REFLEX TO MANUAL) - Abnormal; Notable for the following: Result Value WBC 12.67 (*) NEUTROPHILS ABS 8.65 (*) EOSINOPHILS ABS 0.78 (*) All other components within normal limits COMPREHENSIVE METABOLIC PANEL MAGNESIUM Results Procedure Component Value Units Date/Time Comprehensive metabolic panel [[id number]] Collected: 09/10/171347 Specimen: Blood Updated: 09/10/17 1415 SODIUM 139 mmol/L POTASSIUM 4.0 mmol/L CHLORIDE 107 mmol/L CO2 23 mmol/L ANION GAP AGAP 13 mmol/L GLUCOSE 90 mg/dL BUN 8 mg/dL CREATININE 0.89 mg/dL BUN/CREAT 9 CALCIUM 9.1 mg/dL TOTAL PROTEIN 7.5 g/dL Albumin 4.0 g/dL GLOBULIN 3.5 g/dL A/G 1.1 TBIL 0.5 mg/dL ALK PHOS 62 U/L AST 23 U/L ALT 28 U/L EGFR >60 mL/min/1.73m2 Magnesium [[id number]] Collected: 09/10/171347 Specimen: Blood Updated: 09/10/17 1415 MAGNESIUM 2.1 mg/dL CBC with differential [[id number]] (Abnormal) Collected: 09/10/171347 Specimen: Blood Updated: 09/10/17 1358 WBC 12.67 (H) K/uL RBC 4.82 M/uL HGB 14.5 g/dL HCT 42.7 % MCV 88.6 fl MCH 30.2 pg MCHC 34.1 g/dL RDW SD 41.6 fl PLT 190 K/uL MPV 7.4 fl DIFF TYPE AUTOMATED NEUTROPHILS 68.25 % LYMPHOCYTES 21.86 % MONOCYTES 3.17 % EOSINOPHILS 6.17 % BASOPHILS 0.55 % NEUTROPHILS ABS 8.65 (H) K/uL LYMPHOCYTES ABS 2.77 K/uL MONOCYTES ABS 0.40 K/uL EOSINOPHILS ABS 0.78 (H) K/uL BASOPHILS ABS 0.07 K/uL Available Labs reviewed and interpreted by me. Radiology Evaluation Imaging Results XR Foot Right AP Lateral and Oblique (Final result) Result time 09/10/17 13:44:07 Final result by Toni Whitaker MD (09/10/17 13:44:07) Impression: 1. No acute fracture or dislocation. Narrative: [facility] 1990 XR FOOT RIGHT 09/10/2017 1:39 PM INDICATION: Right foot pain COMPARISON: None TECHNIQUE: Right foot series, AP, oblique and lateral views FINDINGS: The bone density is normal. There is no acute fracture or dislocation. There are no osseous erosions. There is no periosteal reaction. The soft tissues are within normal cooley its. There are no retained foreign bodies. There is a small traction calcaneal bone spur. Available radiology studies reviewed and interpreted contemporaneously by me. ED Diagnoses Final diagnoses Right foot pain Muscle spasm Elevated blood pressure reading Disposition: ED Disposition ED Disposition Condition Comment Orders Discharge Stable Follow-up Information Follow up With Specialties Details Why Contact Info Petr Iraheta MD Orthopedic Surgery As needed 5 [facility] [phone] [facility] Emergency Department in [place] Emergency [facility] If symptoms worsen [address] [facility] [address] Discharge Medications: New Prescriptions HYDROCODONE-ACETAMINOPHEN (NORCO) 5-325 MG PER TABLET Take 1 tablet by mouth every 6 (s ix) hours as needed for up to 10 days. Do not exceed 8 in a 24 hour period. Do not take Tyl enol, as this medication has Tylenol in it. Procedures Additional Documentation Procedures Attending Provider Note: Carroll Chappell MD personally performed the services described i n this documentation, as scribed by Rogerio Briscoe in my presence, and it is both accurate and complete. Chart Reviewed and Completed: 09/10/2017 3:32 PM Scribe: I Franklin Diaz, scribing for and in the presence of Carroll Valdes MD. Signed by: Franklin Diaz 09/10/2017 3:32 PM Carroll Valdes MD 09/10/17 1535 onversion Transactio n, Provider Unknown - 09/10/2017 1:09 PM PST ED Notes by Sylvester Miller RN at 09/10/17 3753 Author: Sylvester Miller RN Service: (none) Author Type: Registered Nurse Filed: 09/10/171308 Date of Service: 09/10/171308 Status: Signed Interventional Neuroradiologist: Sylvester Miller RN (Registered Nurse) Call light within reach and one side rail up. Sylvester Miller RN 09/10/17 5891 docume nted in this encounter Plan of Treatment Not on filedocumented as of this encounter Procedures + +--------+ + + + | Procedure Name | Priori | Date/Time | Associated Diagnosis | Comments | | | ty | | | | + +--------+ + + + | EXTERNAL LAB: CBC | Routin | 09/10/2017 | | Results for this | | | e | 1:48 PM | | procedure are in the | | | | PST | | results section. | + +--------+ + + + | MAGNESIUM | Routin | 09/10/2017 | | Results for this | | | e | 1:48 PM | | procedure are in the | | | | PST | | results section. | + +--------+ + + + | COMPREHENSIVE | Routin | 09/10/2017 | | Results for this | | METABOLIC PANEL | e | 1:48 PM | | procedure are in the | | | | PST | | results section. | + +--------+ + + + | XR FOOT RIGHT 3 + VW | Routin | 09/10/2017 | | Results for this | | | e | 1:39 PM | | procedure are in the | | | | PST | | results section. | + +--------+ + + + documented in this encounter Results External Lab: CBC (09/10/2017 1:48 PM PST) + + + + + + | Component | Value | Ref Range | Performed | Pathologist | | | | | At | Signature | + + + + + + | WBC | 12.67 (H) | 3.80 - 11.00 | EXTERNAL | | | | | K/uL | LAB | | + + + + + + | Non- | 4.82 | 3.70 - 5.10 | EXTERNAL | | | Red Blood | | M/uL | LAB | | | Cells | | | | | | Counted | | | | | + + + + + + | Hemoglobin | 14.5 | 11.3 - 15.5 | EXTERNAL | | | | | g/dL | LAB | | + + + + + + | Hematocrit, | 42.7 | 34.0 - 46.0 % | EXTERNAL | | | POC | | | LAB | | + + + + + + | MCV | 88.6 | 80.0 - 100.0 fl | EXTERNAL | | | | | | LAB | | + + + + + + | MCH | 30.2 | 27.0 - 34.0 pg | EXTERNAL | | | | | | LAB | | + + + + + + | MCHC | 34.1 | 32.0 - 35.5 | EXTERNAL | | | | | g/dL | LAB | | + + + + + + | RDW-CV | 41.6 | 37 - 53 fl | EXTERNAL | | | | | | LAB | | + + + + + + | Platelet | 190 | 150 - 400 K/uL | EXTERNAL | | | Count | | | LAB | | | Plasma | | | | | + + + + + + | MPV | 7.4 | fl | EXTERNAL | | | | | | LAB | | + + + + + + | Differentia | AUTOMATED | | EXTERNAL | | | l Type | | | LAB | | + + + + + + | % Segmented | 68.25 | % | EXTERNAL | | | | | | LAB | | | Neutrophils | | | | | + + + + + + | % | 21.86 | % | EXTERNAL | | | Lymphocytes | | | LAB | | + + + + + + | % Monocytes | 3.17 | % | EXTERNAL | | | | | | LAB | | + + + + + + | % | 6.17 | % | EXTERNAL | | | Eosinophils | | | LAB | | + + + + + + | % Basophils | 0.55 | % | EXTERNAL | | | | | | LAB | | + + + + + + | Absolute | 8.65 (H) | 1.90 - 7.40 | EXTERNAL | | | Segmented | | K/uL | LAB | | | Neutrophils | | | | | + + + + + + | Absolute | 2.77 | 1.00 - 3.90 | EXTERNAL | | | Lymphocytes | | K/uL | LAB | | + + + + + + | Absolute | 0.40 | 0.00 - 0.80 | EXTERNAL | | | Monocytes | | K/uL | LAB | | + + + + + + | Absolute | 0.78 (H) | 0.00 - 0.50 | EXTERNAL | | | Eosinophils | | K/uL | LAB | | + + + + + + | Absolute | 0.07Comment: Testing | 0.00 - 0.10 | EXTERNAL | | | Basophils | performed at [facility], [address] LAB | | | | [address], | | | | | | [place] [address] | | | | + + + + + + + + | Specimen | + + | Blood specimen | | (specimen) | + + + +---------+ + + | Performing | Address | City/State/Zipcode | Phone Number | | Organization | | | | + +---------+ + + | EXTERNAL LAB | | | | + +---------+ + + Magnesium (09/10/2017 1:48 PM PST) + + + + + + | Component | Value | Ref Range | Performed | Pathologist | | | | | At | Signature | + + + + + + | Magnesium | 2.1Comment: Testing | 1.7 - 2.4 mg/dL | EXTERNAL | | | | performed at [facility], [address] | | LAB | | | | [address], | | | | | | [place] [address] | | | | + + + [...] + +---------+ + + Comprehensive Metabolic Panel (09/10/2017 1:48 PM PST) + + + + + + | Component | Value | Ref Range | Performed | Pathologist | | | | | At | Signature | + + + + + + | Na | 139 | 135 - 145 | EXTERNAL | | | | | mmol/L | LAB | | + + + + + + | K | 4.0 | 3.5 - 4.9 | EXTERNAL | | | | | mmol/L | LAB | | + + + + + + | Cl | 107 | 99 - 109 mmol/L | EXTERNAL | | | | | | LAB | | + + + + + + | CO2 | 23 | 23 - 32 mmol/L | EXTERNAL | | | | | | LAB | | + + + + + + | Anion Gap | 13 | 5 - 20 mmol/L | EXTERNAL | | | | | | LAB | | + + + + + + | Glucose, | 90 | 65 - 99 mg/dL | EXTERNAL | | | Fasting | | | LAB | | + + + + + + | BUN | 8 | 8 - 25 mg/dL | EXTERNAL | | | | | | LAB | | + + + + + + | Creatinine | 0.89 | 0.50 - 1.00 | EXTERNAL | | | | | mg/dL | LAB | | + + + + + + | BUN/Creatin | 9 | | EXTERNAL | | | ine Ratio | | | LAB | | + + + + + + | Calcium | 9.1 | 8.5 - 10.5 | EXTERNAL | | | | | mg/dL | LAB | | + + + + + + | Protein, | 7.5 | 6.3 - 8.2 g/dL | EXTERNAL | | | Total | | | LAB | | + + + + + + | Albumin | 4.0 | 3.6 - 5.0 g/dL | EXTERNAL | | | | | | LAB | | + + + + + + | Globulin | 3.5 | 1.3 - 4.9 g/dL | EXTERNAL | | | | | | LAB | | + + + + + + | A/G Ratio | 1.1 | 1.0 - 2.4 | EXTERNAL | | | | | | LAB | | + + + + + + | Bilirubin | 0.5 | 0.1 - 1.5 mg/dL | EXTERNAL | | | Total | | | LAB | | + + + + + + | ALP, | 62 | 35 - 115 U/L | EXTERNAL | | | External | | | LAB | | + + + + + + | AST | 23 | 10 - 45 U/L | EXTERNAL | | | | | | LAB | | + + + + + + | ALT | 28 | 10 - 65 U/L | EXTERNAL [...] | | | | | | at [facility], [address] | | | | | [place] | | | | | | [address] | | | | + + + + + + + + | Specimen | + + | Blood specimen | | (specimen) | + + + +---------+ + + | Performing | Address | City/State/Zipcode | Phone Number | | Organization | | | | + +---------+ + + | EXTERNAL LAB | | | | + +---------+ + + XR Foot Right 3 + Vw (09/10/2017 1:39 PM PST) + + | Specimen | + + | | + + + + + | Impressions | Performed At | + + + | 1. No acute fracture or dislocation. | | + + + + + + | Narrative | Performed At | + + + | [facility] 1990 XR FOOT RIGHT 09/10/2017 1:39 PM | | | INDICATION: Right foot pain COMPARISON: None TECHNIQUE: Right | | | foot series, AP, oblique and lateral views FINDINGS: The bone | | | density is normal. There is no acute fracture or dislocation. There | | | are no osseous erosions. There is no periosteal reaction. The soft | | | tissues are within normal limits. There are no retained foreign | | | bodies. There is a small traction calcaneal bone spur. | | + + + + + | Procedure Note | + + | Eliecer, Rad Conversion - 05/30/2019 2:18 AM PDT [facility]1990XR FOOT | | RIGHT09/10/2017 1:39 PM INDICATION: Right foot pain COMPARISON: None TECHNIQUE: Right | | foot series, AP, oblique and lateral views FINDINGS: The bone density is normal. There | | is no acute fracture or dislocation. There are no osseous erosions. There is no | | periosteal reaction. The soft tissues are within normal limits. There are no retained | | foreign bodies. There is a small traction calcaneal bone spur. IMPRESSION: 1. No acute | | fracture or dislocation. | | 1:44 PM | | | |TECHNIQUE: Right foot series, AP, oblique and lateral views | | | |FINDINGS: The bone density is normal. There is no acute fracture or dislocation. There are no osseous erosions. There is no periosteal reaction. The soft tissues are within normal cooley its. There are no retained foreign bodies. There is a small traction | |calcaneal bone spur. | | | |IMPRESSION: | |1. No acute fracture or dislocation. | | | | | + + documented in this encounter Visit Diagnoses + + | Diagnosis | + + | Right foot pain Pain in limb | + + | Muscle spasm Spasm of muscle | + + | Elevated blood pressure reading Elevated blood pressure reading without diagnosis of | | hypertension | + + documented in this encounter
--- OUTSIDE RECORDS SUMMARY | ~2020-06-02 | XMS | Encounter Summary ---
Demographics + + + | Address | [address] | | | [place] [address] | + + + | Home Phone | | + + + | Preferred Language | Unknown | + + + | Marital Status | Single | + + + | Anabaptist Affiliation | 1041 | + + + | Race | White | + + + | Ethnic Group | Not or | + + + Author + + + | Author | [facility] | | | and Hanyana | + + + | Organization | [facility] | [...] Team Providers + +------+ + | Care Sales Agent Fire Insurance Name | Role | Phone | + +------+ + | No, Physician | PCP | Unavailable | + +------+ + Reason for Referral Evaluate & Treat (Routine) + + + + + + + | Status | Reason | Specialty | Diagnoses / | Referred By | Referred To | | | | | Procedures | Contact | Contact | + + + + + + + | Pending | Specialty | | Diagnoses | | | | Review | Services | Services / | Previous | Kierra, | | | | Required | | | Durga De La Torre MD | | | | | and | delivery, | [address] | | | | | | antepartum | [address] | | | | | | | [place], | | | | | | | [place] [address] | | | | | | | Phone: | | | | | | | [phone] | | | | | | | Fax: | | | | | | | [phone] | | + + + + + + + Reason for Visit + + + [...] | | | | | | | [place] | | | | | | [...] + + + + | 10/12/ | [facility] | [facility] | Durga Lozada | Previous | | 2019 - | Encounter | [facility] | MD Britt [address] | delivery, antepartum | | | | [address] | [address] | (Primary Dx) | | 10/15/ | | [address] | [place] [address] | | | 2019 | | [place], [place] | [phone] | | | | | [address] | | | | | | [phone] | | | +--------+ + + + [...] + + + | Blood Pressure | 139/83 | 10/15/2019 8:00 AM | | | | | PST | | + + + + + | Pulse | 80 | 10/15/2019 8:00 AM | | | [...] + + + | Oxygen Saturation | 99% | 10/15/2019 12:11 AM | | | | | PST [...] Lozada MD - 10/15/2019 12:43 PM PST [facility] Service: Obstetrics and Gynecology Discharge Summary Date of Admission: 10/12/2019 Date of Discharge: 10/15/2019 Discharge Provider: Durga Lozada MD Attending Provider: Durga Lozada MD BRIEF HISTORY OF PRESENTATION: Hannah Reddy is a 29 y.o. female who presented in labor with history of prio r delivery. HOSPITAL COURSE: Primary OB Provider: Dr. Lozada fireworks assembler OB Clinician: Dr. Lozada CHIEF COMPLAINT: Contractions [...] REPEAT SECTION; Surgeon: Marisela Garcia MD; [place] [facility] [place] CHOLECYSTECTOMY 2013 FOOT SURGERY Left 2006 [facility] Allergies Allergen Reactions Keflex [Cephalexin] Hives Penicillins Hives Vancomycin Hives Sumatriptan Other (See Comments) Medications Prior to Admission Medication Sig Dispense Refill [id number] 50-325-40 MG CAPS TAKE 1 TO 2 [...] Requested: 1 Expiration Date: 10/11/20 Follow up: [facility] [address] [facility] [address] Go on 12/03/2019 as scheduled already [address] Dr. Garcia Discharge Medications New Medications Details methylPREDNISolone 4 mg tablet Follow package directions. aka: MEDROL DOSEPAK Unchanged Medications Details [id number] 50-325-40 MG Caps TAKE 1 TO 2 [...] with a clean towel. If you have esrina you may shower (no tub bathing), and [...] | 0 | 08/20/20 | | | [id number] | BY MOUTH 4 TIMES | | [...] | 30 | 0 | 10/15/20 | 01/14/202 | | (ADVIL,MOTRIN) 800 | mouth every [...] Edwards MD - 10/15/2019 5:53 AM PST [facility] Service: Obstetrics Physician Progress Note Hannah Reddy - 10/15/2019 APW television installer helper for stay: Dr. Lozada Brief Summary: Hannah [...] (planned) section Delivery outcome of single liveborn infant Urticaria A&P 1. 29 y.o.-year-old female, post- [...] p isidro. Hyun Freeman MD Resident Physician [facility] Residency [place], [place] 10/15/2019 5:53 AM Associated attestation - Durga Lozada MD - 10/22/2019 8:18 AM PSTAttending attestat ion, I agree with the note below and [...] Edwards MD - 10/14/2019 5:58 PM PST [facility] Service: Obstetrics Physician Progress Note Hannah Reddy - 10/14/2019 APW television installer helper for stay: Dr. Lozada Brief Summary: Hannah [...] p isidro. Hyun Freeman MD Resident Physician [facility] [place], [place] 10/14/2019 5:58 PM Associated attestation - Durga Lozada MD - 10/22/2019 8:19 AM PSTAttending attestat vidal, I agree with the note below and have been directly supervising the PGY-1 Family Medicin e Resident during care of this patient Donna Marshall, RN - 10/13/2019 11:15 PM PSTPt has [...] 10/13/2019 LABPLAT 223 03/19/2019 PLT 222 10/13/2019 Chaz Asencio DO - 10/13/2019 2:33 AM PST [facility] Service: Obstetrics Physician Progress Note Hannah Reddy - 10/13/2019 APW television installer helper for stay: Dr. Lozada Brief Summary: Hannah [...] p isidro. Chaz Mello DO Resident Physician [facility] [place], [place] 10/13/2019 7:59 AM Associated attestation - Durga Lozada MD - 10/13/2019 11:17 AM PSTAttending attestat vidal I agree with the note below and have been directly supervising the PGY-1 Family Medicin e Resident during care of this patient documented in this encounter H&P Notes Durga Lozada MD - 10/12/2019 6:52 PM PST [facility] Service: Obstetrics & Gynecology Admission and History Note Subjective: Primary OB Provider: Dr. Lozada fireworks assembler OB Clinician: Dr. Lozada CHIEF COMPLAINT: Contractions [...] [facility] CHOLECYSTECTOMY 2013 FOOT SURGERY Left 2006 [facility] Allergies Allergen Reactions Keflex [Cephalexin] Hives Penicillins Hives Vancomycin Hives Sumatriptan Other (See Comments) Medications Prior to Admission Medication Sig Dispense Refill [id number] 50-325-40 MG CAPS TAKE 1 TO 2 [...] explained and signed and she accep colten blood as I deem necessary. This document has been prepared with a voice recognition system. The possibility of "sound alike" mushroom grower errors, addition and/or deletions may occur. If [...] RN at 10/15/2019 11:42 AM PSTPlan of [facility] - Hyacinth Khanna RN - 10/15/2019 9:50 AM PST Problem: Adult Inpatient Plan of Care Goal: Plan of Care Review Outcome: Ongoing, progressing Plan of care for the day reviewed. No further needs at this time. [facility] - Baldemar Watts RN - 10/14/2019 9:43 [...] and has a pump at home. lan of [facility] - Gege Geller RN - 10/14/2019 8:56 [...] Ongoing, progressing Plan [facility] Donna Marshall RN - 10/14/2019 12:22 [...] abd removed, bleeding is light, attentive to needs, will continue to monitor. nesthesia Pain [...] she had to return to work. Her infant has been sleepy today but has still be eating every 2 - 3 hours. She has also supplemented her with formula afterwards. She had her latched in the cradle position . Reviewed correct latch techniques and helped with a deeper more comfortable latch. Her WIC office is in [place]. 7: 30 PM PSTPlan of Care - [...] section without extensions SURGEON: Durga Lozada M.D. DISPATCHER RADIO: Dr. Chaz Mello PGY-1 ANESTHESIOLOGY PROVIDER:Narciso Guzman [...] | | | | performed at [facility], [address] | | LABORATORY | | | | [address], | | | | | | [place] [address] | | | | + + + + + + + + | Specimen | + + | Blood | + + + + + + + | Performing | Address | City/State/Zipcode | Phone Number | | Organization | | | | + + + + + | [facility] | [address] | [place] [address] | [phone] | + + + + + CBC no Differential (10/12/2019 6:35 PM PST) + + + + + + | Component | Value | Ref Range | Performed | Pathologist | | | | | At | Signature | + + + + + + | WBC | 11.51 (H) | 3.80 - 11.00 | KR | | | | | K/uL | [...] [facility] | | | | performed at [facility] | | LABORATORY | | | | [address];[place] | | | | | | [address] | | | | + + + + + + + + | Specimen | + + | Blood | + + + + + + + | Performing | Address | City/State/Zipcode | Phone Number | | Organization | | | | + + + + + | [facility] | [address] | [place] [address] | [phone] | + + + + + Type [...] + + + | [facility] | [address] | | [facility] | | | | | | LABORATORY | | + + + + + + | [facility] | Testing performed at | | [facility] | | | | [facility];[address] | | LABORATORY | | | | [address];[place] [address] | | | | + + + + + + + + | Specimen | + + | Blood | + + + + + + + | Performing | Address | City/State/Zipcode | Phone Number | | Organization | | | | + + + + + | [facility] | [address] | [place] [address] | [phone] | + + + + + documented in this encounter Visit Diagnoses + + | Diagnosis | + + | Delivered by delivery following previous delivery - Primary | + + | Previous delivery, antepartum | + + | Onset (spontaneous) of labor after 37 completed weeks of gestation but before 39 | | completed weeks gestation, with delivery by (planned) section Onset | | (spontaneous) of labor after 37 completed weeks of gestation but before 39 completed | | weeks gestation, with delivery by (planned) section, delivered, with or without | | mention of antepartum condition | + + | Delivery outcome of single liveborn infant | + + | Urticaria Urticaria, unspecified | + + documented in this encounter [...] | acetaminophen (TYLENOL) tablet | Given | 10/13/20 | 1,000 mg | | | | 1,000 mg 1,000 mg, Oral, EVERY 8 | | 19 1:31 | | | | | HOURS (3 times per day), First | | PM PST | | | | | dose on 10/12/19 at 2200, | | | | | | | Start 8 hours after pre-op dose., | | | | | | | Post-op/Phase II | | | | | | + +--------+ + +------+------+ +-------+ + +---+---+ | Given | 10/13/20 | 1,000 mg | | | | | 19 6:46 | | | | | | AM PST | | | | +-------+ + +---+---+ +---+---+ | | | +---+---+ + +-------+ + +---+---+ | acetaminophen (TYLENOL) tablet | Given | [...] +---+---+ +-------+ + +---+---+ | Given | 10/15/20 [...] +---+ | | | + +---+ + +---------+ +--------+ +---+ | clindamycin in dextrose | New Bag | 10/12/20 | 900 mg | 50 mL/hr | | | (CLEOCIN) IVPB 900 mg 900 mg, | | 19 7:00 | | | | | Intravenous, Administer over 60 | | PM PST | | | | | Minutes, Prior to Incision, | | | | | | | Starting 10/12/19 at 1852, | | | | | | | For 1 dose, Pre-op, Indications: | | | | | | | Surgical Prophylaxis | | | | | | + +---------+ +--------+ +---+ +---+---+ | | | +---+---+ + +-------+ +-------+---+---+ | diphenhydrAMINE (BENADRYL) | [...] | +---+---+ + +-------+ +------+---+---+ | HYDROmorphone (CEFERINOID) | Given | 10/12/20 | 1 mg [...] | ketorolac (TORADOL) injection | Given | 10/13/20 | 30 mg | | | | 30 mg 30 mg, Intravenous, EVERY | | 19 8:08 | | | | | 6 HOURS (4 times per day), First | | AM PST | | | | | dose on 10/13/19 at 0000, For | | | | | | | 4 doses, If urine output is less | | | | | | | than 240ml/8 hours (30ml/hr) or | | | | | | | if signs of bleeding, contact MD | | | | | | | and hold., Post-op/Phase II | | | | | | + +-------+ +-------+---+---+ +-------+ +-------+---+---+ | Given | 10/13/20 | 30 mg | | | | | 19 2:31 | | | | | | AM PST | | | | +-------+ +-------+---+---+ +---+---+ | | | +---+---+ + +---------+ +---+-------+---+ | lactated ringers (LR) infusion | New Bag | 10/12/20 | | 125 | | | at 125 mL/hr, Intravenous, | | 19 6:40 | | mL/hr | | | CONTINUOUS, Starting 10/12/19 | | PM PST | | | | | at 1915, See anesthesiology | | | | | | | order for bolus, Pre-op | | | | | | + +---------+ +---+-------+---+ +---+---+ | | | +---+---+ + +-------+ +---+---+---+ | metoclopramide (REGLAN) 5 mg/mL | Given | 10/12/20 | | | | | injection Starting 10/12/19 | | 19 6:59 | | | | | at 1847, For 1 dose, Fidencio, | | ANABEL PST | | | | | Hannah: tariq override | | | | | | | Protect from light., | | | | | | + +-------+ +---+---+---+ + +---+ | | | + +---+ [...] | | | + +---+ + +-------+ +-------+---+ + | morphine injection 10 mg 10 | Given | 10/12/20 | 10 mg | | Arm-Righ | | mg, Subcutaneous, ONCE, Sat | | 19 3:22 | | | t Upper | | 10/12/19 at 1530, For 1 dose | | PM PST | | | | + +-------+ +-------+---+ + +---+---+ | | | +---+---+ + +-------+ +------+---+---+ | oxyCODONE (ROXICODONE) tablet [...] PST | | | | +-------+ +-------+---+---+ + +---+ | | | + +---+ | oxytocin in saline (PITOCIN) 30 | | | units/500 mL (60 connie-units/mL) | | | infusion Starting 10/12/19 | | | at 1932, For 1 dose, Thomas, | | | Narciso: tariq franklin, | | + +---+ | | | + +---+ + +---------+ + +-------+---+ | oxytocin in saline (PITOCIN) 30 | New Bag | 10/12/20 | 350 | 350 | | | units/500 mL (60 connie-units/mL) | | 19 8:38 | connie-un | mL/hr | | | infusion 0-999 connie-units/min | | PM PST | its/min | | | | (0-999 mL/hr), at 0-999 mL/hr, | | | | | | | Intravenous, CONTINUOUS PRN, to | | | | | | | control bleeding, Starting Sat | | | | | | | 10/12/19 at 2056, For 24 hours, | | | | | | | Immediate third stage management: | | | | | | | 350 mU/min x hour, then 100 | | | | | | | mU/min x 3.5 hours. May stop | | | | | | | after 4 hours post-delivery if | | | | | | | bleeding is controlled, bladder | | | | | | | not distended. In the event of | | | | | | | subsequent bleeding, | | | | | | | restart and titrate oxytocin, and | | | | | | | notify OB provider. Total IV | | | | | | | fluids administered not to exceed | | | | | | | 125mL/hr, | | | | | | + +---------+ + +-------+---+ +---+---+ | | | +---+---+ + +-------+ [...] | | | | TIMES DAILY Suad AYALA, for | | PM PST | | | | | indigestion, dyspepsia, Starting | | | | | | | 10/12/19 at 2056, | | | | | | + [...] | | +---+---+ + +-------+ +---+---+---+ | sodium citrate-citric acid | Given | 10/12/20 | | | | | (BICITRA) 500-334 MG/5ML liquid | | 19 6:59 | | | | | Starting 10/12/19 at 1848, | | PM PST | | | | | For 1 dose, Hannah Nicolas: | | | | | | | tariq franklin, | | | | | | + +-------+ +---+---+---+ +---+---+ | | | +---+---+ [...]
--- OUTSIDE RECORDS SUMMARY | ~2020-06-02 | XMS | Encounter Summary ---
Demographics + + + | Address | [address] | | | [place] [address] | + + + | Home Phone | | + + + | Preferred Language | Unknown | + + + | Marital Status | Single | + + + | Yarsanism Affiliation | 1041 | + + + | Race | White | + + + | Ethnic Group | Not or | + + + Author + + + | Author | [facility] | | | and Hanyana | + + + | Organization | [facility] | | | [...] Team Providers + +------+ + | Care Aircraft Assembler Name | Role | Phone | + +------+ + | Unknown, Physician | PCP | | + +------+ + Encounter Details +--------+ + + + + | Date | Type | Department | Care Team | Description | +--------+ + + + + | 08/01/ | Orders Only | [facility] | Nicolle Valentine, | Abnormal glucose | | 2019 | | [facility]OC[facility] | [employer] [address] | tolerance test (GTT) | | | | [facility] | [address] | during , | | | | [address] | [place] [address] | antepartum (Primary | | | | [address] [place], | [phone] | Dx) | | | | [place] [address] | | | | | | [phone] | | | +--------+ + + + [...] on filedocumented as of this encounter Results Gestational Glucose Test, 3Hr (08/02/2019 12:02 PM PDT) + + + + + + | Component | Value | Ref Range | Performed | Pathologist | | | | | At | Signature | + + + + + + | Glucose | 100Comment: Testing | GRAMS | REFERENCE | | | Load | Performed at TCL: [address] | | LAB | | | | [facility], | | [facility] | | | | [place] [address] | | LABORATORY | | + + + + + + | Glucose, | 82 | <95 mg/dL | REFERENCE | | | Fasting | | | LAB | | | | | | [facility] | | | | | | LABORATORY | | + + + + + + | Glucose 1hr | 149 | <180 mg/dL | REFERENCE | | | | | | LAB | | | | | | [facility] | | | | | | LABORATORY | | + + + + + + | Glucose, | 106 | <155 mg/dL | REFERENCE | | | 2hr | | | LAB | | | | | | [facility] | | | | | | LABORATORY | | + + + + + + | Glucose, | 137Comment: Testing | <140 mg/dL | REFERENCE | | | 3hr | performed at [facility];[address] | | LAB | | | | [place] | | [facility] | | | | [address];[place] [address] | | LABORATORY | | + + + + + + + + | Specimen | + + | Blood | + + + + + + + | Performing | Address | City/State/Zipcode | Phone Number | | Organization | | | | + + + + + | REFERENCE LAB | [address] [place] [address] | [place], [place] | [phone] | | [facility] | [address] | [address] | | | LABORATORY | | | | + + + + + | REFERENCE LAB | [address] [place] [address] | [place], [place] | | | [facility] | [address] | [address] | | | LABORATORY | | | | + + + + + documented in this encounter Visit Diagnoses + + | Diagnosis | + + | Abnormal glucose tolerance test (GTT) during , antepartum - Primary | + + documented in this encounter"
--- OUTSIDE RECORDS SUMMARY | ~2020-06-02 | XMS | Encounter Summary ---
Demographics + + + | Address | [address] | | | [place] [address] | + + + | Home Phone | | + + + | Preferred Language | Unknown | + + + | Marital Status | Single | + + + | Presybeterian Affiliation | 1041 | + + + | Race | White | + + + | Ethnic Group | Not or | + + + Author + + + | Author | [facility] | | | and Hanyana | + + + | Organization | [facility] | | [...] Team Providers + +------+ + | Care Boiler Coverer Name | Role | Phone | + +------+ + PCP | Unavailable | + +------+ + Encounter Details +--------+ + + + + | Date | Type | Department | Care Team | Description | +--------+ + + + + | 03/19/ | Orders Only | [facility] | Stephanie Aguirre, | | | 2019 | | [address] | FIRST AID OFFICER [address] | | | | | [place] | [address] | | | | | [address] | [place] [address] | | | | | [phone] | [phone] | | | | | | | [...] + | GC/CHLAM APTIMA | Routin | 03/19/2019 | | Results for this | | | e | 12:01 AM | | procedure are in the | | | | PDT | | results section. | + +--------+ + + + | CULTURE, URINE | Routin | 03/19/2019 | | Results for this | | | e | 12:01 AM | | procedure are in the | | | | PDT | | results section. | + +--------+ + + + documented in this encounter Results Culture, Urine (03/19/2019 12:01 AM PDT) + + | Specimen | + + | Urine specimen | | (specimen) | + + + + + | Narrative | Performed At | + + + | Specimen Description URINE,CLEAN CATCH CULTURE | EXTERNAL LAB | | NO GROWTH | | + + + + +---------+ + + | Performing | Address | City/State/Zipcode | Phone Number | | Organization | | | | + +---------+ + + | EXTERNAL LAB | | | | + +---------+ + + GC/Chlam Aptima (03/19/2019 12:01 AM PDT) + + + + + + | Component | Value | Ref Range | Performed | Pathologist | | | | | At | Signature | + + + + + + | Source | [facility] | | EXTERNAL | | | | | | LAB | | + + + + + + | Chlamydia | Not Detected | | EXTERNAL | | | Trachomatis | | | LAB | | | Naat | | | | | + + + + + + | Result | Not Detected | | EXTERNAL | | | | [...]
--- OUTSIDE RECORDS SUMMARY | ~2020-06-02 | XMS | Encounter Summary ---
Demographics + + + | Address | [address] | | | [place] [address] | + + + | Home Phone | | + + + | Preferred Language | Unknown | + + + | Marital Status | Single | + + + | Jew Affiliation | 1041 | + + + | Race | White | + + + | Ethnic Group | Not or | + + + Author + + + | Author | [facility] | | | and Hanyana | + + + | Organization | [facility] | | | [...] Team Providers + +------+ + | Care Fiber Product Cutting Machine Operator Name | Role | Phone | + +------+ + | Unknown, Physician | PCP | | + +------+ + Encounter Details +--------+ + + + + | Date | Type | Department | Care Team | Description | +--------+ + + + + | 06/10/ | Routine | [facility] | Rahul Eli | [place]: | | 2019 | | [facility] | Tony ROMERO MD [address] | | | | | [facility] | [address] | | | | | [address] | [place] [address] | | | | | [address] [place], | [phone] | | | | | [place] [address] | | | | | | [phone] | | | +--------+ + + + [...] + + + | Blood Pressure | 108/62 | 06/10/2019 11:42 AM | | | | | PDT [...] + + + + | Weight | 88 kg (194 lb) | 06/10/2019 11:42 AM | | | | | PDT | | + + + + + | Height | - | - | | + + + + + | Body Mass Index | 31.31 | 03/07/2019 11:27 AM | | | | | PDT | | + + + + + documented in this encounter Progress Notes Rahul Eli III, MD - 06/10/2019 11:50 AM [id number]-hlah old -0-0-2 with hist ory of vaginal delivery followed by section and her 2 previous pregnancies. Her MANUEL is October 30 based on LMP, consistent with first trimester ultrasound. panel was reviewed. She is Rh+. Declined aneuploidy screening. Anatomy ultrasound was done today: Single live intrauterine demonstrating normal interval growth. Anterior placenta without previa. Cervical length normal. Ovaries not vi sualized. Subjectively normal amniotic fluid. Female genitalia. Suboptimal imaging for ki dneys and profile. Rest of anatomy survey within normal limits. Dia Slater, Technical Services Assistant - 06/10/2019 11:50 AM [id number] TWlb IWG: Concerns: Patient reports occasional burning where old scar is. Anatomical US was completed. documented in this encounter Plan of Treatment [...] | | | Hadlock | | | (BLG-[id number]-FL) Head / Face / Neck Biometry: Cephalic [...] Cervical length 48.8 mm | | | Category Specialist Comments The size is greater | | [...] 4 | | oz EFW by Hadlock ([id number]-FL) Head / Face / | | Neck [...] Cervix | | Cervical length 48.8 mm Category Specialist Comments The | | size is greater than dates suggest. Kidneys, face, nose, lips and profile | | visualized. The patient received thermal prints. Impression ========= LGA ABDIRIZAK | | generous Plac ant kidneys face nose lips normal Monitor growth Will discus with pt today | | | |EFW by Hadlock ([id number]-FL) | |Head / Face / Neck Biometry: [...] Cervical length 48.8 mm | | | |Category Specialist Comments | | | | | |The [...] | + + | Previous delivery, antepartum - Primary | + + | Short interval between pregnancies affecting , antepartum | + + documented in this encounter"
--- OUTSIDE RECORDS SUMMARY | ~2020-06-02 | XMS | Encounter Summary ---
Demographics + + + | Address | [address] | | | [place] [address] | + + + | Home Phone | | + + + | Preferred Language | Unknown | + + + | Marital Status | Single | + + + | Jewish Affiliation | 1041 | + + + | Race | White | + + + | Ethnic Group | Not or | + + + Author + + + | Author | [facility] | | | and Hanyana | + + + | Organization | [facility] | | | [...] Team Providers + +------+ + | Care Specification Consultant Name | Role | Phone | + +------+ + | No, Physician | PCP | Unavailable | + +------+ + Encounter Details +--------+ + + + + | Date | Type | Department | Care Team | Description | +--------+ + + + + | 07/31/ | Orders Only | [facility] | Yanira Barrett | Supervision of [facility] | | 2019 | | [address] | Misti, Build Master | risk , | | | | [place], [place] | | antepartum | | | | [address] | | | | | | [phone] | | | +--------+ + + + [...] + +--------+ + + + | CBC WITH | Routin | 07/31/2019 | Supervision of | Results for this | | DIFFERENTIAL | e | 8:23 AM | high risk , | procedure are in the | | | | PDT | antepartum | results section. | + +--------+ + + + | GESTATIONAL GLUCOSE | Routin | 07/31/2019 | Supervision of | Results for this | | TEST, 1HR | e | 8:22 AM | high risk , | procedure are in the | | | | PDT | antepartum | results section. | + +--------+ + + + documented in this encounter Results CBC with Differential (07/31/2019 8:23 AM PDT) + + + + + + | Component | Value | Ref Range | Performed | Pathologist | | | | | At | Signature | + + + + + + | WBC | 10.61 | 3.80 - 11.00 | REFERENCE | | | | | K/uL | LAB | | | | | | [facility] | | | | | | [facility]OR[facility] | | + + + + + + | Red Blood | 4.16 | 3.70 - 5.10 | REFERENCE | | | Cells | | M/uL | LAB | | | | | | [facility] | | | | | | [facility]OR[facility] | | + + + + + + | Hemoglobin | 12.8 | 11.3 - 15.5 | REFERENCE | | | | | g/dL | LAB | | | | | | [facility] | | | | | | [facility]OR[facility] | | + + + + + + | Hematocrit | 37.6 | 34.0 - 46.0 % | REFERENCE | | | | | | LAB | | | | | | [facility] | | | | | | [facility] | | + + + + + + | MCV | 90.2 | 80.0 - 100.0 fl | REFERENCE | | | | | | LAB | | | | | | [facility] | | | | | | [facility] | | + + + + + + | MCH | 30.6 | 27.0 - 34.0 pg | REFERENCE | | | | | | LAB | | | | | | [facility] | | | | | | [facility] | | + + + + + + | MCHC | 34.0 | 32.0 - 35.5 | REFERENCE | | | | | g/dL | LAB | | | | | | [facility] | | | | | | [facility] | | + + + + + + | RDW-SD | 44.6 | 37 - 53 fl | REFERENCE | | | | | | LAB | | | | | | [facility] | | | | | | [facility] | | + + + + + + | Platelet | 231 | 150 - 400 K/uL | REFERENCE | | | Count | | | LAB | | | | | | [facility] | | | | | | [facility] | | + + + + + + | MPV | 8.4 | fl | REFERENCE | | | | | | LAB | | | | | | [facility] | | | | | | [facility] | | + + + + + + | Diff Type | AUTOMATED | | REFERENCE | | | | | | LAB | | | | | | [facility] | | | | | | [facility] | | + + + + + + | % | 78.49 | % | REFERENCE | | | Neutrophils | | | LAB | | | | | | [facility] | | | | | | [facility] | | + + + + + + | % | 16.75 | % | REFERENCE | | | Lymphocytes | | | LAB | | | | | | [facility] | | | | | | [facility] | | + + + + + + | Monocyte % | 2.82 | % | REFERENCE | | | | | | LAB | | | | | | [facility] | | | | | | [facility] | | + + + + + + | Eosinophils | 1.26 | % | REFERENCE | | | % | | | LAB | | | | | | [facility] | | | | | | [facility] | | + + + + + + | Basophils % | 0.68 | % | REFERENCE | | | | | | LAB | | | | | | [facility] | | | | | | [facility] | | + + + + + + | Neutrophils | 8.33 (H) | 1.90 - 7.40 | REFERENCE | | | , Absolute | | K/uL | LAB | | | | | | [facility] | | | | | | [facility] | | + + + + + + | Absolute | 1.78 | 1.00 - 3.90 | REFERENCE | | | Lymphocytes | | K/uL | LAB | | | | | | [facility] | | | | | | [facility] | | + + + + + + | Absolute | 0.30 | 0.00 - 0.80 | REFERENCE | | | Monocytes | | K/uL | LAB | | | | | | [facility] | | | | | | [facility] | | + + + + + + | Eosinophils | 0.13 | 0.00 - 0.50 | REFERENCE | | | , Absolute | | K/uL | LAB | | | | | | [facility] | | | | | | [facility] | | + + + + + + | Basophils, | 0.07Comment: Testing | 0.00 - 0.10 | REFERENCE | | | Absolute | performed at [facility];[address] | K/uL | LAB | | | | [facility] | | [facility] | | | | [address];[place] [address] | | LABORATORY | | + + + + + + + + | Specimen | + + | Blood | + + + + + + + | Performing | Address | City/State/Zipcode | Phone Number | | Organization | | | | + + + + + | REFERENCE LAB | [address] [place] [address] | [place] | [phone] | | [facility] | Bl[address] | [address] | | | LABORATORY | | | | + + + + + | REFERENCE LAB | [address] [place] [address] | [place] | | | [facility] | Blvd[address] | [address] | | | LABORATORY | | | | + + + + + Gestational Glucose Test, 1Hr (07/31/2019 8:22 AM PDT) + + + + + + | Component | Value | Ref Range | Performed | Pathologist | | | | | At | Signature | + + + + + + | Gestational | 151 (H)Comment: Testing | <130 mg/dL | REFERENCE | | | Glucose, | performed at [facility];[address] | | LAB | | | 1hr | [place] | | [facility] | | | | [address];[place] [address] | | LABORATORY | | + + + + + + + + | Specimen | + + | Blood | + + + + + + + | Performing | Address | City/State/Zipcode | Phone Number | | Organization | | | | + + + + + | REFERENCE LAB | [address] | [place] | [phone] | | [facility] | Blvd[address] | [address] | | | LABORATORY | | | | + + + + + | REFERENCE LAB | [address] | [place], [place] | | | [facility] | Blvd. | [address] | | | LABORATORY | | | | + + + + + documented in this encounter Visit Diagnoses + + | Diagnosis | + + | Supervision of high risk , antepartum | + + documented in this encounter"
--- OUTSIDE RECORDS SUMMARY | ~2020-06-02 | XMS | Encounter Summary ---
Demographics + + + | Address | [address] | | | [place] [address] | + + + | Home Phone | | + + + | Preferred Language | Unknown | + + + | Marital Status | Single | + + + | Confucianism Affiliation | 1041 | + + + | Race | White | + + + | Ethnic Group | Not or | + + + Author + + + | Author | [place] [facility] | | | and Hanyana | + + + | Organization | [place] [facility] | | | [...] Team Providers + +------+ + | Care Theatre Arts Professor Name | Role | Phone | + +------+ + PCP | Unavailable | + +------+ + Encounter Details +--------+ + + + + | Date | Type | Department | Care Team | Description | +--------+ + + + + | 03/06/ | Orders Only | [facility] | Stephanie Aguirre, | | | 2019 | | [address] | CLINIC CHARGE NURSE [address] | | | | | [facility] [place] | [address] | | | | | [address] | [place] [address] | | | | | [phone] | [phone] | | | | | | | [...] | HCG, SERUM, QUANT | Routin | 03/06/2019 | | Results for this | | | e | 9:35 AM | | procedure are in the | | | | PDT | | results section. | + +--------+ + + + documented in this encounter Results HCG, Serum, Quant (03/06/2019 9:35 AM PDT) + + + + + + | Component | Value | Ref Range | Performed | Pathologist | | | | | At | Signature | + + + + + + | hCG Quant, | 10,816 (H)Comment: | m[iU]/mL | EXTERNAL | | | Serum | APPROX GESTATIONAL | | LAB | | | | AGE..APPROX HCG RANGE | | | | | | 0.2 - 1 WEEK . . . . . | | | | | | 5 - 50 1 - 2 WEEKS . . . | | | | | | . . 50 - 500 2 - 3 | | | | | | WEEKS . . . . 100 - | | | | | | 5000 3 - 4 WEEKS . . . . | | | | | | 500 - 91237 4 - 5 | | | | | | WEEKS . . . . 1000 - | | | | | | 94[address] 5 - 6 WEEKS . . . | | | | | | [address]36 - 409314 6 - 8 | | | | | | WEEKS . . . 52842 - | | | | | | 580311 2 - 3 MONTHS . . | | | | | | . [address]4837 - 447562 | | | | + + + [...]
--- OUTSIDE RECORDS SUMMARY | ~2020-06-02 | XMS | Encounter Summary ---
Demographics + + + | Address | [address] | | | [place] [address] | + + + | Home Phone | | + + + | Preferred Language | Unknown | + + + | Marital Status | Single | + + + | Jehovah'S Witness Affiliation | 1041 | + + + [...] Team Providers + +------+ + | Care Behavioral Health Professional Name | Role | Phone | + +------+ + | No, Physician | PCP | Unavailable | + +------+ + Reason for Visit + + + | Reason | Comments | + + + | Follow-up | | + + + Encounter Details +--------+---------+ + + + | Date | Type | Department | Care Team | Description | +--------+---------+ + + + | 10/17/ | Office | [facility] | Durga Lozada | Allergic reaction to | | 2019 | Visit | [facility] | MD [address] | chemical substance, | | | | [facility] | [address] | accidental or | | | | [address] | [place] [address] | unintentional, | | | | [address] [place], | [phone] | subsequent encounter | | | | [place] [address] | | (Primary Dx); Tinea | | | | [phone] | | cruris | +--------+---------+ + + + Social History [...] in this encounter Patient Instructions Patient Instructions Melissa Coleman, Pie Filling Mixer - 10/17/2019 2:10 PM PSTAsk pharma cist for topical lidocaine cream. (It is usually kept behind the counter) if they don't hav e this, ask for something similar or for Recticare. Shower 2-3 times a day soap and water, dry with cool air, on the outer sides use clotrimazo le cream 2-3 times a day for yeast. Keep incision area dry, use washcloth/handtowel, change out a couple times a day. Briani hiren signed by Durga Lozada MD at 10/17/2019 2:59 PM PST documented in this encounter Progress Notes Durga Lozada MD - 10/17/2019 2:10 PM PST Subjective: Patient ID: Hannah Reddy is a 29 y.o. 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 Reports there is a lot of drainage coming from the incision with odor, hot to the touch and states her abdomen is covered in hives. States she is out of her pain medication oxycodone, has requested a refill. Past Medical History: Diagnosis Date Kidney stones stones Patient Active Problem List Diagnosis Date Noted POA Delivered by delivery following previous delivery 10/14/2019 Unknown Delivery outcome of single liveborn 10/14/2019 Unknown Urticaria 10/14/2019 Unknown Onset (spontaneous) of labor after 37 completed weeks of gestation but before 39 comple colten weeks gestation, with delivery by (planned) section 10/12/2019 Unknown Excessive growth affecting management of in third trimester 08/05/2019 Unknown Supervision of high risk , antepartum 07/08/2019 Unknown Short interval between pregnancies affecting , antepartum 03/19/2019 Unknown Previous delivery, antepartum 03/19/2019 Unknown Desires (vaginal after ) trial 03/19/2019 Unknown History of acute PID 02/28/2017 Unknown Past Surgical History: Procedure Laterality Date SECTION 05/14/2018 [facility] SECTION N/A 10/12/2019 Procedure: REPEAT SECTION; Surgeon: Marisela Garcia MD; [place] [facility] [place] 2013 FOOT SURGERY Left 2006 [facility] Family History Problem Relation Age of Onset Multiple sclerosis Mother Diabetes, NIDDM Father Breast cancer Neg Hx Uterine cancer Neg Hx Diabetes, IDDM Neg Hx Heart defect Neg Hx Heart disease Neg Hx Social History Socioeconomic History Marital status: Single Spouse name: Not on file Number of children: Not on file Years of education: Not on file Highest education level: Not on file Tobacco Use Smoking status: Former Smoker Packs/day: 0.25 Current Outpatient Medications Medication Sig Dispense Refill [id number] 50-325-40 MG CAPS TAKE 1 TO 2 CAPSULES BY MOUTH 4 TIMES D AILY NEEDED FOR UP TO 10 DAYS 0 docusate sodium (COLACE) 100 mg capsule Take 1 capsule by mouth 2 times daily. 60 capsu le 0 hydrOXYzine hydrochloride (ATARAX) 25 mg tablet Take 1 tablet by mouth every 6 hours as needed for Itching, Anxiety or Other (pain). (Patient not taking: Reported on 10/17/2019) 60 tablet 0 ibuprofen (ADVIL,MOTRIN) 800 MG tablet Take 1 tablet by mouth every 8 hours as needed f or Pain for up to 14 days. 30 tablet 0 methylPREDNISolone (MEDROL DOSEPAK) 4 mg tablet Follow package directions. 21 tablet 0 Misc. Devices (BREAST PUMP) MISC Dispense 1 electric pump 1 each 0 oxyCODONE (ROXICODONE) 5 mg tablet Take 1 tablet by mouth every 4 hours as needed for P ain for up to 6 days. 12 tablet 0 27-0.8 mg multivitamin tablet Take 1 tablet by mouth daily with breakfast. promethazine (PHENERGAN) 25 mg tablet Take 1 tablet by mouth every 8 hours as needed. ( Patient not taking: Reported on 10/17/2019) 30 tablet 0 sulfamethoxazole-trimethoprim (BACTRIM DS) 800-160 mg per tablet Take 1 tablet by mouth 2 times daily for 7 days. 14 tablet 0 No current facility-administered medications for this visit. Current Outpatient Medications on File Prior to Visit Medication Sig Dispense Refill [id number] 50-325-40 MG CAPS TAKE 1 TO 2 CAPSULES BY MOUTH 4 TIMES D AILY NEEDED FOR UP TO 10 DAYS 0 docusate sodium (COLACE) 100 mg capsule Take 1 capsule by mouth 2 times daily. 60 capsu le 0 hydrOXYzine hydrochloride (ATARAX) 25 mg tablet Take 1 tablet by mouth every 6 hours as needed for Itching, Anxiety or Other (pain). (Patient not taking: Reported on 10/17/2019) 60 tablet 0 ibuprofen (ADVIL,MOTRIN) 800 MG tablet Take 1 tablet by mouth every 8 hours as needed f or Pain for up to 14 days. 30 tablet 0 methylPREDNISolone (MEDROL DOSEPAK) 4 mg tablet Follow package directions. 21 tablet 0 Misc. Devices (BREAST PUMP) MISC Dispense 1 electric pump 1 each 0 oxyCODONE (ROXICODONE) 5 mg tablet Take 1 tablet by mouth every 4 hours as needed for P ain for up to 6 days. 12 tablet 0 27-0.8 mg multivitamin tablet Take 1 tablet by mouth daily with breakfast. promethazine (PHENERGAN) 25 mg tablet Take 1 tablet by mouth every 8 hours as needed. ( Patient not taking: Reported on 10/17/2019) 30 tablet 0 sulfamethoxazole-trimethoprim (BACTRIM DS) 800-160 mg per tablet Take 1 tablet by mouth 2 times daily for 7 days. 14 tablet 0 No current facility-administered medications on file prior to visit. Allergies Allergen Reactions Keflex [Cephalexin] Hives Penicillins Hives Vancomycin Hives Sumatriptan Other (See Comments) Review of Systems Constitutional: Negative for activity change, appetite change, chills, fatigue, fever and u nexpected weight change. Respiratory: Negative for cough and shortness of breath. Cardiovascular: Negative for chest pain and leg swelling. Gastrointestinal: Negative for abdominal distention, abdominal pain, blood in stool and rec yue pain. Genitourinary: Positive for pelvic pain (low abdominal pain at incision ) and vag inal bleeding. Negative for decreased urine volume, difficulty urinating, dyspareunia, dysur ia, flank pain, frequency, genital sores, hematuria, menstrual problem, urgency, vaginal dis charge and vaginal pain. Neurological: Negative for dizziness, syncope, weakness, numbness and headaches. All other systems reviewed and are negative. Objective: BP 118/68 | Pulse 64 | Wt 95.3 kg (210 lb 1.6 oz) | SpO2 100% | Yes | BM I 33.71 kg/m Physical Exam Vitals signs and nursing note reviewed. Abdominal: Palpations: Abdomen is soft. Tenderness: There is no tenderness. Comments: Abdomen is soft, indurated around the wound area but no evidence of infection. Her entire abdomen has reacted to the surgical prep and looks similar to what it looks lik e at time of discharge from the hospital. Her incision does not appear to be infected and i t is intact. The area of her pannus that is dependent has significant edema and some superf icial skin breakdown from how she has been caring for it. There is also some tissue current ly stuck to some of the skin because she was using that as a barrier. I cleansed the area r easonably well, did not remove all of the stuck tissue as she can do that tonight in the delores wer. I took an image of the wound and it is under the media tab and available for review Genitourinary: General: Normal vulva. Vagina: No vaginal discharge or erythema. Comments: External vulvar area appears mostly unaffected by the issue on the abdomen, th ere is no apparent discharge or significant lochia. Internal exam not performed Skin: General: Skin is warm and dry. Psychiatric: Behavior: Behavior normal. Thought Content: Thought content normal. Assessment/Plan: Tinea cruris (Primary) Comments: October 17, 2019, some evidence of tinea cruris in her pannus fold and groin, antifungal rec ommended. Image taken and can be seen in the media tab Overview: October 17, 2019, some evidence of tinea cruris in her pannus fold and groin, antifungal rec ommended. Image taken and can be seen in the media tab Orders: - clotrimazole (LOTRIMIN) 1% cream; Apply twice daily to affected area Dispense: 24 g; Refill: 1 Allergic reaction to chemical substance, accidental or unintentional, subsequent encounter Comments: 10/17/2019, pt had a rxnto the abdominal prep solution at time of her , it has now w orsened and she has issues w/ her pannus fold, no bactera infection Overview: 10/17/2019, pt had a rxnto the abdominal prep solution at time of her , it has now w orsened and she has issues w/ her pannus fold, no bactera infection Discussed inflamed and angry skin reaction from prep solution for her . Dependent edema and some breakdown of the skin but the wound of the is intact I would like her to shower and gently wash the area, lay down and dry it and perhaps blow d ryer on cool. When dry I would like her to apply some anesthetic type cream to the painful areas. The lateral margins appear to have an early yeast infection as well so I would like her to use an [id number] yeast medication for that if her insurance does not cover the antifu ngal that we sent in. Patient is verbalized understanding about all this There is an image in the media tab demonstrating the degree of inflammation, induration, no open breakdown of some of her skin, it also shows a intact Pfannenstiel incision. Discussed using OTC lidocaine cream and or recticaine. Pt expressed understanding and is in agreement to the above treatment plan. 35 min required for this visit. More than 50% spent with face to face care, counseling and/ or coordination of care. This is outside the scope of standard global care. "I, , personally performed the services described in this documentation, as sc ribed by Melissa HENRY in my presence, and is both accurate and complete." SaMelissa fisher M [facility] - 10/17/2019 2:10 PM PSTFormatting of this note might be different from arline perrin. Ancillary Note Patient ID: Hannah Reddy is a 29 y.o. . Preliminary Data (patient reported): Hannah presents today with possible infected incision. Reports there is a lot of drainage coming from the incision with odor, hot to the touch and states her abdomen is covered in hives. Is requesting a refill on Oxycodone, states she was given and Rx for 12 pills and is out of those at this time. BP 118/68 | Pulse 64 | Wt 95.3 kg (210 lb 1.6 oz) | SpO2 100% | Yes | BM I 33.71 kg/m Review of Systems Constitutional: Negative for activity change, appetite change, chills, fatigue, fever and u nexpected weight change. Respiratory: Negative for cough and shortness of breath. Cardiovascular: Negative for chest pain and leg swelling. Gastrointestinal: Negative for abdominal distention, abdominal pain, blood in stool and rec yue pain. Genitourinary: Positive for pelvic pain and vaginal bleeding. Negative for decreased urine volume, difficulty urinating, dyspareunia, dysuria, flank pain, frequency, genital sores, he maturia, menstrual problem, urgency, vaginal discharge and vaginal pain. Neurological: Negative for dizziness, syncope, weakness, numbness and headaches. All other systems reviewed and are negative. Menstrual History: OB History 3 Para 3 Term 3 0 AB 0 Living 3 SAB 0 TAB 0 Ectopic 0 Molar 0 Multiple 0 Live Births 3 No LMP recorded. Recommendations from Health Maintenance / Immunizations Due: Health Maintenance Due Topic Cervical Cancer Screening (Pap) Urine Drug Screening Specialty Comments on SnapShot: No specialty comments available. Patient Care Team: Physician No as PCP - General docume nted in this encounter Plan of Treatment Not on filedocumented as of this encounter Visit Diagnoses + + | Diagnosis | + + | Allergic reaction to chemical substance, accidental or unintentional, subsequent | | encounter - Primary | + + | Tinea cruris Dermatophytosis of groin and perianal area | + + documented in this encounter
--- OUTSIDE RECORDS SUMMARY | ~2020-06-02 | XMS | Encounter Summary ---
Demographics + + + | Address | [address] | | | [place] [address] | + + + | Home Phone [...] + + + | Author | [facility] | | | and Hanyana | + + + | Organization | [facility] | | [...] Team Providers + +------+ + | Care Market Manager Name | Role | Phone | + +------+ + | No, Physician | PCP | Unavailable | + +------+ + Encounter Details +--------+ + + + + | Date | Type | Department | Care Team | Description | +--------+ + + + + | 10/07/ | Routine | [facility] | Durga Lozada | GA: 37w0d | | 2019 | | [facility] | MD [address] | | | | | [facility] | [address] | | | | | [address] | [place] [address] | | | | | [address] [place], | [phone] | | | | | [place] [address] | | | | | | [phone] | | | +--------+ + + + [...] + + + | Blood Pressure | 116/74 | 10/07/2019 9:33 AM | | | | | PST [...] + + + + | Weight | 97.3 kg (214 lb 9.6 | 10/07/2019 9:33 AM | | | | oz) | PST | | + + + + + | Height | - | - | | + + + + + | Body Mass Index | 34.64 | 03/07/2019 11:27 AM | | | | | PDT | | + + + + + documented in this encounter Progress Notes Durga Lozada MD - 10/07/2019 9:30 AM PST Complaints: pelvic pressure, contractions and spotting. Denies VB, LoF, consistent cx. Discussed signs of labor. Discussed labor questions and pain management. F/U in 1w. Repeat section is scheduled for October [address] Garcia Patient Active Problem List Diagnosis Date Noted Excessive growth affecting management of in third trimester 08/05/2019 Priority: High Supervision of high risk , antepartum 07/08/2019 Priority: High Overview Note: (last update: 10/08/2019) Patient is high risk due to history of prior delivery Previous delivery, antepartum 03/19/2019 Priority: High Overview Note: (last update: 05/30/2019) Operation Report dated 05/14/2018. [id number], Arrest of Dilation. Primary Low Transverse Section Desires (vaginal after ) trial 03/19/2019 Priority: High Overview Note: (last update: 10/08/2019) Based on recent obstetrical visit patient has opted for repeat section and this was scheduled for October [address] Garcia Short interval between pregnancies affecting , antepartum 03/19/2019 History of acute PID 02/28/2017 I, Dr. Lozada, personally performed the services described in this documentation, as sc ribed by CARL Mike in my presence, and it is both accurate and complete. Anahi Hudson I Vt dical Conservation Educator - 10/07/2019 9:30 AM [id number] BP 116/74 | Wt 97.3 kg (214 lb 9.6 oz) | BMI 34.64 kg/m TW.7 kg (34 lb 9.6 oz) IW lb Concerns: Pelvic pressure, contractions, vaginal spotting GBS is negative 11:3 9 AM PSTdocumented in this encounter Plan of Treatment Not on filedocumented as of this encounter Visit Diagnoses + + | Diagnosis | + + | Supervision of high risk , antepartum - Primary | + + | Previous delivery, antepartum | + + | Desires (vaginal after ) trial Previous delivery, | | unspecified as to episode of care or not applicable | + + documented in this encounter"
--- OUTSIDE RECORDS SUMMARY | ~2020-06-02 | XMS | Encounter Summary ---
Demographics + + + | Address | [address] | | | [place] [address] | + + + | Home Phone | | + + + | Preferred Language | Unknown | + + + | Marital Status | Single | + + + | Pentecostal Affiliation | 1041 | + + + | Race | White | + + + | Ethnic Group | Not or | + + + Author + + + | Author | [facility] | | | and Hanyana | + + + | Organization | [facility] | | [...] Team Providers + +------+ + | Care Care Assistant Name | Role | Phone | + +------+ + | Unknown, Doctor | PCP | | + +------+ + Encounter Details +--------+ + + + + | Date | Type | Department | Care Team | Description | +--------+ + + + + | 02/13/ | Orders Only | [facility] | Phil Sam, | | | 2016 | | URGENT CARE XRAY | [facility] [address] | | | | | [address] | [facility] [place] | | | | | [facility] [place] | [address] | | | | | [address] | | | | | | [phone] | | | +--------+ + + + [...] XR CHEST 2 VIEWS | Routin | 02/13/2017 | | Results for this | | | e | 11:15 AM | | procedure are in the | | | | PDT | | results section. | + +--------+ + + + documented in this encounter Results XR Chest 2 Vws (02/13/2017 11:15 AM PDT) + + | Specimen | + + | | + + + + + | Impressions | Performed At | + + + | 1. Mild bronchial wall thickening could represent bronchitis or | | | reactive airway disease. | | + + + + + + | Narrative | Performed At | + + + | [facility] XR CHEST 2 VIEW FRONTAL AND LATERAL 02/13/2017 | | | 11:15 AM HISTORY: 27 years. Female. Persistent cough, | | | bronchitis TECHNIQUE: XR CHEST 2 VIEW FRONTAL AND LATERAL. 2 | | | view(s) obtained. COMPARISON: None. FINDINGS: Normal cardiac | | | size. Mild diffuse bronchial wall thickening. No airspace | | | consolidation. No pleural effusion or pneumothorax. No pulmonary | | | nodules or masses. Mild pectus excavatum. No acute fracture. Normal | | | visualized portion of abdomen. | | + + + + + | Procedure Note | + + | Harry Gonzáles Conversion - 06/06/2019 7:17 PM PDT [facility] CHEST 2 VIEW FRONTAL | | AND LATERAL02/13/2017 11:15 AM HISTORY:27 years. Female. Persistent cough, bronchitis | | TECHNIQUE:XR CHEST 2 VIEW FRONTAL AND LATERAL. 2 view(s) obtained. COMPARISON:None. | | FINDINGS:Normal cardiac size. Mild diffuse bronchial wall thickening. No airspace | | consolidation. No pleural effusion or pneumothorax. No pulmonary nodules or masses. Mild | | pectus excavatum. No acute fracture. Normal visualized portion of abdomen. IMPRESSION: | | 1. Mild bronchial wall thickening could represent bronchitis or reactive airway | | disease. | |XR CHEST 2 VIEW FRONTAL AND LATERAL. 2 view(s) obtained. | | | |COMPARISON: | |None. | | | |FINDINGS: | |Normal cardiac size. Mild diffuse bronchial wall thickening. No airspace consolidation. No pleural effusion or pneumothorax. No pulmonary nodules or masses. Mild pectus excavatum. No acute fracture. Normal visualized portion of abdomen. | | | |IMPRESSION: | |1. Mild bronchial wall thickening could represent bronchitis or reactive airway disease. | | | | | + + documented in this encounter Visit Diagnoses Not on filedocumented in this encounter"
--- OUTSIDE RECORDS SUMMARY | ~2020-06-02 | XMS | Encounter Summary ---
Demographics + + + | Address | [address] | | | [place] [address] | + + + | Home Phone | | + + + | Preferred Language | Unknown | + + + | Marital Status | Single | + + + | Tenriism Affiliation | 1041 | + + + | Race | White | + + + | Ethnic Group | Not or | + + + Author + + + | Author | [facility] | | | and Hanyana | + + + | Organization | [facility] | | [...] Team Providers + +------+ + | Care Dispatcher Service Or Work Name | Role | Phone | + +------+ + | No, Physician | PCP | Unavailable | + +------+ + Reason for Visit + +--------+ + | Reason | Onset | Comments | | | Date | | + +--------+ + | Appointment | 10/17/ | Call to pt to schedule appt | | | 2020 | | + +--------+ + Encounter Details +--------+ + + + + | Date | Type | Department | Care Team | Description | +--------+ + + + + | 10/17/ | Telephone | [facility] | Candida Gary, | Appointment (Call to | | 2019 | | ASSOCIATED | RN | pt to schedule | | | | [facility] | | appt) | | | | [address] | | | | | | [address] [place], | | | | | | [place] [address] | | | | | | [phone] | | | +--------+ + + + [...] this encounter Miscellaneous Notes Telephone Encounter - Candida Gary RN - 10/18/2019 10:34 AM PSTPt was seen yesterday by Dr Lozada. eleph one Encounter - Candida Gary RN - 10/17/2019 8:16 AM PSTFormatting of this note might b e different from the original. Per staff message from Dr Mariscal: "Please schedule patient to be seen tomorrow for urgent follow up - wound infection/drainag e post-op. Antibiotics sent in today when she came in from appointment". Call to pt at her contact #. Went directly to VM box. Message was left for pt to let her know that appt is needed and that she is tentatively scheduled at 1500 this afternoon with Radha Lozada. To give us a call back to let us know if this works for her or not. documented in this en counter Plan of Treatment Not on filedocumented as of this encounter Visit Diagnoses Not on filedocumented in this encounter
--- OUTSIDE RECORDS SUMMARY | ~2020-06-02 | XMS | Encounter Summary ---
Demographics + + + | Address | [address] | | | [place] [address] | + + + | Home Phone | | + + + | Preferred Language | Unknown | + + + | Marital Status | Single | + + + | Sikh Affiliation | 1041 | + + + [...] Team Providers + +------+ + | Care Junior Marketing Associate Name | Role | Phone | + +------+ + | No, Physician | PCP | Unavailable | + +------+ + Encounter Details +--------+ + + + + | Date | Type | Department | Care Team | Description | +--------+ + + + + | 10/16/ | Orders Only | [facility] | Michael Mariscal | Wound cellulitis | | 2020 | | ASSOCIATED | MD [address] | after surgery | | | | [facility] | [address] | (Primary Dx) | | | | [address] | [facility] [place] [address] | | | | | [address] [place], | [phone] | | | | | [place] [address] | | | | | | [phone] | | | +--------+ + + + [...] | Diagnosis | + + | Wound cellulitis after surgery - Primary Other postoperative infection | + + documented in this encounter"
--- OUTSIDE RECORDS SUMMARY | ~2020-06-02 | XMS | Encounter Summary ---
Demographics + + + | Address | [address] | | | [place] [address] | + + + | Home Phone [...] Author + + + | Author | [facility] | | | and Hanyana | + + + | Organization | [facility] | | | [...] Team Providers + +------+ + | Care Director Regulatory Agency Name | Role | Phone | + [...] | +--------+ + + + + | 09/16/ | Routine | [facility] | Marisela Garcia | GA: 34w0d | | 2019 | | ASSOCIATED | MD [address] | | | | | [facility] | [address] | | | | | [address] | [place] [address] | | | | | [address] [place], | [phone] | | | | | [place] [address] | | | | | | [phone] | | | +--------+ + + + [...] + + + | Blood Pressure | 116/68 | 09/16/2019 9:37 AM | | | | | PST [...] + + + + | Weight | 96.6 kg (213 lb) | 09/16/2019 9:37 AM | | | | | PST | | + + + + + | Height | - | - | | + + + + + | Body Mass Index | 34.38 | 03/07/2019 11:27 AM | | | | | PDT | | + + + + + documented in this encounter Progress Notes Jose, Marisela Summers MD - 09/16/2019 9:30 AM PSTPt denies any contractions, leaking, bleeding. Good movements. Normal symptoms of 3rd trimester discussed. PTL precautions. Complains of headaches almost daily. She has history of migraines and would take ibuprofen prior to . Since she has not been taking her ibuprofen. We have tried Tylenol 1000 mg at a time along with 2 tablets of Esgic and hydroxyzine as needed but she re ports that nothing is working. She is also tried taking some caffeine. We discussed the us e of sumatriptan and pros and cons discussed. Patient would like to defer it at this time. Discussed narcotics as a last resort but deferred at this time. Ultrasound scheduled for next appointment We discussed contraception options -ParaGard IUD Air Cargo Specialist decided Labor process discussed - consents signed prior Vaccines done Continue DF F/U 2w Valerie Ryan, Suction Dredge Dumping Supervisor - 09/16/2019 9:30 AM [id number] 34w0d BP 116/68 | Wt 96.6 kg (213 lb) | BMI 34.38 kg/m TW kg (33 lb) IWlb Concerns: 1.) Still having daily headaches after given hydroxyzine and Esgic. Has been bedridden and unable to get out of bed. Air Cargo Specialist: Kiana riggs [place]. do cumented in this encounter Plan of Treatment Not on filedocumented as of this encounter Visit Diagnoses + + | Diagnosis | + + | Supervision of high risk , antepartum - Primary | + + | Previous delivery, antepartum | + + documented in this encounter"
--- OUTSIDE RECORDS SUMMARY | ~2020-06-02 | XMS | Encounter Summary ---
Demographics + + + | Address | [address] | | | [place] [address] | + + + | Home Phone | | + + + | Preferred Language | Unknown | + + + | Marital Status | Single | + + + | Amish Affiliation | 1041 | + + + [...] Team Providers + +------+ + | [facility] Office Supervisor Name | Role | Phone | [...] | +--------+ + + + + | 09/02/ | Routine | [facility] | Durga Lozada | GA: 32w0d | | 2019 | | ASSOCIATED | MD [address] | | | | | [facility] | [address] | | | | | [address] | [place] [address] | | | | | [address] [place], | [phone] | | | | | [place] [address] | | | | | | [phone] | | | +--------+ + + + [...] + + + | Blood Pressure | 128/74 | 09/02/2019 11:22 AM | | | | | PST [...] + + + + | Weight | 96.2 kg (212 lb) | 09/02/2019 11:22 AM | | | | | PST | | + + + + + | Height | - | - | | + + + + + | Body Mass Index | 34.22 | 03/07/2019 11:27 AM | | | | | PDT | | + + + + + documented in this encounter Patient Instructions Patient Instructions Nia Garcia, Laboratory Clerk - 09/02/2019 11:10 AM PST Kick Counts It s normal to worry about your baby s health. One way you can knowyour baby s run g well is to record the baby [...] Count each movement until the baby has [id number]. This can take from 20 minutes t o 2hours. Try to do it at the same time each day. When to call your healthcare provider Call your healthcare providerright awayif you notice any of the following: Your baby moves fewer than 10times [id number] while you re doing kick counts. Your baby moves much less often than on thedays before. You have not felt your baby move all day. Date Last Reviewed: 09/15/[id number] [employer]. [address] [place] [address]. All righ ts reserved. This information is not intended as a substitute for professional medical care. Always follow your healthcare professional's instructions. documented in this encounter Progress Notes Durga Lozada MD - 09/02/2019 11:10 AM PSTI failed to make myself the author the last notes it was cut and pasted into this note: 32W0D TWlbs IWlbs Unable to void at intake Complaints: was seen at [facility] yesterday for abdominal pain. They found casts in her urine and advised to follow up . Recommend collecting urine culture today. There is also leukocyte esterase therefore urine analysis and culture if indicated is ordered Patient is still wanting . Her fist delivery was vaginal and second was . Discussed the importance of kick counts Tdap and Influenza Received at the health department last week Discussed contraception, patient prefers: paragard. F/U in 2w. IDr. Lozada, personally performed the services described in this documentation, as sc ribed by CARL Whiteside in my presence, and it is both accurate and complete.Brian vega signed by Durga Lozada MD at 09/02/2019 11:58 AM Nia Mata Laboratory Clerk - 09/02/2019 11:10 AM [id number] TWlbs IWlbs Unable to void at intake Complaints: was seen at [facility] yesterday for abdominal pain. They found casts in her urine and advised to follow up . Recommend collecting urine culture today. Patient is still wanting . Her fist delivery was vaginal and second was . Discussed the importance of kick counts Tdap and Influenza Received at the health department last week Discussed contraception, patient prefers: paragard. F/U in 2w. I, Dr. Lozada, personally performed the services described in this documentation, as sc ribed by CARL Whiteside in my presence, and it is both accurate and complete.Brian vega signed by Briana Hayden at 09/02/2019 11:57 AM Nia Mata Laboratory Clerk - 09/02/2019 11:10 AM [id number] 32w0d BP 128/74 | Wt 96.2 kg (212 lb) | BMI 34.22 kg/m TW.5 kg (32 lb) IWlbs Concerns:was seen at [facility] yesterday for abdominal pain. She reports that there onl y findings was that she had casts in her urine and was advised to follow up with us. Tdap and Influenza received at the health department last week Contraception list given, considering Paragard documented in this encounter Plan of Treatment Not on filedocumented as of this encounter Procedures + +--------+ + + + | Procedure Name | Priori | Date/Time | Associated Diagnosis | Comments | | | ty | | | | + +--------+ + + + | URINALYSIS, REFLEX | Routin | 09/02/2019 | Acute cystitis | Results for this | | MICROSCOPIC AND/OR | e | 12:09 PM | without hematuria | procedure are in the | | CULTURE | | PST | | results section. | + +--------+ + + + | URINALYSIS, | Routin | 09/02/2019 | | Results for this | | MICROSCOPIC ONLY | e | 12:09 PM | | procedure are in the | | | | PST | | results section. | + +--------+ + + + | CULTURE, URINE | Routin | 09/02/2019 | | Results for this | | | e | 12:09 PM | | procedure are in the | | | | PST | | results section. | + +--------+ + + + documented in this encounter Results Culture, Urine (09/02/2019 12:09 PM PST) + + + + + + | Component | Value | Ref Range | Performed | Pathologist | | | | | At | Signature | + + + + + + | Special | REFLEX FROM [facility] | | REFERENCE | | | Requests | | | LAB | | | | | | [facility] | | | | | | LABORATORY | | + + + + + + | RESULT | 10,000 TO 50,000 | | REFERENCE | | | | CFU/MLMIXED GRAM | | LAB | | | | POSITIVE AND GRAM | | [facility] | | | | NEGATIVE AMOR | | LABORATORY | | + + + + + + | RESULT | NO FURTHER WORKUP | | REFERENCE | | | | | | LAB | | | | | | [facility] | | | | | | LABORATORY | | + + + + + + | RESULT | Testing performed at | | REFERENCE | | | | [facility];[address] [facility] | | LAB | | | | [facility];[address] | | [facility] | | | | [id number]: Testing | | LABORATORY | | | | performed at [facility], [address] | | | | | | [facility], | | | | | | [place] [address] | | | | + + + + + + + + | Specimen | + + | | + + + + + + + | Performing | Address | City/State/Zipcode | Phone Number | | Organization | | | | + + + + + | REFERENCE LAB | [address] [place] [address] | [place] | [phone] | | [facility] | [address] | [address] | | | LABORATORY | | | | + + + + + | REFERENCE LAB | [address] [place] [address] | [place] | | | [facility] | Blvd[address] | [address] | | | LABORATORY | | | | + + + + + Urinalysis, Microscopic Only (09/02/2019 12:09 PM PST) + + + + + + | Component | Value | Ref Range | Performed | Pathologist | | | | | At | Signature | + + + + + + | WBC UA | 6-10 | 0 - 5 /hpf | REFERENCE | | | | | | LAB | | | | | | [facility] | | | | | | LABORATORY | | + + + + + + | Red Blood | 0-2 | 0 - 5 /hpf | REFERENCE | | | Cells, | | | LAB | | | Urine | | | [facility] | | | | | | LABORATORY | | + + + + + + | Squamous | 50-100 | /lpf | REFERENCE | | | Epithelial | | | LAB | | | Cells, | | | [facility] | | | Urine | | | LABORATORY | | + + + + + + | Bacteria, | 1+ (A)Comment: CULTURE | NONE | REFERENCE | | | Urine | TO FOLLOW | | LAB | | | | | | [facility] | | | | | | LABORATORY | | + + + + + + | Mucus, | 1+Comment: Testing | | REFERENCE | | | Urine | performed at [facility];[address] | | LAB | | | | [place] | | [facility] | | | | Bl[address];[place] [address] [address] | | LABORATORY | | + + + + + + + + | Specimen | + + | | + + + + + + + | Performing | Address | City/State/Zipcode | Phone Number | | Organization | | | | + + + + + | REFERENCE LAB | [address] | [place] | [phone] | | [facility] | [address] | [address] | | | LABORATORY | | | | + + + + + | REFERENCE LAB | [address] | [place], [place] | | | [facility] | Bl[address] | [address] | | | LABORATORY | | | | + + + + + Urinalysis, Reflex Microscopic and/or Culture (09/02/2019 12:09 PM PST) + + + + + + | Component | Value | Ref Range | Performed | Pathologist | | | | | At | Signature | + + + + + + | Color, UA | YELLOW | | REFERENCE | | | | | | LAB | | | | | | [facility] | | | | | | LABORATORY | | + + + + + + | Clarity, | CLEAR | | REFERENCE | | | Urine | | | LAB | | | | | | [facility] | | | | | | LABORATORY | | + + + + + + | Specific | 1.008 | 1.002 - 1.030 | REFERENCE | | | [place], | | | LAB | | | Urine | | | [facility] | | | | | | LABORATORY | | + + + + + + | Leukocyte | LARGE (A) | NEG | REFERENCE | | | esterase, | | | LAB | | | UA | | | [facility] | | | | | | LABORATORY | | + + + + + + | Nitrite, UA | NEGATIVE | NEG | REFERENCE | | | | | | LAB | | | | | | [facility] | | | | | | LABORATORY | | + + + + + + | Urobilinoge | <1.6 | <1.6 mg/dL | REFERENCE | | | n, Ur | | | LAB | | | | | | [facility] | | | | | | LABORATORY | | + + + + + + | Protein, | NEGATIVE | NEG mg/dL | REFERENCE | | | Urine | | | LAB | | | (mg/dL) | | | [facility] | | | | | | LABORATORY | | + + + + + + | pH, Urine | 8.0 | 5.0 - 8.0 | REFERENCE | | | | | | LAB | | | | | | [facility] | | | | | | LABORATORY | | + + + + + + | Blood, UA | NEGATIVE | NEG | REFERENCE | | | | | | LAB | | | | | | [facility] | | | | | | LABORATORY | | + + + + + + | Ketones, UA | NEGATIVE | NEG mg/dL | REFERENCE | | | | | | LAB | | | | | | [facility] | | | | | | LABORATORY | | + + + + + + | Bilirubin, | NEGATIVE | NEG | REFERENCE | | | UA | | | LAB | | | | | | [facility] | | | | | | LABORATORY | | + + + + + + | Glucose, Ur | NEGATIVE | NEG mg/dL | REFERENCE | | | | | | LAB | | | | | | [facility] | | | | | | LABORATORY | | + + + + + + + + | Specimen | + + | Urine - Urine | | specimen obtained by | | clean catch | | procedure (specimen) | + + + + + + + | Performing | Address | City/State/Zipcode | Phone Number | | Organization | | | | + + + + + | REFERENCE LAB | [address] | [place] | [phone] | | [employer] | [address] | [address] | | | LABORATORY | | | | + + + + + | REFERENCE LAB | [address] [facility] | [place], [place] | | | [employer] | [address] | [address] | | | LABORATORY | | | | + + + + + documented in this encounter Visit Diagnoses + + | Diagnosis | + + | Acute cystitis without hematuria - Primary Acute cystitis | + + | Supervision of high risk , antepartum | + + | Short interval between pregnancies affecting , antepartum | + + | Desires (vaginal after ) trial Previous delivery, | | unspecified as to episode of care or not applicable | + + documented in this encounter"
--- OUTSIDE RECORDS SUMMARY | ~2020-06-02 | XMS | Encounter Summary ---
Demographics + + + | Address | [address] | | | [place] [address] | + + + | Home Phone | | + + + | Preferred Language | Unknown | + + + | Marital Status | Single | + + + | Buddhism Affiliation | [id number] | + + + [...] Team Providers + +------+ + | Care First Assistant Name | Role | Phone | + +------+ + PCP | Unavailable | + +------+ + Encounter Details +--------+ + + + + | Date | Type | Department | Care Team | Description | +--------+ + + + + | 09/02/ | Emergency | [facility] | Darrell Sow | Chronic bronchitis | | 2017 | | [facility] | DO [address] | with acute | | | | [facility] | [place] | exacerbation (HCC); | | | | [address] | [place], [place] | Wheezing; Pleurisy | | | | [place] | [address] | | | | | [address] | [phone] | | | | | [phone] | | | +--------+ + + + [...] + + + | Blood Pressure | 124/76 | 09/02/2017 2:26 PM | | | | | PST | | + + + + + | Pulse | 87 | 09/02/2017 2:26 PM | | | | | PST | | + + + + + | Temperature | 36.7 C (98.1 F) | 09/02/2017 2:26 PM | | | | | PST | | + + + + + | Respiratory Rate | 18 | 09/02/2017 2:26 PM | | | | | PST | | + + + + + | Oxygen Saturation | - | - | | + + + + + | Inhaled Oxygen | - | - | | | Concentration | | | | + + + + + | Weight | 74.8 kg (165 lb) | 09/02/2017 2:26 PM | | | | | PST | | + + + + + | Height | 167.6 cm (5' 6") | 09/02/2017 2:26 PM | | | | | PST | | + + + + + | Body Mass Index | 26.63 | 09/02/2017 2:26 PM | | | | | PST | | + + + + + documented in this encounter ED Notes Conversion Transaction, Provider Unknown - 09/02/2017 1:41 PM PSTFormatting of this note m ight be different from the original. ED Notes by Roxana Willis RN at 09/02/17 1341 Author: Roxana Willis RN Service: (none) Author Type: Registered Nurse Filed: 09/02/17 134 Date of Service: 09/02/171340 Status: Signed Vice President Of Academic Affairs: Roxana Willis RN (Registered Nurse) MLP at bedside. Rxoana Willis RN 09/02/17 134 onver britney Transaction, Provider Unknown - 09/02/2017 1:30 PM PST ED Notes by Roxana Willis RN at 09/02/17 1330 Author: Roxana Willis RN Service: (none) Author Type: Registered Nurse Filed: 09/02/17 1334 Date of Service: 09/02/171329 Status: Signed Vice President Of Academic Affairs: Roxana Willis RN (Registered Nurse) MLP notified of patient status. Continued c/o chest pain and wheezing. Orders obtained. Roxana Willis RN 09/02/17 1337 onver britney Transaction, Provider Unknown - 09/02/2017 12:30 PM PST ED Notes by Roxana Willis RN at 09/02/17 1230 Author: Roxana Willis RN Service: (none) Author Type: Registered Nurse Filed: 09/02/17 0275 Date of Service: 09/02/17 1230 Status: Signed Vice President Of Academic Affairs: Roxana Willis RN (Registered Nurse) Patient updated on plan of care, medications administered and placed on cardiac monitors/pu lse oximetry. Notified of need for urine. Roxana Willis RN 09/02/17 1249 Deneen Barahona ARNP - 09/02/2017 12:24 PM PSTFormatting of this note might be different from t he original. ED Provider Notes by ARLENE Suarez at 09/02/17 1224 Author: ARLENE Suarez Service: Free Standing ED Author Type: Nurse Fito min Filed: 09/02/171420 Date of Service: 09/02/171223 Status: Attested Vice President Of Academic Affairs: ARLENE Suarez (Nurse Practitioner) Cosigner: Darrell Sow DO at 09/02/171428 Attestation signed by Darrell Sow DO at 09/02/171428 I have reviewed the patient's chart. I was available for consultation during the care of the patient. Darrell Sow DO [facility] [place] History of Present Illness Chief Complaint Chief Complaint Patient presents with Chest Pain Patient Vitals for the past 24 hrs: BP Temp Temp src Pulse Resp SpO2 Height Weight 09/02/17 1400 119/70 - - 98 24 98 % - - 09/02/17 1330 131/84 - - 86 21 99 % - - 09/02/17 1325 131/84 - - 92 20 100 % - - 09/02/17 1300 144/78 - - 88 18 99 % - - 09/02/17 1250 144/78 - - 98 19 98 % - - 09/02/17 1209 163/82 98.6 F (37 C) Oral 99 18 97 % 1.676 m (5' 6") 74.8 kg (165 lb) Vital signs show hypertension, otherwise normal. Patient Identification [id number] Patient complains of chest pain and wheezing. She reports she had pneumonia recently. She used her inhaler an hour ago and continues to have shortness of breath. She has had a pr oductive cough with clear mucous. She report she has an appointment with the lung specialist scheduled. She has not used any other medications. She denies ear pain, throat pain, vomiti ng, diarrhea, fever and abdominal pain. She reports nausea, shortness of breath, cough and w heezing. The history is provided by the patient. No educational speech language clinician was used. Chest Pain Episode onset: 2 days ago. Chest pain occurs constantly. The chest pain is unchanged. The p ain is associated with breathing and coughing. The quality of the pain is described as achin g. The pain does not radiate. Chest pain is worsened by certain positions and deep breathing . Primary symptoms include shortness of breath, cough, wheezing and nausea. Pertinent negati ves for primary symptoms include no fever, no fatigue, no syncope, no palpitations, no abdom inal pain, no vomiting, no dizziness and no altered mental status. The shortness of breath began 2 days ago. The shortness of breath developed at rest. The sh ortness of breath is moderate. The patient's medical history does not include COPD or asthma . The cough began 2 days ago. The cough is productive. The sputum is clear. Wheezing began 2 days ago. The wheezing has been unchanged since its onset. The patient's m edical history does not include asthma or COPD. Pertinent negatives for associated symptoms include no claudication, no diaphoresis, no low er extremity edema, no near-syncope, no numbness, no orthopnea, no paroxysmal nocturnal dysp katy and no weakness. She tried beta-agonist inhalers for the symptoms. There are no known ri sk factors. Past medical history comments: pneumonia Patient presented to the Emergency Department by: Car Past Medical History Diagnosis Date Kidney stones Past Surgical History Procedure Laterality Date CHOLECYSTECTOMY 2012 FOOT SURGERY Left 2005 Prior to Admission medications Medication Sig Start Date End Date Taking? Authorizing Provider albuterol (PROVENTIL) (2.5 MG/3ML) 0.083% nebulizer solution Take 3 mLs by nebulization nasim ry 4 (four) hours as needed for Wheezing or Shortness of Breath (Cough). 07/08/17 07/08/18 ARLENE Jordan albuterol (VENTOLIN HFA) 108 (90 Base) MCG/ACT inhaler Inhale 1-2 puffs into the lungs ever y 4 (four) hours as needed for Wheezing, Shortness of Breath or Cough. 07/08/17 07/08/18 ARLENE Leary ALBUTEROL IN Inhale into the lungs. Historical Provider methylPREDNISolone 4 MG dose pack Take 4 mg by mouth daily. Follow package directions. 07/0807/08/18 ARLENE Centeno Allergies Allergen Reactions Keflex [Cephalexin] Hives Penicillins Hives Social History Social History Marital status: Single Spouse name: N/A Number of children: N/A Years of education: N/A Occupational History Not on file. Social History Main Topics Smoking status: Current Every Day Smoker Packs/day: 0.25 Years: 7.00 Smokeless tobacco: Never Used Alcohol use Yes Comment: occasional Drug use: No Sexual activity: Yes Partners: Male control/ protection: Condom Other Topics Concern Not on file Social History Narrative No narrative on file History reviewed. No pertinent family history. ROS Review of Systems Constitutional: Negative. Negative for diaphoresis, fatigue and fever. HENT: Negative. Eyes: Negative. Respiratory: Positive for cough, shortness of breath and wheezing. Negative for apnea, chok ing and chest tightness. Cardiovascular: Positive for chest pain. Negative for palpitations, orthopnea, claudication , leg swelling, syncope and near-syncope. Gastrointestinal: Positive for nausea. Negative for abdominal distention, abdominal pain, a nal bleeding, blood in stool, constipation and vomiting. Musculoskeletal: Negative. Skin: Negative. Allergic/Immunologic: Negative. Neurological: Negative. Negative for dizziness, weakness and numbness. Psychiatric/Behavioral: Negative. Physical Exam Constitutional: She is oriented to person, place, and time. She appears well-developed and well-nourished. No distress. HENT: Head: Normocephalic and atraumatic. Right Ear: External ear normal. Left Ear: External ear normal. Nose: Nose normal. Mouth/Throat: Oropharynx is clear and moist. No oropharyngeal exudate. Eyes: Conjunctivae and EOM are normal. Pupils are equal, round, and reactive to light. Righ t eye exhibits no discharge. Left eye exhibits no discharge. No scleral icterus. Neck: Normal range of motion. Neck supple. Cardiovascular: Normal rate, regular rhythm and normal heart sounds. No murmur heard. Pulmonary/Chest: She is in respiratory distress. She has wheezes. She exhibits tenderness. Tender with palpation of left upper chest, reproduces symptoms. Abdomina/Gl: Soft. Bowel sounds are normal. She exhibits no distension. There is no tendern ess. Musculoskeletal: Normal range of motion. She exhibits no edema, tenderness or deformity. Lymphadenopathy: She has no cervical adenopathy. Neurological: She is alert and oriented to person, place, and time. Skin: Skin is warm and dry. Capillary refill takes less than 2 seconds. She is not diaphore tic. No erythema. Psychiatric: Anxious, tearful. rhythmic twitching of lower lip and bilateral hands. ED Course as of Sep 02 1421 Sat Sep 02, 2017 1214 EKG reviewed. NSR. No ST elevation. Rate 84 1217 Patient complains of chest pain and wheezing. She reports she had pneumonia recently. She used her inhaler an hour ago and continues to have shortness of breath. She has had a pr oductive cough with clear mucous. She report she has an appointment with the lung specialist scheduled. She has not used any other medications. She denies ear pain, throat pain, vomiti ng, diarrhea, fever and abdominal pain. She reports nausea, shortness of breath, cough and w heezing. 1219 DDx includes but is not limited to pneumonia, asthma, seasonal allergies, ND, pleural effusion, PE, pericardial effusion, URI, drug abuse vs others. 1331 Reviewed Preg Test, Ur: NEGATIVE 1331 Reviewed Leukocyes, UA: NEGATIVE 1331 WBC: 10.75 1331 RBC: (!) 5.19 1331 reviewed HGB: (!) 15.8 1332 reviewed D DIMER, QUANTITATIVE: 0.20 1332 reviewed TROPONIN I: <0.04 1332 THC: (!) POSITIVE 1332 OPIATES: (!) POSITIVE 1353 Discussed all results with patient. She is feeling better since breathing treatment. S he reports her chest pain is a little better but still hurts. She is agreeable to second neb ulizer treatment and Toradol. Discussed home care instructions and follow up with Pulmonolog ist as scheduled. 1421 Hypertension resolved over the course of the visit. She reports she already has albute rol inhaler and nebulizer vials at home. Procedures Medical Decision Making and Emergency Department Course ED Department Course ED Course as of Sep 02 1421 Sat Sep 02, 2017 1214 EKG reviewed. NSR. No ST elevation. Rate 84 1217 Patient complains of chest pain and wheezing. She reports she had pneumonia recently. She used her inhaler an hour ago and continues to have shortness of breath. She has had a pr oductive cough with clear mucous. She report she has an appointment with the lung specialist scheduled. She has not used any other medications. She denies ear pain, throat pain, vomiti ng, diarrhea, fever and abdominal pain. She reports nausea, shortness of breath, cough and w heezing. 1219 DDx includes but is not limited to pneumonia, asthma, seasonal allergies, ND, pleural effusion, PE, pericardial effusion, URI, drug abuse vs others. 1331 Reviewed Preg Test, Ur: NEGATIVE 1331 Reviewed Leukocyes, UA: NEGATIVE 1331 WBC: 10.75 1331 RBC: (!) 5.19 1331 reviewed HGB: (!) 15.8 1332 reviewed D DIMER, QUANTITATIVE: 0.20 1332 reviewed TROPONIN I: <0.04 1332 THC: (!) POSITIVE 1332 OPIATES: (!) POSITIVE 1353 Discussed all results with patient. She is feeling better since breathing treatment. S he reports her chest pain is a little better but still hurts. She is agreeable to second neb ulizer treatment and Toradol. Discussed home care instructions and follow up with Pulmonolog ist as scheduled. 1421 Hypertension resolved over the course of the visit. She reports she already has albute rol inhaler and nebulizer vials at home. Records Reviewed Old medical records. Nursing notes. Labs & Radiology Results Laboratory Evaluation Results Procedure Component Value Ref Range Date/Time Urine DOA screen (PLUS TCA) (Drug 8) [[id number]] (Abnormal) Collected: 09/02/17 1259 Order Status: Completed Specimen: Urine, Clean Catch Updated: 09/02/17 1329 PCP NEGATIVE NEGATIVE BENZODIAZEPINE NEGATIVE NEGATIVE COCAINE NEGATIVE NEGATIVE AMPHETAMINE NEGATIVE NEGATIVE THC POSITIVE (A) NEGATIVE OPIATES POSITIVE (A) NEGATIVE BARBITUATES NEGATIVE NEGATIVE TRICYCLIC ANTIDEPRESS NEGATIVE NEGATIVE Blood Culture Set 2 [[id number]] Collected: 09/02/17 1305 Order Status: Sent Specimen: Blood from Blood Updated: 09/02/17 1319 Blood Culture Set 1 [[id number]] Collected: 09/02/17 1240 Order Status: Sent Specimen: Blood from Blood Updated: 09/02/17 1318 Urine test (LAB) [[id number]] Collected: 09/02/17 1259 Order Status: Completed Specimen: Urine from Urine, Clean Catch Updated: 09/02/17 131 4 Preg Test, Ur NEGATIVE NEGATIVE Urinalysis (reflex to microscopic) [[id number]] Collected: 09/02/17 1259 Order Status: Completed Specimen: Urine from Urine, Clean Catch Updated: 09/02/17 131 4 COLOR UA YELLOW CLARITY CLEAR Specific [place], UA 1.010 1.001 - 1.035 LEUKOCYTE ESTERASE NEGATIVE NEGATIVE NITRITE NEGATIVE NEGATIVE UROBILINOGEN 0.2 <1.1 mg/dL PROTEIN NEGATIVE NEGATIVE mg/dL PH,URINE 6.0 4.6 - 8.0 BLOOD NEGATIVE NEGATIVE KETONES NEGATIVE NEGATIVE mg/dL BILIRUBIN NEGATIVE NEGATIVE GLUCOSE NEGATIVE NEGATIVE mg/dL Troponin I [[id number]] Collected: 09/02/17 1215 Order Status: Completed Specimen: Blood Updated: 09/02/17 1247 TROPONIN I <0.04 0.00 - 0.10 ng/mL Cardiac Panel [[id number]] (Abnormal) Collected: 09/02/17 1215 Order Status: Completed Updated: 09/02/17 1247 WBC 10.75 3.80 - 11.00 K/uL RBC 5.19 (H) 3.70 - 5.10 M/uL HGB 15.8 (H) 11.3 - 15.5 g/dL HCT 45.9 34.0 - 46.0 % MCV 88.3 80.0 - 100.0 fl MCH 30.4 27.0 - 34.0 pg MCHC 34.4 32.0 - 35.5 g/dL RDW SD 41.6 37 - 53 fl PLT 190 150 - 400 K/uL MPV 7.6 fl DIFF TYPE AUTOMATED NEUTROPHILS 58.12 % LYMPHOCYTES 28.00 % MONOCYTES 4.27 % EOSINOPHILS 8.61 % BASOPHILS 1.00 % NEUTROPHILS ABS 6.25 1.90 - 7.40 K/uL LYMPHOCYTES ABS 3.01 1.00 - 3.90 K/uL MONOCYTES ABS 0.46 0.00 - 0.80 K/uL EOSINOPHILS ABS 0.93 (H) 0.00 - 0.50 K/uL BASOPHILS ABS 0.11 (H) 0.00 - 0.10 K/uL SODIUM 140 135 - 145 mmol/L POTASSIUM 3.4 (L) 3.5 - 4.9 mmol/L CHLORIDE 106 99 - 109 mmol/L CO2 25 23 - 32 mmol/L ANION GAP AGAP 12 5 - 20 mmol/L GLUCOSE 98 65 - 99 mg/dL BUN 11 8 - 25 mg/dL CREATININE 0.93 0.50 - 1.00 mg/dL BUN/CREAT 12 CALCIUM 9.0 8.5 - 10.5 mg/dL TOTAL PROTEIN 7.4 6.3 - 8.2 g/dL Albumin 4.1 3.6 - 5.0 g/dL GLOBULIN 3.3 1.3 - 4.9 g/dL A/G 1.2 1.0 - 2.4 TBIL 0.3 0.1 - 1.5 mg/dL ALK PHOS 67 35 - 115 U/L AST 15 10 - 45 U/L ALT 28 10 - 65 U/L EGFR >60 >60 mL/min/1.73m2 CPK 96 30 - 240 U/L INR 0.9 APTT 26 23 - 32 seconds MMB <0.5 (L) 0.5 - 3.6 ng/mL CK-MB Index UNABLE TO CALCULATE D Dimer,Quantitative [[id number]] Collected: 09/02/17 1215 Order Status: Completed Specimen: Blood Updated: 09/02/17 1240 D DIMER, QUANTITATIVE 0.20 0.19 - 0.50 mg/L FEU CBC with differential [[id number]] Collected: 09/02/17 1219 Order Status: Sent Specimen: Blood Comprehensive metabolic panel [[id number]] Collected: 09/02/17 1219 Order Status: Sent Specimen: Blood Radiology and EKG Evaluation Imaging Results XR chest PA and lateral (Final result) Result time 09/02/17 12:58:15 Final result by Edmund Waters MD (09/02/17 12:58:15) Impression: 1. Slight central bronchial wall thickening with subtle central interstitial prominence a gain noted. Correlate for recurrent acute versus chronic bronchitis. Narrative: HISTORY: Chest pain. COMPARISON: 07/08/17. TECHNIQUE: PA and lateral films of the chest. FINDINGS: The heart size is normal. Lung volumes are slightly low. There may be slight central bronch ial wall thickening, probably unchanged. Correlate for acute versus chronic bronchitis. No i nfiltrates. No effusions. The heart size is normal. Diagnosis & Disposition ED Diagnoses Final diagnoses Chronic bronchitis with acute exacerbation (HCC) Wheezing Pleurisy Disposition: ED Disposition ED Disposition Condition Comment Discharge Stable Follow-up Information Follow up With Specialties Details Why Contact Info [facility] [place] 1 day Discharge Medications: New Prescriptions CETIRIZINE (ZYRTEC) 10 MG TABLET Take 1 tablet by mouth daily. GUAIFENESIN (MUCINEX) 600 MG 12 HR TABLET Take 2 tablets by mouth 2 (two) times daily. NAPROXEN (NAPROSYN) 500 MG TABLET Take 1 tablet by mouth 2 (two) times daily. For pain Deneen Vinson NP 09/02/17 142 Darrell Sow DO 09/02/17 142 onversion Trans action, Provider Unknown - 09/02/2017 12:11 PM PST ED Triage Notes by Roxana Willis RN at 09/02/17 121 Author: Roxana Willsi RN Service: (none) Author Type: Registered Nurse Filed: 09/02/171211 Date of Service: 09/02/171210 Status: Signed Vice President Of Academic Affairs: Roxana Willis RN (Registered Nurse) Patient in c/o 2 days of left upper chest pain, reports feeling "like its swollen above my heart." + shortness of breath, + nausea. States she recently recovered from pneumonia but [place] s had persistent cough and intermittently coughs up blood. docume nted in this encounter Plan of Treatment Not on filedocumented as of this encounter Procedures + +--------+ + + + | Procedure Name | Priori | Date/Time | Associated Diagnosis | Comments | | | ty | | | | + +--------+ + + + | CULTURE, BLOOD, 2ND | STAT | 09/02/2017 | | Results for this | | SPECIMEN (NON-ORD) | | 1:05 PM | | procedure are in the | | | | PST | | results section. | + +--------+ + + + | URINALYSIS WITH | Routin | 09/02/2017 | | Results for this | | MICROSCOPIC IF | e | 12:59 PM | | procedure are in the | | INDICATED | | PST | | results section. | + +--------+ + + + | DOA, TRICYCLICS, | Routin | 09/02/2017 | | Results for this | | URINE, QUANT | e | 12:59 PM | | procedure are in the | | | | PST | | results section. | + +--------+ + + + | HCG, URINE, QUAL | Routin | 09/02/2017 | | Results for this | | | e | 12:59 PM | | procedure are in the | | | | PST | | results section. | + +--------+ + + + | XR CHEST 2 VIEWS | Routin | 09/02/2017 | | Results for this | | | e | 12:51 PM | | procedure are in the | | | | PST | | results section. | + +--------+ + + + | CULTURE, BLOOD | STAT | 09/02/2017 | | Results for this | | | | 12:40 PM | | procedure are in the | | | | PST | | results section. | + +--------+ + + + | HISTORICAL LAB PANEL | Routin | 09/02/2017 | | Results for this | | RESULT | e | 12:15 PM | | procedure are in the | | | | PST | | results section. | + +--------+ + + + | TROPONIN I | Routin | 09/02/2017 | | Results for this | | | e | 12:15 PM | | procedure are in the | | | | PST | | results section. | + +--------+ + + + | D-DIMER | Routin | 09/02/2017 | | Results for this | | | e | 12:15 PM | | procedure are in the | | | | PST | | results section. | + +--------+ + + + | ECG 12 LEAD | Routin | 09/02/2017 | | Results for this | | | e | 12:13 PM | | procedure are in the | | | | PST | | results section. | + +--------+ + + + documented in this encounter Results Culture, Blood, 2nd Specimen (09/02/2017 1:05 PM PST) + + | Specimen | + + | Blood specimen | | (specimen) | + + + + + | Narrative | Performed At | + + + | Specimen Description BLOOD SPECIAL | EXTERNAL LAB | | REQUESTS RAC CULTURE | | | NO GROWTH 6 DAYS | | + + + + +---------+ + + | Performing | Address | City/State/Zipcode | Phone Number | | Organization | | | | + +---------+ + + | EXTERNAL LAB | | | | + +---------+ + + Drugs of Abuse, Tricyclics, Urine, Quant (09/02/2017 12:59 PM PST) + + + + + + | Component | Value | Ref Range | Performed | Pathologist | | | | | At | Signature | + + + + + + | PCP | NEGATIVEComment: | | EXTERNAL | | | | Positive cutoff for PCP | | LAB | | | | = 25 ng/mL | | | | + + + + + + | Benzodiazep | NEGATIVEComment: | | EXTERNAL | | | frieda | Positive cutoff for | | LAB | | | Screen, | BENZO = 300 ng/mL | | | | | Urine | | | | | + + + + + + | Cocaine | NEGATIVEComment: | | EXTERNAL | | | | Positive cutoff for BRE | | LAB | | | | = 300 ng/mL | | | | + + + + + + | Amphetamine | NEGATIVEComment: | | EXTERNAL | | | s | Positive cutoff for AMP | | LAB | | | | = 1000 ng/mL | | | | + + + + + + | Cannabinoid | POSITIVE (A)Comment: | | EXTERNAL | | | s Screen, | Positive cutoff for THC | | LAB | | | Serum | = 50 ng/mL | | | | + + + + + + | Opiates | POSITIVE (A)Comment: | | EXTERNAL | | | | Positive cutoff for OPI | | LAB | | | | = 300 ng/mL | | | | + + + + + + | Barbiturate | NEGATIVEComment: | | EXTERNAL | | | s Screen, | Positive cutoff for PERLA | | LAB | | | Urine | = 300 ng/mL | | | | + + + + + + | TCA Scrn | NEGATIVEComment: | | EXTERNAL | | | | Positive cutoff for TCA | | LAB | | | | = 1000 ng/mLThe above | | | | | | are unconfirmed | | | | | | screening results. | | | | | | These results are to | | | | | | be used only for medical | | | | | | (i.e.,treatment) | | | | | | purposes. Unconfirmed | | | | | | screening results must | | | | | | not be used for | | | | | | non-medical purposes | | | | | | (e.g., employment | | | | | | testing, legal | | | | | | testing).Testing | | | | | | performed at [facility], [address] | [address] | [address] [place], | | | | | | [place] [address] | | | | + + + + + + + + | Specimen | + + | | + + + +---------+ + + | Performing | Address | City/State/Zipcode | Phone Number | | Organization | | | | + +---------+ + + | EXTERNAL LAB | | | | + +---------+ + + , Urine, Qual (09/02/2017 12:59 PM PST) + + + + + + | Component | Value | Ref Range | Performed | Pathologist | | | | | At | Signature | + + + + + + | Preg Test, | NEGATIVEComment: Testing | | EXTERNAL | | | Ur | performed at [facility], [address] | LAB | | | | [address], | | | | | | [place] [address] | | | | + + + + + + + + | Specimen | + + | Urine specimen | | (specimen) | + + + +---------+ + + | Performing | Address | City/State/Zipcode | Phone Number | | Organization | | | | + +---------+ + + | EXTERNAL LAB | | | | + +---------+ + + Urinalysis with Microscopic if Indicated (09/02/2017 12:59 PM PST) + + + + + [...] - 1.035 | EXTERNAL | | | [place], | | | LAB | | | Urine | | | | | + + + + + + | Leukocyte | NEGATIVE | | EXTERNAL | | | Esterase, [...] | | | Urine | performed at [facility], [address] | | [address] | | | | [address], | | | | | | [place] [address] | | | | + + + + + + + + | Specimen | + + | Urine specimen | | (specimen) | + + + +---------+ + + | Performing | Address | City/State/Zipcode | Phone Number | | Organization | | | | + +---------+ + + | EXTERNAL LAB | | | | + +---------+ + + XR Chest 2 Vws (09/02/2017 12:51 PM PST) + + | Specimen | + + | | + + + + + | Impressions | Performed At | + + + | 1. Slight central bronchial wall thickening with subtle central | | | interstitial prominence again noted. Correlate for recurrent acute | | | versus chronic bronchitis. | | + + + + + + | Narrative | Performed At | + + + | HISTORY: Chest pain. COMPARISON: 07/08/17. TECHNIQUE: PA | | | and lateral films of the chest. FINDINGS: The heart size is | | | normal. Lung volumes are slightly low. There may be slight central | | | bronchial wall thickening, probably unchanged. Correlate for acute | | | versus chronic bronchitis. No infiltrates. No effusions. The heart | | | size is normal. | | + + + + + | Procedure Note | + + | Eliecer, Rad Conversion - 05/30/2019 2:18 AM PDT HISTORY:Chest pain. | | COMPARISON:07/08/17. TECHNIQUE:PA and lateral films of the chest. FINDINGS:The heart | | size is normal. Lung volumes are slightly low. There may be slight central bronchial | | wall thickening, probably unchanged. Correlate for acute versus chronic bronchitis. No | | infiltrates. No effusions. The heart size is normal. IMPRESSION: 1. Slight central | | bronchial wall thickening with subtle central interstitial prominence again noted. | | Correlate for recurrent acute versus chronic bronchitis. | | | |FINDINGS: | |The heart size is normal. Lung volumes are slightly low. There may be slight central bronch ial wall thickening, probably unchanged. Correlate for acute versus chronic bronchitis. No i nfiltrates. No effusions. The heart size is normal. | | | |IMPRESSION: | |1. Slight central bronchial wall thickening with subtle central interstitial prominence ag ain noted. Correlate for recurrent acute versus chronic bronchitis. | | | | | + + Culture, Blood (09/02/2017 12:40 PM PST) + + | Specimen | + + | Blood specimen | | (specimen) | + + + + + | Narrative | Performed At | + + + | Specimen Description BLOOD SPECIAL | EXTERNAL LAB | | REQUESTS LAC CULTURE | | | NO GROWTH 6 DAYS | | + + + + +---------+ + + | Performing | Address | City/State/Zipcode | Phone Number | | Organization | | | | + +---------+ + + | EXTERNAL LAB | | | | + +---------+ + + HISTORICAL LAB PANEL RESULT (09/02/2017 12:15 PM PST) + + + + + + | Component | Value | Ref Range | Performed | Pathologist | | | | | At | Signature | + + + + + + | WBC | 10.75 | 3.80 - 11.00 | EXTERNAL | | | | | K/uL | LAB | | + + + + + + | Non- | 5.19 (H) | 3.70 - 5.10 | EXTERNAL | | | Red Blood | | M/uL | LAB | | | Cells | | | | | | Counted | | | | | + + + + + + | Hemoglobin | 15.8 (H) | 11.3 - 15.5 | EXTERNAL | | | | | g/dL | LAB | | + + + + + + | Hematocrit, | 45.9 | 34.0 - 46.0 % | EXTERNAL | | | POC | | | LAB | | + + + + + + | MCV | 88.3 | 80.0 - 100.0 fl | EXTERNAL | | | | | | LAB | | + + + + + + | MCH | 30.4 | 27.0 - 34.0 pg | EXTERNAL | | | | | | LAB | | + + + + + + | MCHC | 34.4 | 32.0 - 35.5 | EXTERNAL | [...] + + + + | MPV | 7.6 | fl | EXTERNAL | | | | | | LAB | | + + + + + + | Differentia | AUTOMATED | | EXTERNAL | | | l Type | | | LAB | | + + + + + + | % Segmented | 58.12 | % | EXTERNAL | | | | | | LAB | | | Neutrophils | | | | | + + + + + + | % | 28.00 | % | EXTERNAL | | | Lymphocytes | | | LAB | | + + + + + + | % Monocytes | 4.27 | % | EXTERNAL | | | | | | LAB | | + + + + + + | % | 8.61 | % | EXTERNAL | | | Eosinophils | | | LAB | | + + + + + + | % Basophils | 1.00 | % | EXTERNAL | | | | | | LAB | | + + + + + + | Absolute | 6.25 | 1.90 - 7.40 | EXTERNAL | | | Segmented | | K/uL | LAB | | | Neutrophils | | | | | + + + + + + | Absolute | 3.01 | 1.00 - 3.90 | EXTERNAL | | | Lymphocytes | | K/uL | LAB | | + + + + + + | Absolute | 0.46 | 0.00 - 0.80 | EXTERNAL | | | Monocytes | | K/uL | LAB | | + + + + + + | Absolute | 0.93 (H) | 0.00 - 0.50 | EXTERNAL | | | Eosinophils | | K/uL | LAB | | + + + + + + | Absolute | 0.11 (H) | 0.00 - 0.10 | EXTERNAL | | | Basophils | | K/uL | LAB | | + + + + + + | Na | 140 | 135 - 145 | EXTERNAL | | | | | mmol/L | LAB | | + + + + + + | K | 3.4 (L) | 3.5 - 4.9 | EXTERNAL | | | | | mmol/L | LAB | | + + + + + + | Cl | 106 | 99 - 109 mmol/L | EXTERNAL | | | | | | LAB | | + + + + + + | CO2 | 25 | 23 - 32 mmol/L | EXTERNAL | | | | | | LAB | | + + + + + + | Anion Gap | 12 | 5 - 20 mmol/L | EXTERNAL | | | | | | LAB | | + + + + + + | Glucose, | 98 | 65 - 99 mg/dL | EXTERNAL | | | Fasting | | | LAB | | + + + + + + | BUN | 11 | 8 - 25 mg/dL | EXTERNAL | | | | | | LAB | | + + + + + + | Creatinine | 0.93 | 0.50 - 1.00 | EXTERNAL | | | | | mg/dL | LAB | | + + + + + + | BUN/Creatin | 12 | | EXTERNAL | | | ine Ratio | | | LAB | | + + + + + + | Calcium | 9.0 | 8.5 - 10.5 | EXTERNAL | | | | | mg/dL | LAB | | + + + + + + | Protein, | 7.4 | 6.3 - 8.2 g/dL | EXTERNAL | | | Total | | | LAB | | + + + + + + | Albumin | 4.1 | 3.6 - 5.0 g/dL | EXTERNAL | | | | | | LAB | | + + + + + + | Globulin | 3.3 | 1.3 - 4.9 g/dL | EXTERNAL | | | | | | LAB | | + + + + + + | A/G Ratio | 1.2 | 1.0 - 2.4 | EXTERNAL | | | | | | LAB | | + + + + + + | Bilirubin | 0.3 | 0.1 - 1.5 mg/dL | EXTERNAL | | | Total | | | LAB | | + + + + + + | ALP, | 67 | 35 - 115 U/L | EXTERNAL | | | External | | | LAB | | + + + + + + | AST | 15 | 10 - 45 U/L | EXTERNAL [...] | | | | CALCULATED GFR BY 1.210. | | | | | | | | | | + + + + + + | CK, Total | 96 | 30 - 240 U/L | EXTERNAL | | | | | | LAB | | + + + + + + | INR | 0.9Comment: REFERENCE | | EXTERNAL | | | | RANGE:0.9 - 1.2 | | LAB | | | | NON-ANTICOAGULATED2.0 | | | | | | - 3.0 ALL OTHER | | | | | | THERAPEUTIC | | | | | | INDICATIONS2.5 - 3.5 | | | | | | MECHANICAL HEART VALVES, | | | | | | RECURRENT OR SYSTEMIC | | | | | | EMBOLISM | | | | + + + + + + | aPTT, | 26 | 23 - 32 seconds | EXTERNAL | | | Patient | | | LAB | | + + + + + + | CK-MB | <0.5 (L) | 0.5 - 3.6 ng/mL | EXTERNAL | | | | | | LAB | | + + + + + + | CK-MB Index | UNABLE TO | | EXTERNAL | | | | CALCULATEComment: | | LAB | | | | Testing performed at | | | | | | [facility], [address], | | | | | | [place] [address] | | | | + + + + + + + + | Specimen | + + | | + + + +---------+ + + | Performing | Address | City/State/Zipcode | Phone Number | | Organization | | | | + +---------+ + + | EXTERNAL LAB | | | | + +---------+ + + Troponin I (09/02/2017 12:15 PM PST) + + + + + + | Component | Value | Ref Range | Performed | Pathologist | | | | | At | Signature | + + + + + + | Troponin I, | <0.04Comment: 0.00 to | 0.00 - 0.10 | EXTERNAL | | | Qual | 0.10 CONSISTENT WITH | ng/mL | LAB | | | | NORMAL POPULATION0.11 to | | | | | | 0.60 CONSISTENT WITH | | | | | | INCREASED RISK FOR | | | | | | ADVERSE OUTCOMES> 0.60 | | | | | | CONSISTENT | | | | | | WITH WHO CRITERIA FOR | | | | | | ACUTE ND Testing | | | | | | performed at [facility], [address] [place], | | | | | | [place] [address] | | | | + + + + + + + + | Specimen | + + | Blood specimen | | (specimen) | + + + +---------+ + + | Performing | Address | City/State/Zipcode | Phone Number | | Organization | | | | + +---------+ + + | EXTERNAL LAB | | | | + +---------+ + + D-Dimer (09/02/2017 12:15 PM PST) + + + + + + | Component | Value | Ref Range | Performed | Pathologist | | | | | At | Signature | + + + + + + | D-DIMER, | 0.20Comment: D Dimer | 0.19 - 0.50 | EXTERNAL | | | MANUAL | results less than 0.50 | mg/L FEU | LAB | | | | mg/L FEU may rule out | | | | | | DVT and PE. However, | | | | | | all laboratory results | | | | | | should be interpreted in | | | | | | the context of all | | | | | | available clinical, | | | | | | radiologic and | | | | | | laboratory | | | | | | information.Testing | | | | | | performed at [facility], [address] | [address], | | | | | | [place] [address] | | | | + + + + + + + + | Specimen | + + | Blood specimen | | (specimen) | + + + +---------+ + + | Performing | Address | City/State/Zipcode | Phone Number | | Organization | | | | + +---------+ + + | EXTERNAL LAB | | | | + +---------+ + + ECG 12 lead (09/02/2017 12:13 PM PST) + + + + + + | Component | Value | Ref Range | Performed | Pathologist | | | | | At | Signature | + + + + + + | DIAGNOSIS: | Normal sinus | | EXTERNAL | | | | rhythmNonspecific ST | | LAB | | | | abnormalityAbnormal | | | | | | ECGNo previous ECGs | | | | | | availableThis ECG | | | | | | contains Unconfirmed | | | | | | Interpretation | | | | | | Statements. See ED | | | | | | Record for Physician | | | | | | Interpretation. | | | | | | Confirmed by MUSE READ | | | | | | ONLY, -COMPUTER ([id number]), | | | | | | purchasing expeditor Rebecca Ulloa | | | | | | (79) on 09/02/2017 | | | | | | 7:01:55 PM | | | | + + + + + + + + | Specimen | + + | | + + + + + | Narrative | Performed At | + + + | [facility] | EXTERNAL LAB | + + + + +---------+ + + | Performing | Address | City/State/Zipcode | Phone Number | | Organization | | | | + +---------+ + + | EXTERNAL LAB | | | | + +---------+ + + documented in this encounter Visit Diagnoses + + | Diagnosis | + + | Chronic bronchitis with acute exacerbation (HCC) Unspecified chronic bronchitis | + + | Wheezing | + + | Pleurisy Pleurisy without mention of effusion or current tuberculosis | + + documented in this encounter
--- OUTSIDE RECORDS SUMMARY | ~2020-06-02 | XMS | Encounter Summary ---
Demographics + + + | Address | [address] | | | [place] [address] | + + + | Home Phone | | + + + | Preferred Language | Unknown | + + + | Marital Status | Single | + + + | Baptist Affiliation | 1041 | + + + | Race | White | + + + | Ethnic Group | Not or | + + + Author + + + | Author | [facility] | | | and Hanyana | + + + | Organization | [facility] | | | [...] Team Providers + +------+ + | Care Windows Admin Name | Role | Phone | + +------+ + | No, Physician | PCP | Unavailable | + +------+ + Encounter Details +--------+ + + + + | Date | Type | Department | Care Team | Description | +--------+ + + + + | 10/16/ | | | | | | 2020 | Encounter | | | | +--------+ + + [...] Radha Laguerre RN - 10/16/2019 10:00 AM PSTThis note was copied from a baby's chart. Pt here for PPC has been mostly just and using occasional bottles of pumped m ilk as supplement. Pt pumped 2 oz from one breast yesterday. Baby latching well after a coup le of attempts, then had sustained rhythmic sucking with gulping at the breast. Having wet a nd yellow liquid stools at each feeding. Nipples are not sore. Wt: 3232g, [...]
--- OUTSIDE RECORDS SUMMARY | ~2020-06-02 | XMS | Encounter Summary ---
Demographics + + + | Address | [address] | | | [place] [address] | + + + | Home Phone | | + + + | Preferred Language | Unknown | + + + | Marital Status | Single | + + + | Latter Day Affiliation | 1041 | + + + | Race | White | + + + | Ethnic Group | Not or | + + + Author + + + | Author | [facility] | | | and Hanyana | + + + | Organization | [facility] | | [...] Team Providers + +------+ + | Care Drupal Developer Name | Role | Phone | + +------+ + | Unknown, Doctor | PCP | | + +------+ + Encounter Details +--------+ + + + + | Date | Type | Department | Care Team | Description | +--------+ + + + + | 05/13/ | Orders Only | [facility] | Rahul Eli | | | 2019 | | [address] | Tony ROMERO MD [address] | | | | | [place], [place] | [address] | | | | | [address] | [place] [address] | | | | | [phone] | [phone] | | | | | | | [...] + | CULTURE, URINE | Routin | 05/13/2019 | | Results for this | | | e | 12:01 AM | | procedure are in the | | | | PDT | | results section. | + +--------+ + + + documented in this encounter Results Culture, Urine (05/13/2019 12:01 AM PDT) + + | Specimen [...]
--- OUTSIDE RECORDS SUMMARY | ~2020-06-02 | XMS | Encounter Summary ---
Demographics + + + | Address | [address] | | | [place] [address] | + + + | Home Phone | | + + + | Preferred Language | Unknown | + + + | Marital Status | Single | + + + | Confucianist Affiliation | 1041 | + + + | Race | White | + + + | Ethnic Group | Not or | + + + Author + + + | Author | [facility] | | | and Hanyana | + + + | Organization | [facility] | | | [...] Team Providers + +------+ + | Care Band Tier Name | Role | Phone | + [...] + + + + | 09/30/ | Routine | [facility] | Marisela Garcia | GA: 36w0d | | 2019 | | ASSOCIATED | [address] | | | | | [facility] | [address] | | | | | [address] | [place] [address] | | | | | [address] [place], | [phone] | | | | | [place] [address] | | | | | | [phone] | | | +--------+ + + + [...] + + + | Blood Pressure | 122/76 | 09/30/2019 9:52 AM | | | | | PST [...] + + + + | Weight | 97.1 kg (214 lb) | 09/30/2019 9:52 AM | | | | | PST | | + + + + + | Height | - | - | | + + + + + | Body Mass Index | 34.54 | 03/07/2019 11:27 AM | | | | | PDT | | + + + + + documented in this encounter Progress Notes Marisela Garcia MD - 09/30/2019 9:50 AM PSTPt denies any contractions, leaking, bleeding. Good movements. Normal symptoms of 3rd trimester discussed. USG today LGA- noted increase FH at last exam 3482g at 96%tile ABDIRIZAK 13 Plac ant GBS Done today Pt wants to have c section now - worried as she really tore with her 1st baby and this is l ikely going to be bigger F/U 1w Alexa James, [employer] - 09/30/2019 9:50 AM [id number] 36w0d BP 122/76 | Wt 97.1 kg (214 lb) | BMI 34.54 kg/m TW.4 kg (34 lb) IWlb Concerns:reports pressure and joint pain, especially her knees. 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 GBS order pended. d ocumented in this encounter Miscellaneous Notes Result QuickNote - Marisela Garcia MD - 09/30/2019 9:50 AM PST Negative For tested infections Notify patient if no active Mychart - otherwise My comments would have been released auto matically to her MyChart. Thanks Hans Garcia docu mented in this encounter Plan of Treatment Not on filedocumented as of this encounter Procedures + +--------+ + + + | Procedure Name | Priori | Date/Time | Associated Diagnosis | Comments | | | ty | | | | + +--------+ + + + | STREP B SCREEN | Routin | 09/30/2019 | Previous | Results for this | | | e | 9:45 AM | delivery, antepartum | procedure are in the | | | | PST | Supervision of | results section. | | | | | high risk , | | | | | | antepartum | | + +--------+ + + + documented in this encounter Results Strep B screen (09/30/2019 9:45 AM PST) + + + + + + | Component | Value | Ref Range | Performed | Pathologist | | | | | At | Signature | + + + + + + | RESULT | NO GROUP B STREP | | REFERENCE | | | | ISOLATED | | LAB | | | | | | [facility] | | | | | | LABORATORY | | + + + + + + | RESULT | Testing performed at | | REFERENCE | | | | [facility];[address] | | LAB | | | | [address];[place] | | [facility] | | | | [id number]: Testing | | LABORATORY | | | | performed at [facility], [address] | | [address], | | | | | | [place] [address] | | | | + + + + + + + + | Specimen | + + | Tissue - Structure | | of lower third of | | vagina (body | | structure) | + + + + + + + | Performing | Address | City/State/Zipcode | Phone Number | | Organization | | | | + + + + + | REFERENCE LAB | [address] | [place] | [phone] | | [facility] | [address] | [address] | | | LABORATORY | | | | + + + + + | REFERENCE LAB | [address] [facility] | [place], [place] | | | [facility] | [address] | [address] | | | LABORATORY | | | | + + + + + documented in this encounter Visit Diagnoses + + | Diagnosis | + + | Previous delivery, antepartum - Primary | + + | Supervision of high risk , antepartum | + + documented in this encounter"
--- OUTSIDE RECORDS SUMMARY | ~2020-06-02 | XMS | Encounter Summary ---
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 | + +--------+ + + + documented in this encounter Results XR Chest 2 Vws (07/08/2017 12:17 PM PDT) + + | Specimen | + + | | + + + + + | Impressions | Performed At | + + + | 1. Mild prominence of perihilar lung markings bilaterally, which | | | could represent viral infection or asthma. No definite airspace | | | opacification. | | | 1:03 PM | | + + + + + + | Narrative | Performed At | + + + | [facility]NA[facility] CODY 1990 27 years Female XR CHEST 2 VIEW | | | FRONTAL AND LATERAL 07/08/2017 12:17 PM INDICATION: Left lower | | | lobe pneumonia, persistent cough COMPARISON: 06/25/2017 | | | TECHNIQUE: Two view chest, PA and lateral views FINDINGS: The | | | heart is normal in size. Mild prominence of perihilar lung markings | | | bilaterally, without evidence of airspace opacification. No | | | pneumothorax or significant pleural effusion. | | + + + + -----+ | Procedure Note | + -----+ | Eliecer, Rad Conversion - 06/06/2019 7:17 PM PDT HANNAH CODY years | | FemaleXR CHEST 2 VIEW FRONTAL AND LATERAL07/08/2017 12:17 PM INDICATION: Left lower lobe | | pneumonia, persistent cough COMPARISON: 06/25/2017 TECHNIQUE: Two view chest, PA and | | lateral views FINDINGS: The heart is normal in size. Mild prominence of perihilar lung | | markings bilaterally, without evidence of airspace opacification. No pneumothorax or | | significant pleural effusion. IMPRESSION: 1. Mild prominence of perihilar lung markings | | bilaterally, which could represent viral infection or asthma. No definite airspace | | opacification. | |COMPARISON: 06/25/2017 | | | |TECHNIQUE: Two view chest, PA and lateral views | | | |FINDINGS: The heart is normal in size. Mild prominence of perihilar lung markings bilateral ly, without evidence of airspace opacification. No pneumothorax or significant pleural effus ion. | | | |IMPRESSION: | |1. Mild prominence of perihilar lung markings bilaterally, which could represent viral inf ection or asthma. No definite airspace opacification. | | | | | + -----+ documented in this encounter Visit Diagnoses Not on filedocumented in this encounter"
--- OUTSIDE RECORDS SUMMARY | ~2020-06-02 | XMS | Encounter Summary ---
Demographics + + + | Address | [address] | | | [place] [address] | + + + | Home Phone [...] + + + | Author | [facility] | | | and Hanyana | + + + | Organization | [facility] | | [...] Team Providers + +------+ + | Care Transmission Repairer Name | Role | Phone | + +------+ + | Unknown, Doctor | PCP | | + +------+ + Encounter Details +--------+ + + + + | Date | Type | Department | Care Team | Description | +--------+ + + + + | 06/25/ | Orders Only | [facility] | Aleksandra Fox, | | | 2016 | | URGENT CARE XRAY | 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 | + +--------+ + + + documented in this encounter Results XR Chest 2 Vws (06/25/2017 1:41 PM PDT) + + | Specimen | + + | | + + + + + | Impressions | Performed At | + + + | 1. Findings suggest chronic bronchitis. 2. Mild airspace | | | disease in the left lung in the perihilar region, which may be | | | associated pneumonia. This could be viral, with bacterial pneumonia | | | not excluded. Electronically signed by Aleksander Jose MD on | | | 06/25/2017 1:43 PM | | + + + + + + | Narrative | Performed At | + + + | HANNAH GLO 1990 27 years Female XR CHEST 2 VIEW | | | FRONTAL AND LATERAL 06/25/2017 1:41 PM INDICATION: Persistent | | | cough. Fever and shortness of breath. COMPARISON: Chest | | | radiographs dated February 13, 2017. TECHNIQUE: Two view chest, PA and | | | lateral views FINDINGS: Peribronchial cuffing is seen in the hilar | | | regions. Subtle left perihilar infiltrate is noted. The right lung is | | | clear. No pneumothorax or pleural effusion is found. The cardiac | | | silhouette and pulmonary vasculature are normal. Cholecystectomy | | | clips are seen. No worrisome bone lesions are identified. | | + + + + + | Procedure Note | + + | Eliecer, Rad Conversion - 06/06/2019 7:17 PM PDT HANNAH CODY years | | FemaleXR CHEST 2 VIEW FRONTAL AND LATERAL06/25/2017 1:41 PM INDICATION: Persistent cough. | | Fever and shortness of breath. COMPARISON: Chest radiographs dated February 13, 2017. | | TECHNIQUE: Two view chest, PA and lateral views FINDINGS: Peribronchial cuffing is seen | | in the hilar regions. Subtle left perihilar infiltrate is noted. The right lung is | | clear. No pneumothorax or pleural effusion is found. The cardiac silhouette and | | pulmonary vasculature are normal. Cholecystectomy clips are seen. No worrisome bone | | lesions are identified. IMPRESSION: 1. Findings suggest chronic bronchitis. 2. Mild | | airspace disease in the left lung in the perihilar region, which may be associated | | pneumonia. This could be viral, with bacterial pneumonia not excluded. Electronically | | signed by Aleksander Joes MD on 06/25/2017 1:43 PM | | | |FINDINGS: Peribronchial cuffing is seen in the hilar regions. Subtle left perihilar infiltr ate is noted. The right lung is clear. No pneumothorax or pleural effusion is found. The car diac silhouette and pulmonary | |vasculature are normal. Cholecystectomy | |clips are seen. No worrisome bone lesions are identified. | | | |IMPRESSION: | |1. Findings suggest chronic bronchitis. | | | |2. Mild airspace disease in the left lung in the perihilar region, which may be associated pneumonia. This could be viral, with bacterial pneumonia not excluded. | | | | | + + documented in this encounter Visit Diagnoses Not on filedocumented in this encounter"
--- OUTSIDE RECORDS SUMMARY | ~2020-06-02 | XMS | Encounter Summary ---
Demographics + + + | Address | [address] | | | [place] [address] | + + + | Home Phone | | + + + | Preferred Language | Unknown | + + + | Marital Status | Single | + + + | Shinto Affiliation | [phone] | + + + [...] Team Providers + +------+ + | Care Logistics Associate Name | Role | Phone | + +------+ + | Unknown, Physician | PCP | | + +------+ + Encounter Details +--------+ + + + + | Date | Type | Department | Care Team | Description | +--------+ + + + + | 06/10/ | [facility] | [facility] | Sreedhar, Rahul | Supervision of other | | 2019 | Encounter | [facility] | Tony ROMERO MD [address] | normal , | | | | ULTRASOUND 9[address] | [address] | antepartum; | | | | [address] | [place] [address] | Screening, | | | | [place], [place] | [phone] | , for | | | | [address] | | anatomic survey | | | | [phone] | | | +--------+ + + + [...] +--------+ + + + | US OB 14 + WEEKS | Routin | 06/10/2019 | Supervision of | Results for this | | SINGLE OR FIRST | e | 11:48 AM | other normal | procedure are in the | | GESTATION | | PDT | , | results section. | | | | | antepartum | | | | | | Screening, | | | | | | , for | | | | | | anatomic survey | | + +--------+ + + + documented in this encounter Results US OB 14 + Week Singl or First Gestation (06/10/2019 11:48 AM PDT) + + | Specimen | + + | | + + + + + | Narrative | Performed At | + + + | Indication | [facility] | | ========= anatomy survey Method ====== Transabdominal | | | ultrasound examination. View: Sufficient ========= | | | [place] . Number of fetuses: 1. Dating ====== | | | Date | | | Details | | | | | | Gest. age | | | MANUEL External assessment | | | | | | | | | 20 w + 0 d | | | 10/28/2019 U/S | | | 06/10/2019 based upon AC, BPD, | | | Femur, HC | | | 21 w + 0 d 10/21/2019 Assigned | | | dating Dating performed on 06/10/2019, based | | | on the external assessment | | | 20 w + 0 d 10/28/2019 | | | General Evaluation Cardiac activity present. FHR 145 | | | bpm. movements visualized. Presentation transverse, Anterior | | | spine. Placenta anterior. Umbilical cord 3 vessel cord. Amniotic fluid | | | normal amount. Biometry Main Biometry: BPD | | | 47.0 | | | mm 20w 1d | | | 59% Hadlock OFD | | | 63.5 | | | mm 20w 2d | | | 85% Nicolaides HC | | | 178.4 | | | mm 20w 2d | | | 56% Hadlock Cerebellum | | | tr 20.8 | | | mm 19w 6d | | | 63% Nicolaides AC | | | 164.1 | | | mm 21w 3d | | | 87% Hadlock Femur | | | 37.6 mm | | | 22w 0d | | | 95% Hadlock Humerus | | | 31.8 mm | | | 20w 4d 72% | | | Rodriguez HC / AC | | | 1.09 | | | -/- 5% | | | Smith Weight Calculation: EFW | | | 429 | | | g 21w 3d | | | 99% Hadlock EFW | | | (lb,oz) 0 lb 15 | | | oz EFW by | | | Hadlock ([id number]) Head / Face / Neck Biometry: Cephalic | | | index 0.74 | | | | | | 9% Chitty CM | | | 4.7 | | | mm | | | 39% | | | Nicolaides Extremities / Bony Struc Biometry: FL / BPD | | | 0.80 | | | -/- | | | >99% Hadlock FL / HC | | | 0.21 | | | -/- | | | >99% Hadlock FL / AC | | | 0.23 | | | -/- | | | 81% Hadlock Other | | | Structures Biometry: FHR | | | 145 bpm | | | Anatomy Head: Head shape and size | | | appear normal. Brain: Cerebellum, choroid plexus, cisterna magna, | | | lateral cerebral ventricles, midline falx and cavum septi pellucidi | | | appear normal. Spine: appears normal. Neck / Skin: No neck masses | | | seen. Thorax: No thoracic abnormalities detected. Heart: Four chamber | | | view of the heart and outflow tracts appear normal. Abdominal wall: | | | Abdominal wall and cord insertion appear normal. | | | Gastrointestinal tract: stomach (size and shape) and intestines | | | appear normal. Bladder: Bladder appears normal in size and shape. | | | Extremities: Both upper and lower extremities are seen and appear | | | normal. Skeleton: Skeletal structures appear normal Maternal | | | Structures Cervix | | | Visualized | | | Cervical length 40.2 mm Right Ovary | | | Not visualized Left Ovary | | | Not visualized Impression ========= Single | | | live intrauterine demonstrating normal interval growth. | | | Anterior placenta without previa. Cervical length normal. Ovaries not | | | visualized. Subjectively normal amniotic fluid. Female genitalia. | | | Suboptimal imaging for kidneys and profile. Rest of anatomy survey | | | within normal limits. | | | | | | | | | | | + + + + + | Procedure Note | + + | Harry Gonzáles In - 06/10/2019 11:52 AM PDT Indication ========= anatomy | | survey Method ====== Transabdominal ultrasound examination. View: Sufficient | | ========= [place] . Number of fetuses: 1. Dating ====== | | Date Details | | Gest. age | | MANUEL External assessment | | | | 20 w + 0 d 10/28/2019 U/S | | 06/10/2019 based upon AC, BPD, Femur, HC | | 21 w + 0 d 10/21/2019 Assigned dating | | Dating performed on 06/10/2019, based on the external assessment | | 20 w + 0 d 10/28/2019 General Evaluation | | Cardiac activity present. FHR 145 bpm. movements visualized. | | Presentation transverse, Anterior spine. Placenta anterior. Umbilical cord 3 vessel | | cord. Amniotic fluid normal amount. Biometry Main Biometry: | | BPD 47.0 mm | | 20w 1d 59% Hadlock OFD | | 63.5 mm 20w 2d | | 85% Nicolaides HC 178.4 | | mm 20w 2d 56% | | Hadlock Cerebellum tr 20.8 mm | | 19w 6d 63% Nicolaides AC | | 164.1 mm 21w 3d | | 87% Hadlock Femur 37.6 | | mm 22w 0d 95% | | Hadlock Humerus 31.8 mm | | 20w 4d 72% Rodriguez HC / AC | | 1.09 -/- | | 5% Smith Weight Calculation: EFW | | 429 g 21w 3d | | 99% Hadlock EFW (lb,oz) 0 lb 15 | | oz EFW by Hadlock ([id number]) | | Head / Face / Neck Biometry: Cephalic index 0.74 | | 9% | | Chitty CM 4.7 mm | | 39% Nicolaides Extremities / | | Bony Struc Biometry: FL / BPD 0.80 | | -/- >99% Hadlock FL / | | HC 0.21 | | -/- >99% Hadlock FL / AC | | 0.23 -/- | | 81% Hadlock Other Structures Biometry: FHR | | 145 bpm Anatomy | | Head: Head shape and size appear normal. Brain: Cerebellum, choroid plexus, | | cisterna magna, lateral cerebral ventricles, midline falx and cavum septi pellucidi | | appear normal. Spine: appears normal. Neck / Skin: No neck masses seen. Thorax: No | | thoracic abnormalities detected. Heart: Four chamber view of the heart and outflow | | tracts appear normal. Abdominal wall: Abdominal wall and cord insertion appear | | normal. Gastrointestinal tract: stomach (size and shape) and intestines appear | | normal. Bladder: Bladder appears normal in size and shape. Extremities: Both upper and | | lower extremities are seen and appear normal. Skeleton: Skeletal structures appear | | normal Maternal Structures Cervix | | Visualized Cervical length 40.2 mm Right | | Ovary Not visualized Left Ovary Not | | visualized Impression ========= Single live intrauterine demonstrating | | normal interval growth. Anterior placenta without previa. Cervical length normal. | | Ovaries not visualized. Subjectively normal amniotic fluid. Female genitalia. Suboptimal | | imaging for kidneys and profile. Rest of anatomy survey within normal limits. | | | |Other Structures Biometry: | |FHR 145 bpm | | | | Anatomy | | | | | |Head: Head shape and size appear normal. | |Brain: Cerebellum, choroid plexus, cisterna magna, lateral cerebral ventricles, midline fal x and cavum septi pellucidi appear normal. | |Spine: appears normal. | |Neck / Skin: No neck masses seen. | |Thorax: No thoracic abnormalities detected. | |Heart: Four chamber view of the heart and outflow tracts appear normal. | |Abdominal wall: Abdominal wall and cord insertion appear normal. | |Gastrointestinal tract: stomach (size and shape) and intestines appear normal. | |Bladder: Bladder appears normal in size and shape. | |Extremities: Both upper and lower extremities are seen and appear normal. | |Skeleton: Skeletal structures appear normal | | | |Maternal Structures | | | | | |Cervix Visualized | | Cervical length 40.2 mm | |Right Ovary Not visualized | |Left Ovary Not visualized | | | |Impression | |========= | | | |Single live intrauterine demonstrating normal interval growth. Anterior placenta without previa. Cervical length normal. Ovaries not visualized. Subjectively normal | |amniotic fluid. Female genitalia. Suboptimal imaging for kidneys and profile. Rest of anato my survey within normal limits. | | | | | | | + + + +---------+ + + | Performing | Address | City/State/Zipcode | Phone Number | | Organization | | | | + +---------+ + + | [facility] | | | | + +---------+ + + documented in this encounter Visit Diagnoses + + | Diagnosis | + + | Supervision of other normal , antepartum | + + | Screening, , for anatomic survey Encounter for anatomic survey | + + documented in this encounter"
--- OUTSIDE RECORDS SUMMARY | ~2020-06-02 | XMS | Encounter Summary ---
Demographics + + + | Address | [address] | | | [place] [address] | + + + | Home Phone | | + + + | Preferred Language | Unknown | + + + | Marital Status | Single | + + + | Spiritism Affiliation | 1041 | + + + [...] Team Providers + +------+ + | Care Ancient Art Curator Name | Role | Phone | + +------+ + | Unknown, Physician | PCP | | + +------+ + Encounter Details +--------+ + + + + | Date | Type | Department | Care Team | Description | +--------+ + + + + | 07/08/ | Routine | [facility] | Nicolle Valentine, | [place]: | | 2019 | | ASSOCIATED | CORRECTIONAL OFFICER SERGEANT [address] | | | | | [facility] | [address] | | | | | [address] | [place], [place] [address] | | | | | [address] [place], | [phone] | | | | | [place] [address] | | | | | | [phone] | | | +--------+ + + + [...] + + + | Blood Pressure | 110/64 | 07/08/2019 10:47 AM | | | | | PDT [...] + + + + | Weight | 93.4 kg (206 lb) | 07/08/2019 10:47 AM | | | | | PDT | | + + + + + | Height | - | - | | + + + + + | Body Mass Index | 33.25 | 03/07/2019 11:27 AM | | | | | PDT | | + + + + + documented in this encounter Patient Instructions Patient Instructions Nicolle Valentine ARNP - 07/08/2019 10:30 AM PDTThank you for keeping y our appt Do your labs a day or 2 prior to next appt Get appt with MD only documented in this encounter Progress Notes Nicolle Valentine ARNP - 07/08/2019 10:30 AM PDTHere for 24 week OB check No complaints Wants to do a Stevie Has not signed consent form yet Was told that she had to schedule with everyone A: SIUP at 24w0d Hx of P: Normal OB care See only MD's 24w0d BP 110/64 | Wt 93.4 kg (206 lb) | BMI 33.25 kg/m TW.8 kg (26 lb) IW lbs Concerns: patient c/o headaches, nausea, and vomiting. OBGCT and CBC pended. Antibody screen: Not eligible. GCT instruction sheet given. documented in this encounter Plan of Treatment Not on filedocumented as of this encounter Procedures + +--------+ + + + | Procedure Name | Priori | Date/Time | Associated Diagnosis | Comments | | | ty | | | | + +--------+ + + + | ABO RH | Routin | 03/19/2019 | | Results for this | | | e | | | procedure are in the | | | | | | results section. | + +--------+ + + + | ANTIBODY SCREEN | Routin | 03/19/2019 | | Results for this | | | e | | | procedure are in the | | | | | | results section. | + +--------+ [...] | | | Absolute | performed at [facility];[address] | LAB | | | | [place] | | [facility] | | | | [address];[place] [address] | | LABORATORY | | + + + + + + + + | Specimen | + + | Blood | + + + + + + + | Performing | Address | City/State/Zipcode | Phone Number | | Organization | | | | + + + + + | REFERENCE LAB | [facility] [address] | [place] | [phone] | | [facility] | [address] | [address] | | | LABORATORY | | | | + + + + + | REFERENCE LAB | [facility] [address] | [place] | | | [facility] | [address] | [address] | | | LABORATORY | | | [...] | | | Glucose, | performed at [facility];[address] | | LAB | | | 1hr | [facility] | | [facility] | | | | [address];[place] [address] | | LABORATORY | | + + + + + + + + | Specimen | + + | Blood | + + + + + + + | Performing | Address | City/State/Zipcode | Phone Number | | Organization | | | | + + + + + | REFERENCE LAB | [address] [place] [address] | [place], [place] | [phone] | | [facility] | [address] | [address] | | | LABORATORY | | | | + + + + + | REFERENCE LAB | [address] [place] [address] | [place], [place] | | | [facility] | [address] | [address] | | | LABORATORY | | | | + + + + + ABO Rh (03/19/2019) + + + + + + | Component | Value | Ref Range | Performed | Pathologist | | | | | At | Signature | + + + + + + | ABO Rh | o positive | | | | + + + + + + + + | Specimen | + + | Blood | + + Antibody Screen (03/19/2019) + + + + + + | Component | Value | Ref Range | Performed | Pathologist | | | | | At | Signature | + + + + + + | Antibody | negative | | | | | Screen | | | | | + + + + + + + + | Specimen | + + | Blood | + + documented in this encounter Visit Diagnoses + + | Diagnosis | + + | Previous delivery, antepartum - Primary | + + | Supervision of high risk , antepartum | + + | Desires (vaginal after ) trial Previous delivery, | | unspecified as to episode of care or not applicable | + + documented in this encounter"
--- OUTSIDE RECORDS SUMMARY | ~2020-06-02 | XMS | Encounter Summary ---
Demographics + + + | Address | [address] | | | [place] [address] | + + + | Home Phone [...] + + + | Author | [facility] | | | and Hanyana | + + + | Organization | [facility] | | | [...] Team Providers + +------+ + | Care Chemical Supervisor Name | Role | Phone | + +------+ + | No, Physician | PCP | Unavailable | + +------+ + Encounter Details +--------+ + + + + | Date | Type | Department | Care Team | Description | +--------+ + + + + | 08/02/ | Orders Only | [facility] | Alondra Hobbs | Abnormal glucose | | 2018 | | [address] | Christina Technical Engineer | tolerance test (GTT) | | | | [place], [place] | | during , | | | | [address] | | antepartum | | | | [phone] | | | +--------+ + + + [...] + | GESTATIONAL GLUCOSE | Routin | 08/02/2019 | Abnormal glucose | Results for this | | TEST, 3HR | e | 12:02 PM | tolerance test (GTT) | procedure are in the | | | | PDT | during , | results section. | | | | | antepartum | | + +--------+ + + + documented in this encounter Results Gestational Glucose Test, 3Hr (08/02/2019 12:02 PM PDT) + + + + + + | Component | Value | Ref Range | Performed | Pathologist | | | | | At | Signature | + + + + + + | Glucose | 100Comment: Testing | GRAMS | REFERENCE | | | Load | Performed at [facility]: [address] | | LAB | | | | [facility], | | [facility] | | | | [place], [place] [address] | | LABORATORY | | + + [...] | | | 3hr | performed at [facility];[address] | | LAB | | | | [place] | | [facility] | | | | [address];[place] [address] | | LABORATORY | | + + + + + + + + | Specimen | + + | Blood | + + + + + + + | Performing | Address | City/State/Zipcode | Phone Number | | Organization | | | | + + + + + | REFERENCE LAB | [address] [facility] | [place] | [phone] | | [facility] | [address] | [address] | | | LABORATORY | | | | + + + + + | REFERENCE LAB | [address] | [place] | | | [facility] | [address] | [address] | | | LABORATORY | | | | + + + + + documented in this encounter Visit Diagnoses + + | Diagnosis | + + | Abnormal glucose tolerance test (GTT) during , antepartum | + + documented in this encounter"
--- OUTSIDE RECORDS SUMMARY | ~2020-06-02 | XMS | Encounter Summary ---
Demographics + + + | Address | [address] | | | [place] [address] | + + + | Home Phone [...] Author + + + | Author | [facility] | | | and Hanyana | + + + | Organization | [facility] | | | [...] Team Providers + +------+ + | Care Cnc Lathe Machinist Name | Role | Phone | + +------+ + PCP | Unavailable | + +------+ + Encounter Details +--------+ + + + + | Date | Type | Department | Care Team | Description | +--------+ + + + + | 03/19/ | Orders Only | [facility] | Stephanie Aguirre, | | | 2019 | | [address] | SOFTWARE APPLICATIONS ARCHITECT [address] | | | | | [place] | [address] | | | | | [address] | [place] [address] | | | | | [phone] | [phone] | | | | | | | [...] | + +--------+ + + + | HIV 1 AND 2 ANTIBODY | Routin | 03/19/2019 | | Results for this | | DIFFERENTIATION | e | 11:05 AM | | procedure are in the | | | | PDT | | results section. | + +--------+ + + + | OBSTETRICS PANEL | Routin | 03/19/2019 | | Results for this | | | e | 11:05 AM | | procedure are in the | | | | PDT | | results section. | + +--------+ + + + documented in this encounter Results Obstetrics Panel (03/19/2019 11:05 AM PDT) + + + + + + | Component | Value | Ref Range | Performed | Pathologist | | | | | At | Signature | + + + + + + | WBC | 8.62 | 3.80 - 11.00 | EXTERNAL | | | | | 10*3/uL | LAB | | + + + + + + | Non- | 4.82 | 3.70 - 5.10 | EXTERNAL | | | Red Blood | | 10*6/uL | LAB | | | Cells | | | | | | Counted | | | | | + + + + + + | Hemoglobin | 14.6 | 11.3 - 15.5 | EXTERNAL | | | | | g/dL | LAB | | + + + + + + | Hematocrit, | 42.7 | 34.0 - 46.0 % | EXTERNAL | | | POC | | | LAB | | + + + + + + | MCV | 88.7 | 80.0 - 100.0 fL | EXTERNAL | | | | | | LAB | | + + + + + + | MCH | 30.3 | 27.0 - 34.0 pg | EXTERNAL | | | | | | LAB | | + + + + + + | MCHC | 34.2 | 32.0 - 35.5 | EXTERNAL | | | | | g/dL | LAB | | + + + + + + | RDW-CV | 41.6 | 37 - 53 fL | EXTERNAL | | | | | | LAB | | + + + + + + | Platelet | 223 | 150 - 400 | EXTERNAL | | | Count | | 10*3/uL | LAB | | | Plasma | | | | | + + + + + + | MPV | 7.8 | fL | EXTERNAL | | | | | | LAB | | + + + + + + | Differentia | AUTOMATED | | EXTERNAL | | | l Type | | | LAB | | + + + + + + | % Segmented | 69.28 | % | EXTERNAL | | | | | | LAB | | | Neutrophils | | | | | + + + + + + | % | 25.39 | % | EXTERNAL | | | Lymphocytes | | | LAB | | + + + + + + | % Monocytes | 3.66 | % | EXTERNAL | | | | | | LAB | | + + + + + + | % | 1.51 | % | EXTERNAL | | | Eosinophils | | | LAB | | + + + + + + | % Basophils | 0.16 | % | EXTERNAL | | | | | | LAB | | + + + + + + | Absolute | 5.97 | 1.90 - 7.40 | EXTERNAL | | | Segmented | | 10*3/uL | LAB | | | Neutrophils | | | | | + + + + + + | Absolute | 2.19 | 1.00 - 3.90 | EXTERNAL | | | Lymphocytes | | 10*3/uL | LAB | | + + + + + + | Absolute | 0.32 | 0.00 - 0.80 | EXTERNAL | | | Monocytes | | 10*3/uL | LAB | | + + + + + + | Absolute | 0.13 | 0.00 - 0.50 | EXTERNAL | | | Eosinophils | | 10*3/uL | LAB | | + + + + + + | Absolute | 0.01 | 0.00 - 0.10 | EXTERNAL | | | Basophils | | 10*3/uL | LAB | | + + + + + + | Rubella IgG | 137.6Comment: | [iU]/mL | EXTERNAL | | | Ab, Screen | Susceptible: <5.0 | | LAB | | | | Indeterminate: 5 to 10 | | | | | | Immune: >10 | | | | + + + + + + | Treponema | NON REACTIVE | | EXTERNAL | | | Pallidum Ab | | | LAB | | | Total | | | | | + + + + + + | Hepatitis B | NON REACTIVE | | EXTERNAL | | | Surface Ag | | | LAB | | + + + + + + + + | Specimen | + + | Blood specimen | | (specimen) | + + + +---------+ + + | Performing | Address | City/State/Zipcode | Phone Number | | Organization | | | | + +---------+ + + | EXTERNAL LAB | | | | + +---------+ + + HIV 1 and 2 Antibody Differentiation (03/19/2019 11:05 AM PDT) + + + + + + | Component | Value | Ref Range | Performed | Pathologist | | | | | At | Signature | + + + + + + | HIV 1 and 2 | NON REACTIVEComment: THE | | EXTERNAL | | | Ab | NON REACTIVE HIV 1/2 | | LAB | | | | RESULT INDICATES THAT | | | | | | NEITHER ANTIBODIES NOR | | | | | | P24 ANTIGEN TO HIV 1/2 | | | | | | HAVE BEEN DETECTED IN | | | | | | THIS SPECIMEN. THIS | | | | | | RESULT DOES NOT PRECLUDE | | | | | | PREVIOUS EXPOSURE OR | | | | | | INFECTION. | | | | + + + [...]
[~2020-06-02 13:11] MED LIST changes: +CLEOCIN HCL300 MG PO; +IBUPROFEN400 MG PO
--- OUTSIDE RECORDS SUMMARY | 2020-06-02 13:14 | XMS ---
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 Care Guidelines exist for the following facilities: [facility] ( 11/25/2019 ) [place] VISIT COUNT (12 MO.) [address] TOTAL 4 NOTE: Visits indicate total known visits. ED/UCC VISIT TRACKING (12 MO.) 06/02/2020 13:12 [facility] [place] TYPE: Emergency COMPLAINT: - ABDOMINAL/BACK PAIN 05/31/2020 15:59 [email or web address] [place] TYPE: Emergency DIAGNOSES: - IUD problems - Unspecified complication of genitourinary prosthetic device, 02/17/2020 19:17 [email or web address] [place] TYPE: Emergency DIAGNOSES: - Acute cystitis without hematuria - poss uti 07/16/2019 11:26 [email or web address] [place] TYPE: Emergency DIAGNOSES: - Headache - 25 weeks gestation of - BACK PAIN HEADACHE INPATIENT VISIT TRACKING (12 MO.) [facility] TYPE: Obst[facility] DIAGNOSES: - Maternal care for unspecified type scar from previous cesarea [id number]
== END 2020-06-02 19:10 | disposition home or self-care (01) ==
LOC: ED 13:11
DX: R10.31 Right lower quadrant pain (principal); F17.200 Nicotine dependence, unspecified, uncomplicated; Z88.0 Allergy status to penicillin; Z88.1 Allergy status to other antibiotic agents
CPT/HCPCS: 74177; 80053; 81001; 83690; 83735; 84703; 85025; 96361; 96375; 96376; 99284-25; J1885; J2405; J7030

== ENCOUNTER 2020-09-18 11:55 | Emergency (ER) | payer OTHER ==
[~2020-09-18] VITALS: Ht 167.6 cm; Wt 86.2 kg
--- OUTSIDE RECORDS SUMMARY | 2020-09-18 11:58 | XMS ---
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 ED/UCC VISIT TRACKING (12 MO.) 09/18/2020 11:56 [facility] [place] TYPE: Emergency COMPLAINT: - FLANK/BACK PAIN 09/17/2020 13:[facility] [place] [facility] DIAGNOSES: - Zoster without complications - LEFT SIDE PAIN VOMITING NAUSEA 07/04/2020 04:41 [facility] [place] TYPE: Emergency DIAGNOSES: - EYE IRRITATION - Injury of conjunctiva and corneal abrasion without foreign body, left eye, initial encounter 06/02/2020 13:12 [facility] [place] TYPE: Emergency COMPLAINT: - ABDOMINAL/BACK PAIN DIAGNOSES: - Allergy status to other antibiotic agents - Allergy status to penicillin - Right lower quadrant pain - Nicotine dependence, unspecified, uncomplicated 05/31/2020 15:59 [facility] [place] TYPE: Emergency DIAGNOSES: - IUD problems - Unspecified complication of genitourinary prosthetic device, implant and graft, initial encounter 02/17/2020 19:17 [facility] [place] TYPE: Emergency DIAGNOSES: - Acute cystitis without hematuria - poss uti INPATIENT VISIT TRACKING (12 MO.) 10/12/2019 13:[address] [facility] Raul [facility] TYPE: Obstetrics DIAGNOSES: - Maternal care for unspecified type scar from previous delivery [email or web address]
[2020-09-18] MEDS ORDERED: VENTOLIN HFA18 GM INH (12:32)
[2020-09-18] MEDS ORDERED: OXYCODONE-ACET1 EAC1 PO (12:34)
[2020-09-18] MEDS ORDERED: VALACYCLOVIR1000 MG PO (12:34)
[2020-09-18] MEDS ORDERED: FLAGYL500 MG PO (15:32)
[2020-09-18] MEDS ORDERED: NORCO 5-325 TA1 EACH PO (15:32)
[2020-09-18] MEDS ORDERED: CIPRO500 MG PO (15:32)
== END 2020-09-18 16:19 | disposition home or self-care (01) ==
LOC: ED 11:55
DX: K57.92 Diverticulitis of intestine, part unspecified, without perforation or abscess without bleeding (principal); F17.200 Nicotine dependence, unspecified, uncomplicated; Z88.0 Allergy status to penicillin; Z88.1 Allergy status to other antibiotic agents; Z79.899 Other long term (current) drug therapy
CPT/HCPCS: 74176; 80053; 81001; 83690; 84703; 85025; 96374; 96375; 99284-25; J1885; J2270; J2405; J7030

== ENCOUNTER 2021-01-23 19:14 | Emergency (ER) | payer OTHER ==
[~2021-01-23] VITALS: Ht 167.6 cm; Wt 81.7 kg
[~2021-01-23 19:14] MED LIST changes: +ASHLYNA 0.15-01 EACH PO; +CYCLOBENZAPRINE10 MG PO; +FLAGYL500 MG PO; +ONDANSETRON ODT8 MG PO; +OXYCODONE-ACET1 EAC1 PO; +VALACYCLOVIR1000 MG PO; +VENTOLIN HFA18 GM INH
--- OUTSIDE RECORDS SUMMARY | 2021-01-23 19:18 | XMS ---
PreManage Notification: MERE CODY Security Career Services Officer Events 1 event(s) in the past 18 months Most recent security events: Elopement at [facility] 01/19/2021 16:55 - Other Details: PATIENT LWBS. CRITERIA MET - 6 ED Visits in 6 Months - [facility] - 2 Visits in 30 Days CARE PROVIDERS BENJAMIN ELIAS Current PHONE: [phone] Care Guidelines exist for the following facilities: [facility] ( 11/25/2019 ) [place] VISIT COUNT (12 MO.) [address] TOTAL 12 NOTE: Visits indicate total known visits. ED/UCC VISIT TRACKING (12 MO.) 01/23/2021 19:16 [facility] [place] TYPE: Emergency COMPLAINT: - NAUSEA, VOMITING, ABDOM PAIN 01/19/2021 16:55 [facility] TYPE: Emergency COMPLAINT: - DIZZINESS,STOMACH PAIN 01/10/2021 13:26 [facility] [place] TYPE: Emergency COMPLAINT: - CHEST PAIN DIAGNOSES: - Allergy status to penicillin - Nicotine dependence, unspecified, uncomplicated - Allergy status to other antibiotic agents - Other chest pain - Urinary tract infection, site not specified 01/08/2021 22:38 [facility] [place] TYPE: Emergency COMPLAINT: - POSS OVERDOSE DIAGNOSES: - POSS OVERDOSE 01/03/2021 16:15 [facility] [place] TYPE: Emergency DIAGNOSES: - Sacrococcygeal disorders, not elsewhere classified - TAIL BONE PAIN - Unspecified fall, initial encounter 12/21/2020 18:16 [facility] [place] TYPE: Emergency DIAGNOSES: - Paresthesia of skin - Anxiety disorder, unspecified - ARM NUMBNESS 09/18/2020 11:56 [facility] TYPE: Emergency COMPLAINT: - FLANK/BACK PAIN DIAGNOSES: - Allergy status to other antibiotic agents - Diverticulitis of intestine, part unspecified, without perforation or abscess without bleeding - Unspecified abdominal pain - Other group home (current) drug therapy - Allergy status to other antibiotic agents - Nicotine dependence, unspecified, uncomplicated - Allergy status to penicillin 09/17/2020 13:07 [facility] [place] TYPE: Emergency DIAGNOSES: - Zoster without complications - LEFT SIDE PAIN VOMITING NAUSEA 07/04/2020 04:41 [facility] OR TYPE: Emergency DIAGNOSES: - EYE IRRITATION - Injury of conjunctiva and corneal abrasion without foreign body, left eye, initial encounter 06/02/2020 13:12 [facility] [place] TYPE: Emergency COMPLAINT: - ABDOMINAL/BACK PAIN DIAGNOSES: - Allergy status to other antibiotic agents - Allergy status to penicillin - Right lower quadrant pain - Nicotine dependence, unspecified, uncomplicated 05/31/2020 15[facility] DIAGNOSES: - IUD problems - Unspecified complication of genitourinary prosthetic device, implant and graft, initial encounter 02/17/2020 19:17 [facility] [place] TYPE: Emergency DIAGNOSES: - Acute cystitis without hematuria - poss uti INPATIENT VISIT TRACKING (12 MO.) No inpatient visits to display in this time frame [email or web address]
[2021-01-23] MEDS ORDERED: HYDROCODON-ACE1 EA10 PO (22:30)
[2021-01-23] MEDS ORDERED: ZOFRAN4 MG PO (22:30)
[2021-01-23] MEDS ORDERED: MECLIZINE HCL25 MG PO (22:30)
== END 2021-01-23 22:57 | disposition home or self-care (01) ==
LOC: ED 19:14
DX: R10.9 Unspecified abdominal pain (principal); F17.200 Nicotine dependence, unspecified, uncomplicated; Z88.0 Allergy status to penicillin; Z88.1 Allergy status to other antibiotic agents; R42 Dizziness and giddiness
CPT/HCPCS: 74176; 80053; 81001; 83690; 84703; 85025; 96361; 96374; 96375; 96376; 99284-25; J1170; J2405; J7030

== ENCOUNTER → 2021-03-24 | Emergency (ER) | payer OTHER ==
[~2021-03-24] VITALS: Ht 167.6 cm; Wt 81.7 kg
[~2021-03-24] MED LIST changes: +HYDROCODON-ACE1 EA10 PO; +MECLIZINE HCL25 MG PO; +PREDNISONE20 MG PO; +ZOFRAN4 MG PO
--- OUTSIDE RECORDS SUMMARY | 2021-03-24 11:32 | XMS ---
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 CRITERIA MET - 6 ED Visits in 6 Months CARE PROVIDERS BENJAMIN ELIAS Current PHONE: [phone] Care Guidelines exist for the following facilities: [facility] ( 11/25/2019 ) Care History Medical/Surgical 01/25/2021 [facility] Care Recommendation: - PLEASE REVIEW PDMP - MARGI - USE EXTREME CAUTION IN GIVING NARCOTICS. - Avoid Discharge Narcotic prescriptions if at all possible. Physician discretion. E.D. VISIT COUNT (12 MO.) 6 [facility] [address] [facility] TOTAL 12 NOTE: Visits indicate total known visits. ED/UCC VISIT TRACKING (12 MO.) 03/24/2021 11:26 [facility] [place] TYPE: Emergency COMPLAINT: - PAIN/NUMBNESS IN ARMS 01/23/2021 19:16 [facility] TYPE: Emergency COMPLAINT: - NAUSEA, VOMITING, ABDOM PAIN DIAGNOSES: - Dizziness and giddiness - Allergy status to other antibiotic agents - Unspecified abdominal pain - Nicotine dependence, unspecified, uncomplicated - Allergy status to penicillin 01/19/2021 16:55 [facility] TYPE: Emergency COMPLAINT: - DIZZINESS,STOMACH PAIN 01/10/2021 13:26 [facility] TYPE: Emergency COMPLAINT: - CHEST PAIN DIAGNOSES: - Allergy status to penicillin - Nicotine dependence, unspecified, uncomplicated - Allergy status to other antibiotic agents - Other chest pain - Urinary tract infection, site not specified 01/08/2021 22:38 [facility] [place] TYPE: Emergency COMPLAINT: - POSS OVERDOSE DIAGNOSES: - POSS OVERDOSE 01/03/2021 16:15 [facility] DIAGNOSES: - Sacrococcygeal disorders, not elsewhere classified - TAIL BONE PAIN - Unspecified fall, initial encounter 12/21/2020 18:16 [facility] [place] TYPE: Emergency DIAGNOSES: - Paresthesia of skin - Anxiety disorder, unspecified - ARM NUMBNESS 09/18/2020 11:56 [facility] TYPE: Emergency COMPLAINT: - FLANK/BACK PAIN DIAGNOSES: - Allergy status to other antibiotic agents - Diverticulitis of intestine, part unspecified, without perforation or abscess without bleeding - Unspecified abdominal pain - Other salvage determiner (current) drug therapy - Allergy status to other antibiotic agents - Nicotine dependence, unspecified, uncomplicated - Allergy status to penicillin 09/17/2020 13:07 [facility] [place] TYPE: Emergency DIAGNOSES: - Zoster without complications - LEFT SIDE PAIN VOMITING NAUSEA 07/04/2020 04:41 [facility] [place] TYPE: Emergency DIAGNOSES: - EYE IRRITATION - Injury of conjunctiva and corneal abrasion without foreign body, left eye, initial encounter 06/02/2020 13:12 [facility] [place] TYPE: Emergency COMPLAINT: - ABDOMINAL/BACK PAIN DIAGNOSES: - Allergy status to other antibiotic agents - Allergy status to penicillin - Right lower quadrant pain - Nicotine dependence, unspecified, uncomplicated 05/31/2020 15:59 [facility] [place] TYPE: Emergency DIAGNOSES: - IUD problems - Unspecified complication of genitourinary prosthetic device, implant and graft, initial encounter INPATIENT VISIT TRACKING (12 MO.) No inpatient visits to display in this time frame [email or web address]
== END ==
LOC: ED 11:25
DX: M79.601 Pain in right arm (principal); M79.602 Pain in left arm; F17.200 Nicotine dependence, unspecified, uncomplicated; Z88.0 Allergy status to penicillin; Z88.1 Allergy status to other antibiotic agents
CPT/HCPCS: 99283